=== PATIENT | female | born 1940 | race Caucasian/White ===

== ENCOUNTER 2016-11-18 11:17 | Inpatient (IN) | payer MEDICARE, OTHER ==
[~2016-11-18] VITALS: Ht 167.6 cm; Wt 94.8 kg
[2016-11-18 11:30] VITALS: BP 197/94
[2016-11-18] MEDS ORDERED: IV NS 0.9% 1,000 ML BAG IV ONE (11:30)
[2016-11-18] MEDS ORDERED: VANCOMYCIN 1 GM in IV D5W 250 ML IV ONE (11:30)
[2016-11-18] MEDS ORDERED: CEFTRIAXONE 1GM BAG (ER ONLY) 50 ML IV ONE ×2 (11:30→12:14)
[2016-11-18] MEDS ORDERED: AZITHROMYCIN 500 MG in IV D5W 250 ML IV ONE (11:30)
[2016-11-18 11:53] LABS: BASOPHILS # (AUTO) 0.4 /CMM (0.0-0.2); BASOPHILS % (AUTO) 3.8 % (0.0-2.0); DIFF TOTAL % 100 %; EOSINOPHILS # (AUTO) 0.2 /CMM (0.0-0.7); EOSINOPHILS % (AUTO) 1.7 % (0.0-6.0); HEMATOCRIT 35 % (33-45); HEMOGLOBIN 11.3 g/dL (11.5-14.8); LYMPHOCYTES # (AUTO) 1.4 /CMM (0.8-4.8); LYMPHOCYTES % (AUTO) 13.3 % (20.0-44.0); MEAN CORPUSCULAR HEMOGLOBIN 30 PG (26.0-33.0); MEAN CORPUSCULAR HGB CONC 33 g/dl (31.0-36.0); MEAN CORPUSCULAR VOLUME 92 fL (82-100); MONOCYTES % (AUTO) 9.9 % (2.0-12.0); NEUTROPHILS # (AUTO) 7.6 /CMM (1.8-8.9); NEUTROPHILS % (AUTO) 71.3 % (43.0-81.0); PLATELET COUNT (AUTO) 365 /CMM (150-450); RED BLOOD CELL COUNT(AUTO) 3.79 MIL/uL (4.0-5.2); WHITE BLOOD COUNT (AUTO) 10.6 K/uL (4.3-11.0)
[2016-11-18 12:01] LABS: CALCIUM, SERUM 9.2 mg/dL (8.5-10.1); CREATININE 0.6 mg/dL (0.6-1.3); POTASSIUM 4.7 mmol/L (3.5-5.1)
[2016-11-18 12:07] LABS: ALBUMIN 3.1 g/dL (3.4-5.0); BILIRUBIN,DIRECT 0.1 mg/dL (0.0-0.2); BILIRUBIN,TOTAL 0.3 mg/dL (0.2-1.0); INDIRECT BILIRUBIN 0.2 mg/dL (0.0-1.1); TOTAL PROTEIN, SERUM 7.3 g/dL (6.4-8.2)
[2016-11-18 12:09] LABS: TROPONIN I 0.049 ng/mL (0.00-0.056)
[2016-11-18] MEDS ORDERED: CEFU500T PO (12:15)
[2016-11-18] MEDS ORDERED: ATOR10TA GT (12:15)
[2016-11-18] MEDS ORDERED: ALLO100T GT (12:15)
[2016-11-18] MEDS ORDERED: LOSA50TA21 GT (12:15)
[2016-11-18] MEDS ORDERED: MAGN400O6 GT (12:15)
[2016-11-18] MEDS ORDERED: DIVA125T2 GT (12:15)
[2016-11-18] MEDS ORDERED: OMEP20CA10 GT (12:15)
[2016-11-18] MEDS ORDERED: FERR220S2 GT (12:15)
[2016-11-18] MEDS ORDERED: PRAM0.5T11 GT (12:15)
[2016-11-18] MEDS ORDERED: LORA1TAB GT (12:15)
[2016-11-18] MEDS ORDERED: BISA10SU8 RC (12:15)
[2016-11-18] MEDS ORDERED: DOCU50LI GT (12:15)
[2016-11-18] MEDS ORDERED: MONT10TA22 GT (12:15)
[2016-11-18] MEDS ORDERED: BUME1TAB16 GT (12:15)
[2016-11-18] MEDS ORDERED: ACET-2605 GT (12:15)
[2016-11-18] MEDS ORDERED: RIVA10TA GT (12:15)
[2016-11-18] MEDS ORDERED: BUDE0.5A6 IH (12:15)
[2016-11-18] MEDS ORDERED: LAMO200T39 GT (12:15)
[2016-11-18] MEDS ORDERED: IV SET PRIMARY PUMP SET 1 EA INFUS.SET MC ONE ×4 (12:15→20:10)
[2016-11-18] MEDS ORDERED: GABA-534 GT (12:15)
[2016-11-18] MEDS ORDERED: LEVO25TA9 GT (12:15)
[2016-11-18] MEDS ORDERED: BUDE0.5A4 IH (12:15)
[2016-11-18] MEDS ORDERED: ALBU2.5V12 IH ×2 (12:15)
[2016-11-18] MEDS ORDERED: ESCI10TA GT (12:15)
[2016-11-18] MEDS ORDERED: HYDR-3326 GT (12:15)
[2016-11-18] MEDS ORDERED: SENN8.6T6 GT (12:15)
[2016-11-18] MEDS ORDERED: ACET160S3 GT (12:15)
[2016-11-18] MEDS ORDERED: IPRA0.2S9 IH ×2 (12:15)
[2016-11-18] MEDS ORDERED: CLON0.1T GT (12:15)
[2016-11-18] MEDS ORDERED: IV NS 0.9% 2,000 ML ONE (12:15)
[2016-11-18] MEDS ORDERED: NA P133E RC (12:15)
[2016-11-18] MEDS ORDERED: PRIM250T GT (12:15)
[2016-11-18 12:20] VITALS: BP 91/50
[2016-11-18 12:20] LABS: LACTIC ACID 1.9 mmol/L (0.4-2.0)
[2016-11-18 13:33] VITALS: BP 121/73
[2016-11-18 13:41] LABS: ABG BASE EXCESS -1.1 mmol/L; ABG HCO3 22.9 mmol/L; ABG PCO2 35.2 mmHg (35.0-45.0); ABG PH 7.431 (7.350-7.450); ABG PO2 452.8 mmHg (75.0-100.0); ABG TOTAL HEMOGLOBIN 9.6 G/dL (12.0-16.0); ALLEN TEST Pass; O2Hb 98.9 % (94.0-97.0)
[2016-11-18 14:06] LABS: KETONES,URINE NEGATIVE (NEGATIVE); LEUKOCYTE ESTERASE ,URINE NEGATIVE (NEGATIVE)
[2016-11-18 14:56] VITALS: BP 99/49
[2016-11-18 15:11] LABS: ADD UA MICROSCOPIC YES
[2016-11-18 15:15] LABS: ADD URINE CULTURE NO
[2016-11-18 17:56] VITALS: BP 157/85
[2016-11-18] MEDS ORDERED: FEE PK DOSING 1 MIN EA MC ONE (18:02)
[2016-11-18] MEDS ORDERED: NA PHOS,M-B/NA PHOS,DI-BA 1 EA ENEMA RC PRN (18:30)
[2016-11-18] MEDS ORDERED: HOME MED MISCELLANEOUS XX SCH (18:30)
[2016-11-18] MEDS ORDERED: MISCELLANEOUS MED 1 EA EA GT PRN (18:30)
[2016-11-18] MEDS ORDERED: MISCELLANEOUS MED 1 EA EA XX ONE (18:30)
[2016-11-18] MEDS ORDERED: BISACODYL SUPP (10 MG) 10 MG/SUPP.RECT SUPP.RECT RC PRN (18:30)
[2016-11-18] MEDS ORDERED: MAGNESIUM HYDROXIDE 30 ML UDC GT PRN (18:30)
[2016-11-18 20:00] VITALS: BP 126/79
[2016-11-18] MEDS: IV NS 0.9% 1,000 ML IV PRN (20:15)
[2016-11-18] MEDS: BUDESONIDE RESPULE INH 0.5 MG/2 ML AMPUL.NEB IH SCH (21:00)
[2016-11-18] MEDS: SENNOSIDES 8.6 MG TABLET GT SCH (21:13)
[2016-11-18] MEDS: ATORVASTATIN 10 MG TABLET GT SCH (21:13)
[2016-11-18] MEDS: PRAMIPEXOLE DI-HCL 0.25 MG TABLET GT SCH (21:13)
[2016-11-18] MEDS: FIBERSOURCE HN 1,000 ML BOTTLE GT PRN (21:14)
[2016-11-18] MEDS: HYDROCODONE/APAP 5/325MG 1 EACH TABLET GT PRN (23:19)
[2016-11-19] VITALS: BP 108/72
[2016-11-19] MEDS ORDERED: BUDESONIDE NS ONE (00:10)
[2016-11-19] MEDS: LORAZEPAM 1 MG TABLET GT PRN ×2 (01:52→05:57)
[2016-11-19] MEDS ORDERED: CLOTRIMAZOLE 1% 15 GM TUBE TP ONE (02:24)
[2016-11-19 04:00] VITALS: BP 112/70
[2016-11-19] MEDS: ACETAMINOPHEN 650 MG/20.3 ML UDC GT PRN ×2 (04:01→21:36)
[2016-11-19] MEDS ORDERED: SECONDARY IV SET 1 EA INFUS.SET MC ONE ×3 (05:47→15:31)
[2016-11-19] MEDS ORDERED: VANCOMYCIN 1.25 GM in IV D5W 500 ML IV SCH (07:00)
[2016-11-19 07:06] LABS: BASOPHILS % (AUTO) 0.6 % (0.0-2.0); DIFF TOTAL % 100 %; EOSINOPHILS # (AUTO) 0.1 /CMM (0.0-0.7); EOSINOPHILS % (AUTO) 1.7 % (0.0-6.0); HEMATOCRIT 31 % (33-45); HEMOGLOBIN 10.3 g/dL (11.5-14.8); LYMPHOCYTES % (AUTO) 12.5 % (20.0-44.0); MEAN CORPUSCULAR HEMOGLOBIN 30 PG (26.0-33.0); MEAN CORPUSCULAR HGB CONC 33 g/dl (31.0-36.0); MEAN CORPUSCULAR VOLUME 92 fL (82-100); NEUTROPHILS # (AUTO) 6.1 /CMM (1.8-8.9); NEUTROPHILS % (AUTO) 73.2 % (43.0-81.0); PLATELET COUNT (AUTO) 272 /CMM (150-450); RED BLOOD CELL COUNT(AUTO) 3.39 MIL/uL (4.0-5.2); WHITE BLOOD COUNT (AUTO) 8.3 K/uL (4.3-11.0)
[2016-11-19 07:18] LABS: INR 1.05 (0.87-1.13); PROTHROMBIN TIME 11.3 SECS (9.5-12.7)
[2016-11-19 07:35] LABS: ALBUMIN 2.6 g/dL (3.4-5.0); BILIRUBIN,TOTAL 0.4 mg/dL (0.2-1.0); CALCIUM, SERUM 8.8 mg/dL (8.5-10.1); CREATININE 0.6 mg/dL (0.6-1.3); POTASSIUM 5.4 mmol/L (3.5-5.1); TOTAL PROTEIN, SERUM 6.6 g/dL (6.4-8.2)
[2016-11-19 07:45] LABS: INDIRECT BILIRUBIN 0.4 mg/dL (0.0-1.1)
[2016-11-19 08:00] VITALS: BP 130/70
[2016-11-19] MEDS: PANTOPRAZOLE 40 MG/PACK PACK GT SCH (08:53)
[2016-11-19] MEDS: LEVOTHYROXINE SODIUM 25 MCG TABLET GT SCH (08:53)
[2016-11-19] MEDS: FERROUS SULFATE UDC 300 MG/5 ML UDC PO SCH ×3 (08:53→17:10)
[2016-11-19] MEDS: ALLOPURINOL 100 MG TABLET GT SCH (08:53)
[2016-11-19] MEDS: CLOTRIMAZOLE 1% 15 GM TUBE TP SCH (08:53)
[2016-11-19] MEDS: MONTELUKAST SODIUM (10MG) 10 MG TABLET GT SCH (08:53)
[2016-11-19] MEDS: DIVALPROEX SODIUM 125 MG CAP.SPRINK GT SCH ×3 (08:53→17:10)
[2016-11-19] MEDS: DOCUSATE SODIUM LIQ 100 MG/10 ML UDC GT SCH ×2 (08:53→17:10)
[2016-11-19] MEDS: BUDESONIDE RESPULE INH 0.5 MG/2 ML AMPUL.NEB IH SCH ×2 (09:00→19:41)
[2016-11-19] MEDS: IV NS 0.9% 1,000 ML IV PRN ×2 (09:36→21:36)
[2016-11-19] MEDS: PRIMIDONE 250 MG TABLET GT SCH ×3 (09:37→17:11)
[2016-11-19] MEDS: PHENAZOPYRIDINE HCL 200 MG TABLET GT SCH ×2 (09:37→17:11)
[2016-11-19] MEDS: LamoTRIgine 100 MG TABLET PO SCH (09:59)
[2016-11-19] MEDS: HYDROCODONE/APAP 5/325MG 1 EACH TABLET GT PRN (10:44)
[2016-11-19] MEDS ORDERED: Z GUARD REMEDY 2 OZ OINT TP PRN (11:00)
[2016-11-19 12:00] VITALS: BP 120/66
[2016-11-19] MEDS: Z GUARD REMEDY 2 OZ OINT TP SCH (12:20)
[2016-11-19] MEDS: CEFTRIAXONE 1 G in IV D5W 50 ML IV SCH (12:21)
[2016-11-19] MEDS ORDERED: ZITHROMAX 500 MG/250 ML D5W IV SCH ×2 (15:00)
[2016-11-19 16:00] VITALS: BP 130/82
[2016-11-19] MEDS ORDERED: RIVAROXABAN 10 MG TABLET GT SCH (17:00)
[2016-11-19] MEDS: LACTOBACILLUS RHAMNOSUS GG 1 EACH CAP.SPRINK GT SCH (17:10)
[2016-11-19] MEDS ORDERED: SODIUM POLYSTYRENE SULFONATE 15 G/60 ML BOTTLE PO ONE (19:30)
[2016-11-19] MEDS: IPRATROPIUM NEB FS 0.5 MG/2.5 ML AMPUL.NEB IH PRN (19:41)
[2016-11-19] MEDS: ALBUTEROL FS 2.5 MG/0.5 ML VIAL.NEB IH PRN (19:41)
[2016-11-19 20:00] VITALS: BP 122/77
[2016-11-19] MEDS ORDERED: SODIUM POLYSTYRENE SULFONATE 15 G/60 ML BOTTLE ONE (21:29)
[2016-11-19] MEDS: SENNOSIDES 8.6 MG TABLET GT SCH (21:36)
[2016-11-19] MEDS: PRAMIPEXOLE DI-HCL 0.25 MG TABLET GT SCH (21:36)
[2016-11-19] MEDS: ATORVASTATIN 10 MG TABLET GT SCH (21:36)
[2016-11-19] MEDS: FIBERSOURCE HN 1,000 ML BOTTLE GT PRN (21:41)
[2016-11-19] MEDS ORDERED: IV NS 0.9% 250 ML IV ONE (22:27)
[2016-11-19] MEDS ORDERED: IV SET PRIMARY PUMP SET 1 EA INFUS.SET MC ONE (22:27)
[2016-11-19] MEDS ORDERED: ENALAPRIL MALEATE (10 MG) 10 MG TABLET ONE (23:27)
[2016-11-19] MEDS ORDERED: BUMETANIDE (1 MG) 1 MG TABLET ONE (23:28)
[2016-11-19] MEDS ORDERED: CARVEDILOL 3.125 MG TABLET ONE (23:28)
[2016-11-19] MEDS: ENALAPRIL MALEATE (10 MG) 10 MG TABLET GT SCH (23:43)
[2016-11-19] MEDS: BUMETANIDE (1 MG) 1 MG TABLET GT SCH (23:43)
[2016-11-19] MEDS: CARVEDILOL 3.125 MG TABLET GT SCH (23:44)
[2016-11-20] VITALS: BP 158/80
[2016-11-20 04:00] VITALS: BP 130/76
[2016-11-20 06:59] LABS: BASOPHILS % (AUTO) 0.4 % (0.0-2.0); DIFF TOTAL % 100 %; EOSINOPHILS # (AUTO) 0.1 /CMM (0.0-0.7); HEMATOCRIT 31 % (33-45); HEMOGLOBIN 10.1 g/dL (11.5-14.8); LYMPHOCYTES # (AUTO) 0.7 /CMM (0.8-4.8); LYMPHOCYTES % (AUTO) 8.3 % (20.0-44.0); MEAN CORPUSCULAR HEMOGLOBIN 30 PG (26.0-33.0); MEAN CORPUSCULAR HGB CONC 33 g/dl (31.0-36.0); MEAN CORPUSCULAR VOLUME 92 fL (82-100); MONOCYTES % (AUTO) 12.1 % (2.0-12.0); NEUTROPHILS # (AUTO) 6.4 /CMM (1.8-8.9); NEUTROPHILS % (AUTO) 78.2 % (43.0-81.0); PLATELET COUNT (AUTO) 293 /CMM (150-450); RED BLOOD CELL COUNT(AUTO) 3.32 MIL/uL (4.0-5.2); WHITE BLOOD COUNT (AUTO) 8.2 K/uL (4.3-11.0)
[2016-11-20 07:19] LABS: CALCIUM, SERUM 8.7 mg/dL (8.5-10.1); CREATININE 0.5 mg/dL (0.6-1.3); POTASSIUM 3.1 mmol/L (3.5-5.1)
[2016-11-20 08:00] VITALS: BP 201/126
[2016-11-20 08:28] LABS: TROPONIN I 0.095 ng/mL (0.00-0.056)
[2016-11-20] MEDS: MONTELUKAST SODIUM (10MG) 10 MG TABLET GT SCH (08:44)
[2016-11-20] MEDS: ALLOPURINOL 100 MG TABLET GT SCH (08:44)
[2016-11-20] MEDS: DOCUSATE SODIUM LIQ 100 MG/10 ML UDC GT SCH ×2 (08:44→17:55)
[2016-11-20] MEDS: FERROUS SULFATE UDC 300 MG/5 ML UDC PO SCH ×3 (08:44→17:55)
[2016-11-20] MEDS: LEVOTHYROXINE SODIUM 25 MCG TABLET GT SCH (08:45)
[2016-11-20] MEDS: PRIMIDONE 250 MG TABLET GT SCH ×3 (08:45→17:55)
[2016-11-20] MEDS: PANTOPRAZOLE 40 MG/PACK PACK GT SCH (08:45)
[2016-11-20] MEDS: PHENAZOPYRIDINE HCL 200 MG TABLET GT SCH ×2 (08:45→17:55)
[2016-11-20] MEDS: BUMETANIDE (1 MG) 1 MG TABLET GT SCH ×2 (08:45→17:56)
[2016-11-20] MEDS: ENALAPRIL MALEATE (10 MG) 10 MG TABLET GT SCH ×2 (08:47→17:55)
[2016-11-20] MEDS: DIVALPROEX SODIUM 125 MG CAP.SPRINK GT SCH ×3 (08:47→17:55)
[2016-11-20] MEDS: CARVEDILOL 3.125 MG TABLET GT SCH (08:48)
[2016-11-20] MEDS: CLOTRIMAZOLE 1% 15 GM TUBE TP SCH (09:00)
[2016-11-20] MEDS: Z GUARD REMEDY 2 OZ OINT TP SCH (09:00)
[2016-11-20] MEDS: BUDESONIDE RESPULE INH 0.5 MG/2 ML AMPUL.NEB IH SCH ×2 (09:18→19:21)
[2016-11-20] MEDS: LACTOBACILLUS RHAMNOSUS GG 1 EACH CAP.SPRINK GT SCH ×2 (09:41→17:55)
[2016-11-20] MEDS: LamoTRIgine 100 MG TABLET PO SCH (09:41)
[2016-11-20] MEDS: HYDROCODONE/APAP 5/325MG 1 EACH TABLET GT PRN (09:48)
[2016-11-20] MEDS: MUPIROCIN OINT 2% 22 GM TUBE SCH ×2 (10:30→21:18)
[2016-11-20] MEDS: ASPIRIN 81 MG TAB.CHEW PO SCH (11:30)
[2016-11-20 12:00] VITALS: BP 153/78
[2016-11-20] MEDS ORDERED: METOPROLOL SUCCINATE 50 MG TAB.SR.24H PO ONE (12:00)
[2016-11-20] MEDS: CEFTRIAXONE 1 G in IV D5W 50 ML IV SCH (12:55)
[2016-11-20] MEDS: POTASSIUM CHLORIDE 20 MEQ POWDER PACKET GT SCH ×2 (12:56→14:23)
[2016-11-20] MEDS: ENOXAPARIN SODIUM 100 MG/ML DISP.SYRIN SQ SCH ×2 (12:56→23:32)
[2016-11-20] MEDS: CARVEDILOL 6.25 MG TABLET PO SCH ×2 (13:20→21:17)
[2016-11-20 16:00] VITALS: BP 93/56
[2016-11-20 20:00] VITALS: BP 162/102
[2016-11-20] MEDS: SENNOSIDES 8.6 MG TABLET GT SCH (21:16)
[2016-11-20] MEDS: PRAMIPEXOLE DI-HCL 0.25 MG TABLET GT SCH (21:16)
[2016-11-20] MEDS: ATORVASTATIN 10 MG TABLET GT SCH (21:16)
[2016-11-20] MEDS: LORAZEPAM 1 MG TABLET GT PRN (21:16)
[2016-11-20] MEDS: ACETAMINOPHEN 650 MG/20.3 ML UDC GT PRN (21:19)
[2016-11-21] VITALS (7 sets, daily range): BP systolic 96–127; BP diastolic 44–69
[2016-11-21] MEDS: FIBERSOURCE HN 1,000 ML BOTTLE GT PRN (05:02)
[2016-11-21] MEDS: FERROUS SULFATE UDC 300 MG/5 ML UDC PO SCH ×3 (08:15→17:28)
[2016-11-21] MEDS: PRIMIDONE 250 MG TABLET GT SCH ×3 (08:15→17:30)
[2016-11-21] MEDS: LEVOTHYROXINE SODIUM 25 MCG TABLET GT SCH (08:15)
[2016-11-21] MEDS: ASPIRIN 81 MG TAB.CHEW PO SCH (08:16)
[2016-11-21] MEDS: BUMETANIDE (1 MG) 1 MG TABLET GT SCH ×2 (08:16→17:29)
[2016-11-21] MEDS: DOCUSATE SODIUM LIQ 100 MG/10 ML UDC GT SCH ×2 (08:16→17:29)
[2016-11-21] MEDS: DIVALPROEX SODIUM 125 MG CAP.SPRINK GT SCH ×3 (08:16→17:30)
[2016-11-21] MEDS: ALLOPURINOL 100 MG TABLET GT SCH (08:16)
[2016-11-21] MEDS: LamoTRIgine 100 MG TABLET PO SCH (08:16)
[2016-11-21] MEDS: PHENAZOPYRIDINE HCL 200 MG TABLET GT SCH ×2 (08:16→17:30)
[2016-11-21] MEDS: PANTOPRAZOLE 40 MG/PACK PACK GT SCH (08:16)
[2016-11-21] MEDS: LACTOBACILLUS RHAMNOSUS GG 1 EACH CAP.SPRINK GT SCH ×2 (08:16→17:30)
[2016-11-21] MEDS: MONTELUKAST SODIUM (10MG) 10 MG TABLET GT SCH (08:17)
[2016-11-21] MEDS: CARVEDILOL 6.25 MG TABLET PO SCH ×2 (08:17→21:00)
[2016-11-21] MEDS: CLOTRIMAZOLE 1% 15 GM TUBE TP SCH (08:18)
[2016-11-21] MEDS: MUPIROCIN OINT 2% 22 GM TUBE SCH ×2 (08:19→21:17)
[2016-11-21] MEDS: Z GUARD REMEDY 2 OZ OINT TP SCH (08:19)
[2016-11-21] MEDS: ENALAPRIL MALEATE (10 MG) 10 MG TABLET GT SCH ×2 (08:25→17:31)
[2016-11-21 08:36] LABS: BASOPHILS % (AUTO) 0.3 % (0.0-2.0); DIFF TOTAL % 100 %; EOSINOPHILS # (AUTO) 0.1 /CMM (0.0-0.7); EOSINOPHILS % (AUTO) 1.3 % (0.0-6.0); HEMATOCRIT 29 % (33-45); HEMOGLOBIN 9.8 g/dL (11.5-14.8); LYMPHOCYTES # (AUTO) 0.7 /CMM (0.8-4.8); LYMPHOCYTES % (AUTO) 6.4 % (20.0-44.0); MEAN CORPUSCULAR HEMOGLOBIN 30 PG (26.0-33.0); MEAN CORPUSCULAR HGB CONC 33 g/dl (31.0-36.0); MEAN CORPUSCULAR VOLUME 92 fL (82-100); MONOCYTES % (AUTO) 9.8 % (2.0-12.0); NEUTROPHILS # (AUTO) 8.5 /CMM (1.8-8.9); NEUTROPHILS % (AUTO) 82.2 % (43.0-81.0); PLATELET COUNT (AUTO) 291 /CMM (150-450); RED BLOOD CELL COUNT(AUTO) 3.21 MIL/uL (4.0-5.2); WHITE BLOOD COUNT (AUTO) 10.3 K/uL (4.3-11.0)
[2016-11-21] MEDS: BUDESONIDE RESPULE INH 0.5 MG/2 ML AMPUL.NEB IH SCH ×2 (09:21→20:34)
[2016-11-21 10:15] LABS: CREATININE 0.7 mg/dL (0.6-1.3)
[2016-11-21] MEDS: LORAZEPAM 1 MG TABLET GT PRN (10:16)
[2016-11-21 10:23] LABS: TROPONIN I 0.127 ng/mL (0.00-0.056)
[2016-11-21 10:48] LABS: POTASSIUM 2.6 mmol/L (3.5-5.1)
[2016-11-21] MEDS: ENOXAPARIN SODIUM 100 MG/ML DISP.SYRIN SQ SCH (11:56)
[2016-11-21] MEDS: CEFTRIAXONE 1 G in IV D5W 50 ML IV SCH (12:00)
[2016-11-21] MEDS ORDERED: POTASSIUM CHLORIDE 20 MEQ POWDER PACKET GT ONE ×2 (12:00→18:00)
[2016-11-21] MEDS: HYDROCODONE/APAP 5/325MG 1 EACH TABLET GT PRN (15:48)
[2016-11-21] MEDS: NITROGLYCERIN PACKET 1 GM PACKET TOP SCH (18:00)
[2016-11-21] MEDS: PRAMIPEXOLE DI-HCL 0.25 MG TABLET GT SCH (21:14)
[2016-11-21] MEDS: SENNOSIDES 8.6 MG TABLET GT SCH (21:15)
[2016-11-21] MEDS: ATORVASTATIN 10 MG TABLET GT SCH (21:15)
[2016-11-22] VITALS (8 sets, daily range): BP systolic 116–156; BP diastolic 44–86
[2016-11-22] MEDS: NITROGLYCERIN PACKET 1 GM PACKET TOP SCH ×4 (00:32→18:11)
[2016-11-22] MEDS: ENOXAPARIN SODIUM 100 MG/ML DISP.SYRIN SQ SCH ×2 (00:32→18:04)
[2016-11-22] MEDS: FIBERSOURCE HN 1,000 ML BOTTLE GT PRN (06:33)
[2016-11-22] MEDS: BUDESONIDE RESPULE INH 0.5 MG/2 ML AMPUL.NEB IH SCH ×2 (07:30→21:41)
[2016-11-22] MEDS: PRIMIDONE 250 MG TABLET GT SCH ×4 (08:05→17:54)
[2016-11-22] MEDS: DOCUSATE SODIUM LIQ 100 MG/10 ML UDC GT SCH ×2 (08:05→17:51)
[2016-11-22] MEDS: PANTOPRAZOLE 40 MG/PACK PACK GT SCH (08:05)
[2016-11-22] MEDS: ASPIRIN 81 MG TAB.CHEW PO SCH (08:05)
[2016-11-22] MEDS: DIVALPROEX SODIUM 125 MG CAP.SPRINK GT SCH ×3 (08:05→17:55)
[2016-11-22] MEDS: BUMETANIDE (1 MG) 1 MG TABLET GT SCH ×2 (08:05→17:00)
[2016-11-22] MEDS: FERROUS SULFATE UDC 300 MG/5 ML UDC PO SCH ×3 (08:05→18:00)
[2016-11-22] MEDS: LamoTRIgine 100 MG TABLET PO SCH (08:05)
[2016-11-22] MEDS: MONTELUKAST SODIUM (10MG) 10 MG TABLET GT SCH (08:05)
[2016-11-22] MEDS: LACTOBACILLUS RHAMNOSUS GG 1 EACH CAP.SPRINK GT SCH ×2 (08:05→17:00)
[2016-11-22] MEDS: ALLOPURINOL 100 MG TABLET GT SCH (08:05)
[2016-11-22] MEDS: LEVOTHYROXINE SODIUM 25 MCG TABLET GT SCH (08:05)
[2016-11-22] MEDS: MUPIROCIN OINT 2% 22 GM TUBE SCH ×2 (08:07→20:41)
[2016-11-22] MEDS: Z GUARD REMEDY 2 OZ OINT TP SCH (08:07)
[2016-11-22] MEDS: CLOTRIMAZOLE 1% 15 GM TUBE TP SCH (08:07)
[2016-11-22] MEDS: ENALAPRIL MALEATE (10 MG) 10 MG TABLET GT SCH ×2 (08:11→17:54)
[2016-11-22] MEDS: CARVEDILOL 6.25 MG TABLET PO SCH ×2 (08:12→20:40)
[2016-11-22 09:37] LABS: DIFF TOTAL % 100 %; EOSINOPHILS # (AUTO) 0.1 /CMM (0.0-0.7); EOSINOPHILS % (AUTO) 1.8 % (0.0-6.0); HEMATOCRIT 28 % (33-45); LYMPHOCYTES # (AUTO) 0.6 /CMM (0.8-4.8); LYMPHOCYTES % (AUTO) 7.3 % (20.0-44.0); MEAN CORPUSCULAR HEMOGLOBIN 30 PG (26.0-33.0); MEAN CORPUSCULAR HGB CONC 33 g/dl (31.0-36.0); MEAN CORPUSCULAR VOLUME 92 fL (82-100); MONOCYTES # (AUTO) 0.6 /CMM (0.1-1.30); MONOCYTES % (AUTO) 7.5 % (2.0-12.0); NEUTROPHILS # (AUTO) 6.9 /CMM (1.8-8.9); NEUTROPHILS % (AUTO) 83.4 % (43.0-81.0); PLATELET COUNT (AUTO) 279 /CMM (150-450); RED BLOOD CELL COUNT(AUTO) 2.98 MIL/uL (4.0-5.2); WHITE BLOOD COUNT (AUTO) 8.2 K/uL (4.3-11.0)
[2016-11-22 09:49] LABS: TROPONIN I 0.063 ng/mL (0.00-0.056)
[2016-11-22 09:52] LABS: CALCIUM, SERUM 8.4 mg/dL (8.5-10.1); CREATININE 0.7 mg/dL (0.6-1.3)
[2016-11-22] MEDS: CEFTRIAXONE 1 G in IV D5W 50 ML IV SCH (12:14)
[2016-11-22 13:03] LABS: ADD UA MICROSCOPIC YES; KETONES,URINE NEGATIVE (NEGATIVE); LEUKOCYTE ESTERASE ,URINE NEGATIVE (NEGATIVE)
[2016-11-22 13:04] LABS: ADD URINE CULTURE NO; WBC,URINE 0-2 /HPF (0-3)
[2016-11-22 13:05] LABS: MUCUS,URINE Few /LPF (None Seen)
[2016-11-22] MEDS: POTASSIUM CHLORIDE 20 MEQ POWDER PACKET GT SCH ×4 (16:30→22:24)
[2016-11-22] MEDS ORDERED: POTASSIUM CHLORIDE 20 MEQ POWDER PACKET ONE (21:07)
[2016-11-22] MEDS: PRAMIPEXOLE DI-HCL 0.25 MG TABLET GT SCH (21:16)
[2016-11-22] MEDS: ATORVASTATIN 10 MG TABLET GT SCH (21:16)
[2016-11-22] MEDS: SENNOSIDES 8.6 MG TABLET GT SCH (21:16)
[2016-11-22] MEDS: LORAZEPAM 1 MG TABLET GT PRN (21:16)
[2016-11-23] VITALS (7 sets, daily range): BP systolic 116–148; BP diastolic 59–97
[2016-11-23] MEDS: NITROGLYCERIN PACKET 1 GM PACKET TOP SCH ×4 (00:57→17:38)
[2016-11-23] MEDS: ENOXAPARIN SODIUM 100 MG/ML DISP.SYRIN SQ SCH ×2 (06:04→21:23)
[2016-11-23 07:05] LABS: BASOPHILS % (AUTO) 0.1 % (0.0-2.0); DIFF TOTAL % 100 %; EOSINOPHILS # (AUTO) 0.2 /CMM (0.0-0.7); EOSINOPHILS % (AUTO) 3.5 % (0.0-6.0); HEMATOCRIT 26 % (33-45); HEMOGLOBIN 8.6 g/dL (11.5-14.8); LYMPHOCYTES # (AUTO) 0.9 /CMM (0.8-4.8); LYMPHOCYTES % (AUTO) 14.2 % (20.0-44.0); MEAN CORPUSCULAR HEMOGLOBIN 30 PG (26.0-33.0); MEAN CORPUSCULAR HGB CONC 33 g/dl (31.0-36.0); MEAN CORPUSCULAR VOLUME 92 fL (82-100); MONOCYTES # (AUTO) 0.6 /CMM (0.1-1.30); NEUTROPHILS # (AUTO) 4.7 /CMM (1.8-8.9); NEUTROPHILS % (AUTO) 72.2 % (43.0-81.0); PLATELET COUNT (AUTO) 266 /CMM (150-450); RED BLOOD CELL COUNT(AUTO) 2.84 MIL/uL (4.0-5.2); WHITE BLOOD COUNT (AUTO) 6.5 K/uL (4.3-11.0)
[2016-11-23 07:08] LABS: TROPONIN I 0.061 ng/mL (0.00-0.056)
[2016-11-23 07:31] LABS: CALCIUM, SERUM 8.4 mg/dL (8.5-10.1); CREATININE 0.7 mg/dL (0.6-1.3); POTASSIUM 3.6 mmol/L (3.5-5.1)
[2016-11-23] MEDS: PANTOPRAZOLE 40 MG/PACK PACK GT SCH (09:05)
[2016-11-23] MEDS: DIVALPROEX SODIUM 125 MG CAP.SPRINK GT SCH ×3 (09:05→16:38)
[2016-11-23] MEDS: ALLOPURINOL 100 MG TABLET GT SCH (09:05)
[2016-11-23] MEDS: DOCUSATE SODIUM LIQ 100 MG/10 ML UDC GT SCH ×2 (09:05→16:37)
[2016-11-23] MEDS: FERROUS SULFATE UDC 300 MG/5 ML UDC PO SCH ×3 (09:05→17:38)
[2016-11-23] MEDS: LACTOBACILLUS RHAMNOSUS GG 1 EACH CAP.SPRINK GT SCH ×2 (09:06→16:37)
[2016-11-23] MEDS: LEVOTHYROXINE SODIUM 25 MCG TABLET GT SCH (09:06)
[2016-11-23] MEDS: ASPIRIN 81 MG TAB.CHEW PO SCH (09:06)
[2016-11-23] MEDS: ENALAPRIL MALEATE (10 MG) 10 MG TABLET GT SCH ×2 (09:06→16:41)
[2016-11-23] MEDS: MONTELUKAST SODIUM (10MG) 10 MG TABLET GT SCH (09:06)
[2016-11-23] MEDS: LamoTRIgine 100 MG TABLET PO SCH (09:07)
[2016-11-23] MEDS: CARVEDILOL 6.25 MG TABLET PO SCH ×2 (09:07→21:21)
[2016-11-23] MEDS: BUMETANIDE (1 MG) 1 MG TABLET GT SCH ×2 (09:07→16:38)
[2016-11-23] MEDS: MUPIROCIN OINT 2% 22 GM TUBE SCH ×2 (09:08→21:23)
[2016-11-23] MEDS: Z GUARD REMEDY 2 OZ OINT TP SCH (09:09)
[2016-11-23] MEDS: CLOTRIMAZOLE 1% 15 GM TUBE TP SCH (09:09)
[2016-11-23] MEDS: BUDESONIDE RESPULE INH 0.5 MG/2 ML AMPUL.NEB IH SCH ×2 (09:29→21:31)
[2016-11-23] MEDS: LORAZEPAM 1 MG TABLET GT PRN ×2 (11:39→16:42)
[2016-11-23] MEDS ORDERED: IV NS 0.9% 250 ML IV ONE (12:26)
[2016-11-23] MEDS: PRIMIDONE 250 MG TABLET GT SCH ×2 (12:32→16:41)
[2016-11-23] MEDS: CEFTRIAXONE 1 G in IV D5W 50 ML IV SCH (12:32)
[2016-11-23] MEDS: FIBERSOURCE HN 1,000 ML BOTTLE GT PRN (12:34)
[2016-11-23] MEDS ORDERED: ONDANSETRON HCL/PF 4 MG/2 ML VIAL IV PRN (15:30)
[2016-11-23] MEDS: PHENAZOPYRIDINE HCL 200 MG TABLET GT PRN (16:57)
[2016-11-23 17:14] LABS: INR 1.1 (0.87-1.13); PROTHROMBIN TIME 11.9 SECS (9.5-12.7)
[2016-11-23] MEDS: SENNOSIDES 8.6 MG TABLET GT SCH (21:21)
[2016-11-23] MEDS: ATORVASTATIN 10 MG TABLET GT SCH (21:21)
[2016-11-23] MEDS: HYDROCODONE/APAP 5/325MG 1 EACH TABLET GT PRN (21:22)
[2016-11-23] MEDS: PRAMIPEXOLE DI-HCL 0.25 MG TABLET GT SCH (21:25)
[2016-11-24] VITALS: BP 149/66
[2016-11-24] MEDS: LORAZEPAM INJ 2 MG/ML VIAL IV PRN ×2 (00:35→16:39)
[2016-11-24] MEDS: NITROGLYCERIN PACKET 1 GM PACKET TOP SCH ×4 (00:39→17:48)
[2016-11-24 04:00] VITALS: BP 149/72
[2016-11-24 07:36] LABS: BASOPHILS % (AUTO) 0.2 % (0.0-2.0); DIFF TOTAL % 100 %; EOSINOPHILS # (AUTO) 0.4 /CMM (0.0-0.7); HEMATOCRIT 31 % (33-45); LYMPHOCYTES % (AUTO) 9.8 % (20.0-44.0); MEAN CORPUSCULAR HEMOGLOBIN 30 PG (26.0-33.0); MEAN CORPUSCULAR HGB CONC 33 g/dl (31.0-36.0); MEAN CORPUSCULAR VOLUME 93 fL (82-100); MONOCYTES % (AUTO) 9.3 % (2.0-12.0); NEUTROPHILS # (AUTO) 8.1 /CMM (1.8-8.9); NEUTROPHILS % (AUTO) 76.7 % (43.0-81.0); PLATELET COUNT (AUTO) 329 /CMM (150-450); WHITE BLOOD COUNT (AUTO) 10.6 K/uL (4.3-11.0)
[2016-11-24 07:47] LABS: TROPONIN I 0.066 ng/mL (0.00-0.056)
[2016-11-24 07:54] LABS: ALBUMIN 2.8 g/dL (3.4-5.0); BILIRUBIN,TOTAL 0.3 mg/dL (0.2-1.0); CALCIUM, SERUM 8.6 mg/dL (8.5-10.1); CREATININE 0.7 mg/dL (0.6-1.3); POTASSIUM 3.3 mmol/L (3.5-5.1); TOTAL PROTEIN, SERUM 6.5 g/dL (6.4-8.2)
[2016-11-24 08:00] VITALS: BP 173/96
[2016-11-24] MEDS: BUMETANIDE (1 MG) 1 MG TABLET GT SCH ×2 (08:40→17:47)
[2016-11-24] MEDS: LEVOTHYROXINE SODIUM 25 MCG TABLET GT SCH (08:41)
[2016-11-24] MEDS: ALLOPURINOL 100 MG TABLET GT SCH (08:41)
[2016-11-24] MEDS: DIVALPROEX SODIUM 125 MG CAP.SPRINK GT SCH ×3 (08:41→17:47)
[2016-11-24] MEDS: PANTOPRAZOLE 40 MG/PACK PACK GT SCH (08:41)
[2016-11-24] MEDS: LACTOBACILLUS RHAMNOSUS GG 1 EACH CAP.SPRINK GT SCH ×2 (08:41→17:47)
[2016-11-24] MEDS: LamoTRIgine 100 MG TABLET PO SCH (08:41)
[2016-11-24] MEDS: LORAZEPAM 1 MG TABLET GT PRN (08:42)
[2016-11-24] MEDS: ENALAPRIL MALEATE (10 MG) 10 MG TABLET GT SCH ×2 (08:43→17:00)
[2016-11-24] MEDS: CARVEDILOL 6.25 MG TABLET PO SCH ×2 (08:44→21:21)
[2016-11-24] MEDS: PRIMIDONE 250 MG TABLET GT SCH ×3 (08:44→17:47)
[2016-11-24] MEDS: HYDROCODONE/APAP 5/325MG 1 EACH TABLET GT PRN ×2 (08:45→14:37)
[2016-11-24] MEDS: DOCUSATE SODIUM LIQ 100 MG/10 ML UDC GT SCH ×2 (08:45→17:47)
[2016-11-24] MEDS: MONTELUKAST SODIUM (10MG) 10 MG TABLET GT SCH (08:45)
[2016-11-24] MEDS: FERROUS SULFATE UDC 300 MG/5 ML UDC PO SCH ×3 (08:45→17:47)
[2016-11-24] MEDS: ASPIRIN 81 MG TAB.CHEW PO SCH (08:46)
[2016-11-24] MEDS: MUPIROCIN OINT 2% 22 GM TUBE SCH ×2 (08:46→21:21)
[2016-11-24] MEDS: CLOTRIMAZOLE 1% 15 GM TUBE TP SCH (08:46)
[2016-11-24] MEDS: Z GUARD REMEDY 2 OZ OINT TP SCH (08:47)
[2016-11-24] MEDS: ENOXAPARIN SODIUM 100 MG/ML DISP.SYRIN SQ SCH ×2 (08:49→21:27)
[2016-11-24] MEDS: BUDESONIDE RESPULE INH 0.5 MG/2 ML AMPUL.NEB IH SCH ×2 (09:29→21:06)
[2016-11-24] MEDS: PHENAZOPYRIDINE HCL 200 MG TABLET GT PRN (11:57)
[2016-11-24 12:00] VITALS: BP 94/45
[2016-11-24] MEDS: CEFTRIAXONE 1 G in IV D5W 50 ML IV SCH (12:01)
[2016-11-24] MEDS ORDERED: POTASSIUM CHLORIDE 20 MEQ POWDER PACKET GT SCH (13:00)
[2016-11-24 16:00] VITALS: BP 99/49
[2016-11-24] MEDS: FIBERSOURCE HN 1,000 ML BOTTLE GT PRN (17:55)
[2016-11-24 20:00] VITALS: BP 157/82
[2016-11-24] MEDS: SENNOSIDES 8.6 MG TABLET GT SCH (21:21)
[2016-11-24] MEDS: ATORVASTATIN 10 MG TABLET GT SCH (21:21)
[2016-11-24] MEDS: PRAMIPEXOLE DI-HCL 0.25 MG TABLET GT SCH (21:31)
[2016-11-25] VITALS: BP 115/62
[2016-11-25] MEDS: NITROGLYCERIN PACKET 1 GM PACKET TOP SCH ×5 (00:13→23:30)
[2016-11-25 04:00] VITALS: BP 108/56
[2016-11-25 07:01] LABS: BASOPHILS % (AUTO) 0.5 % (0.0-2.0); DIFF TOTAL % 100 %; EOSINOPHILS # (AUTO) 0.3 /CMM (0.0-0.7); EOSINOPHILS % (AUTO) 4.5 % (0.0-6.0); HEMATOCRIT 29 % (33-45); HEMOGLOBIN 9.3 g/dL (11.5-14.8); LYMPHOCYTES # (AUTO) 1.1 /CMM (0.8-4.8); LYMPHOCYTES % (AUTO) 14.2 % (20.0-44.0); MEAN CORPUSCULAR HEMOGLOBIN 30 PG (26.0-33.0); MEAN CORPUSCULAR HGB CONC 33 g/dl (31.0-36.0); MEAN CORPUSCULAR VOLUME 93 fL (82-100); MONOCYTES # (AUTO) 0.8 /CMM (0.1-1.30); NEUTROPHILS # (AUTO) 5.3 /CMM (1.8-8.9); NEUTROPHILS % (AUTO) 70.8 % (43.0-81.0); PLATELET COUNT (AUTO) 296 /CMM (150-450); RED BLOOD CELL COUNT(AUTO) 3.06 MIL/uL (4.0-5.2); WHITE BLOOD COUNT (AUTO) 7.5 K/uL (4.3-11.0)
[2016-11-25 07:07] LABS: CALCIUM, SERUM 8.6 mg/dL (8.5-10.1); CREATININE 0.7 mg/dL (0.6-1.3); POTASSIUM 3.2 mmol/L (3.5-5.1)
[2016-11-25 07:19] LABS: ALBUMIN 2.7 g/dL (3.4-5.0); BILIRUBIN,TOTAL 0.4 mg/dL (0.2-1.0); TOTAL PROTEIN, SERUM 6.3 g/dL (6.4-8.2)
[2016-11-25 08:00] VITALS: BP 110/55
[2016-11-25] MEDS: LACTOBACILLUS RHAMNOSUS GG 1 EACH CAP.SPRINK GT SCH ×2 (08:38→16:00)
[2016-11-25] MEDS: BUDESONIDE RESPULE INH 0.5 MG/2 ML AMPUL.NEB IH SCH ×3 (08:38→21:23)
[2016-11-25] MEDS: PANTOPRAZOLE 40 MG/PACK PACK GT SCH (08:38)
[2016-11-25] MEDS: PRIMIDONE 250 MG TABLET GT SCH ×3 (08:38→16:00)
[2016-11-25] MEDS: BUMETANIDE (1 MG) 1 MG TABLET GT SCH ×2 (08:38→16:00)
[2016-11-25] MEDS: Z GUARD REMEDY 2 OZ OINT TP SCH (08:39)
[2016-11-25] MEDS: ENALAPRIL MALEATE (10 MG) 10 MG TABLET GT SCH ×2 (08:39→16:00)
[2016-11-25] MEDS: ALLOPURINOL 100 MG TABLET GT SCH (08:39)
[2016-11-25] MEDS: ASPIRIN 81 MG TAB.CHEW PO SCH (08:39)
[2016-11-25] MEDS: MONTELUKAST SODIUM (10MG) 10 MG TABLET GT SCH (08:39)
[2016-11-25] MEDS: FERROUS SULFATE UDC 300 MG/5 ML UDC PO SCH ×3 (08:39→17:00)
[2016-11-25] MEDS: CARVEDILOL 6.25 MG TABLET PO SCH ×2 (08:39→21:17)
[2016-11-25] MEDS: DOCUSATE SODIUM LIQ 100 MG/10 ML UDC GT SCH ×2 (08:39→16:00)
[2016-11-25] MEDS: LEVOTHYROXINE SODIUM 25 MCG TABLET GT SCH (08:39)
[2016-11-25] MEDS: LamoTRIgine 100 MG TABLET PO SCH (08:39)
[2016-11-25] MEDS: DIVALPROEX SODIUM 125 MG CAP.SPRINK GT SCH ×3 (08:39→16:00)
[2016-11-25] MEDS: CLOTRIMAZOLE 1% 15 GM TUBE TP SCH (08:40)
[2016-11-25] MEDS: MUPIROCIN OINT 2% 22 GM TUBE SCH ×2 (08:40→21:27)
[2016-11-25] MEDS: ENOXAPARIN SODIUM 100 MG/ML DISP.SYRIN SQ SCH ×2 (08:41→21:16)
[2016-11-25 09:30] LABS: TROPONIN I 0.043 ng/mL (0.00-0.056)
[2016-11-25] MEDS ORDERED: METOCLOPRAMIDE HCL 10 MG/2 ML VIAL IV SCH (10:30)
[2016-11-25 12:00] VITALS: BP 103/35
[2016-11-25] MEDS: CEFTRIAXONE 1 G in IV D5W 50 ML IV SCH (12:14)
[2016-11-25] MEDS: POTASSIUM CHLORIDE 20 MEQ POWDER PACKET GT SCH ×2 (12:16→14:57)
[2016-11-25] MEDS: FIBERSOURCE HN 1,000 ML BOTTLE GT PRN (15:55)
[2016-11-25 16:00] VITALS: BP 98/35
[2016-11-25 20:00] VITALS: BP 113/55
[2016-11-25] MEDS: SENNOSIDES 8.6 MG TABLET GT SCH (21:24)
[2016-11-25] MEDS: ATORVASTATIN 10 MG TABLET GT SCH (21:24)
[2016-11-25] MEDS: PRAMIPEXOLE DI-HCL 0.25 MG TABLET GT SCH (21:26)
[2016-11-26] VITALS: BP 99/50
[2016-11-26 04:00] VITALS: BP 135/66
[2016-11-26] MEDS: HYDROCODONE/APAP 5/325MG 1 EACH TABLET GT PRN ×2 (04:23→12:43)
[2016-11-26] MEDS: NITROGLYCERIN PACKET 1 GM PACKET TOP SCH ×3 (06:00→17:09)
[2016-11-26 07:19] LABS: BASOPHILS # (AUTO) 0.1 /CMM (0.0-0.2); BASOPHILS % (AUTO) 1.2 % (0.0-2.0); DIFF TOTAL % 100 %; EOSINOPHILS # (AUTO) 0.3 /CMM (0.0-0.7); EOSINOPHILS % (AUTO) 3.6 % (0.0-6.0); HEMATOCRIT 25 % (33-45); HEMOGLOBIN 8.2 g/dL (11.5-14.8); LYMPHOCYTES # (AUTO) 0.7 /CMM (0.8-4.8); LYMPHOCYTES % (AUTO) 9.5 % (20.0-44.0); MEAN CORPUSCULAR HEMOGLOBIN 31 PG (26.0-33.0); MEAN CORPUSCULAR HGB CONC 33 g/dl (31.0-36.0); MEAN CORPUSCULAR VOLUME 93 fL (82-100); MONOCYTES # (AUTO) 0.6 /CMM (0.1-1.30); MONOCYTES % (AUTO) 8.1 % (2.0-12.0); NEUTROPHILS # (AUTO) 5.8 /CMM (1.8-8.9); NEUTROPHILS % (AUTO) 77.6 % (43.0-81.0); PLATELET COUNT (AUTO) 315 /CMM (150-450); RED BLOOD CELL COUNT(AUTO) 2.68 MIL/uL (4.0-5.2); WHITE BLOOD COUNT (AUTO) 7.5 K/uL (4.3-11.0)
[2016-11-26 07:41] LABS: CALCIUM, SERUM 8.3 mg/dL (8.5-10.1); CREATININE 0.8 mg/dL (0.6-1.3); POTASSIUM 3.5 mmol/L (3.5-5.1)
[2016-11-26 08:00] VITALS: BP_SYST 123; BP_SYST 127; BP_DIAS 46; BP_DIAS 51
[2016-11-26] MEDS: BUDESONIDE RESPULE INH 0.5 MG/2 ML AMPUL.NEB IH SCH ×2 (08:00→21:58)
[2016-11-26] MEDS: ALBUTEROL FS 2.5 MG/0.5 ML VIAL.NEB IH PRN (08:00)
[2016-11-26] MEDS: IPRATROPIUM NEB FS 0.5 MG/2.5 ML AMPUL.NEB IH PRN (08:00)
[2016-11-26] MEDS: ASPIRIN 81 MG TAB.CHEW PO SCH (08:26)
[2016-11-26] MEDS: LACTOBACILLUS RHAMNOSUS GG 1 EACH CAP.SPRINK GT SCH ×2 (08:26→16:58)
[2016-11-26] MEDS: LamoTRIgine 100 MG TABLET PO SCH (08:26)
[2016-11-26] MEDS: DOCUSATE SODIUM LIQ 100 MG/10 ML UDC GT SCH ×2 (08:26→16:59)
[2016-11-26] MEDS: FERROUS SULFATE UDC 300 MG/5 ML UDC PO SCH ×3 (08:26→16:59)
[2016-11-26] MEDS: ENALAPRIL MALEATE (10 MG) 10 MG TABLET GT SCH ×2 (08:27→16:58)
[2016-11-26] MEDS: PANTOPRAZOLE 40 MG/PACK PACK GT SCH (08:27)
[2016-11-26] MEDS: ENOXAPARIN SODIUM 100 MG/ML DISP.SYRIN SQ SCH ×2 (08:28→21:42)
[2016-11-26] MEDS: ALLOPURINOL 100 MG TABLET GT SCH (08:28)
[2016-11-26] MEDS: LORAZEPAM INJ 2 MG/ML VIAL IV PRN ×2 (08:28→14:59)
[2016-11-26] MEDS: LEVOTHYROXINE SODIUM 25 MCG TABLET GT SCH (08:28)
[2016-11-26] MEDS: PRIMIDONE 250 MG TABLET GT SCH ×3 (08:29→16:58)
[2016-11-26] MEDS: MONTELUKAST SODIUM (10MG) 10 MG TABLET GT SCH (08:29)
[2016-11-26] MEDS: CARVEDILOL 12.5 MG TABLET PO SCH ×2 (08:29→21:41)
[2016-11-26] MEDS: BUMETANIDE (1 MG) 1 MG TABLET GT SCH ×2 (08:30→16:59)
[2016-11-26] MEDS: DIVALPROEX SODIUM 125 MG CAP.SPRINK GT SCH ×3 (08:30→16:58)
[2016-11-26] MEDS: CLOTRIMAZOLE 1% 15 GM TUBE TP SCH (09:00)
[2016-11-26] MEDS: Z GUARD REMEDY 2 OZ OINT TP SCH (09:00)
[2016-11-26] MEDS: MUPIROCIN OINT 2% 22 GM TUBE SCH ×2 (09:00→21:43)
[2016-11-26 09:08] LABS: TROPONIN I 0.032 ng/mL (0.00-0.056)
[2016-11-26 12:00] VITALS: BP 95/50
[2016-11-26] MEDS: CEFTRIAXONE 1 G in IV D5W 50 ML IV SCH (12:05)
[2016-11-26] MEDS: FIBERSOURCE HN 1,000 ML BOTTLE GT PRN (14:55)
[2016-11-26] MEDS: ACETAMINOPHEN 650 MG/20.3 ML UDC GT PRN (14:59)
[2016-11-26 16:00] VITALS: BP 118/51
[2016-11-26 20:00] VITALS: BP 118/77
[2016-11-26] MEDS: PRAMIPEXOLE DI-HCL 0.25 MG TABLET GT SCH (21:40)
[2016-11-26] MEDS: SENNOSIDES 8.6 MG TABLET GT SCH (21:41)
[2016-11-26] MEDS: ATORVASTATIN 10 MG TABLET GT SCH (21:41)
[2016-11-27] VITALS: BP 97/48
[2016-11-27 04:00] VITALS: BP 96/63
[2016-11-27] MEDS: NITROGLYCERIN PACKET 1 GM PACKET TOP SCH ×4 (06:00→17:16)
[2016-11-27] MEDS: FIBERSOURCE HN 1,000 ML BOTTLE GT PRN (06:07)
[2016-11-27] MEDS: HYDROCODONE/APAP 5/325MG 1 EACH TABLET GT PRN (06:07)
[2016-11-27 07:02] LABS: BASOPHILS # (AUTO) 0.1 /CMM (0.0-0.2); BASOPHILS % (AUTO) 0.9 % (0.0-2.0); DIFF TOTAL % 100 %; EOSINOPHILS # (AUTO) 0.3 /CMM (0.0-0.7); EOSINOPHILS % (AUTO) 4.3 % (0.0-6.0); HEMATOCRIT 26 % (33-45); HEMOGLOBIN 8.5 g/dL (11.5-14.8); LYMPHOCYTES # (AUTO) 0.7 /CMM (0.8-4.8); LYMPHOCYTES % (AUTO) 9.3 % (20.0-44.0); MEAN CORPUSCULAR HEMOGLOBIN 30 PG (26.0-33.0); MEAN CORPUSCULAR HGB CONC 32 g/dl (31.0-36.0); MEAN CORPUSCULAR VOLUME 92 fL (82-100); MONOCYTES # (AUTO) 0.6 /CMM (0.1-1.30); MONOCYTES % (AUTO) 7.5 % (2.0-12.0); NEUTROPHILS # (AUTO) 6.2 /CMM (1.8-8.9); PLATELET COUNT (AUTO) 318 /CMM (150-450); RED BLOOD CELL COUNT(AUTO) 2.84 MIL/uL (4.0-5.2)
[2016-11-27 08:00] VITALS: BP 102/63
[2016-11-27] MEDS: FERROUS SULFATE UDC 300 MG/5 ML UDC PO SCH ×3 (08:08→17:15)
[2016-11-27] MEDS: DOCUSATE SODIUM LIQ 100 MG/10 ML UDC GT SCH ×2 (08:08→17:15)
[2016-11-27] MEDS: DIVALPROEX SODIUM 125 MG CAP.SPRINK GT SCH ×3 (08:08→17:15)
[2016-11-27] MEDS: MONTELUKAST SODIUM (10MG) 10 MG TABLET GT SCH (08:08)
[2016-11-27] MEDS: PANTOPRAZOLE 40 MG/PACK PACK GT SCH (08:09)
[2016-11-27] MEDS: LACTOBACILLUS RHAMNOSUS GG 1 EACH CAP.SPRINK GT SCH ×2 (08:09→17:15)
[2016-11-27] MEDS: BUMETANIDE (1 MG) 1 MG TABLET GT SCH ×2 (08:09→17:15)
[2016-11-27] MEDS: LamoTRIgine 100 MG TABLET PO SCH (08:09)
[2016-11-27] MEDS: ASPIRIN 81 MG TAB.CHEW PO SCH (08:09)
[2016-11-27] MEDS: LEVOTHYROXINE SODIUM 25 MCG TABLET GT SCH (08:09)
[2016-11-27] MEDS: ALLOPURINOL 100 MG TABLET GT SCH (08:10)
[2016-11-27] MEDS: PRIMIDONE 250 MG TABLET GT SCH ×3 (08:10→17:15)
[2016-11-27] MEDS: CARVEDILOL 12.5 MG TABLET PO SCH ×2 (08:11→21:00)
[2016-11-27] MEDS: ENALAPRIL MALEATE (10 MG) 10 MG TABLET GT SCH ×2 (08:12→17:00)
[2016-11-27] MEDS: ENOXAPARIN SODIUM 100 MG/ML DISP.SYRIN SQ SCH (08:12)
[2016-11-27] MEDS: MUPIROCIN OINT 2% 22 GM TUBE SCH ×2 (08:14→21:52)
[2016-11-27] MEDS: Z GUARD REMEDY 2 OZ OINT TP SCH (08:14)
[2016-11-27] MEDS: CLOTRIMAZOLE 1% 15 GM TUBE TP SCH (08:15)
[2016-11-27 09:20] LABS: CALCIUM, SERUM 8.3 mg/dL (8.5-10.1); CREATININE 0.7 mg/dL (0.6-1.3); POTASSIUM 3.3 mmol/L (3.5-5.1)
[2016-11-27] MEDS: BUDESONIDE RESPULE INH 0.5 MG/2 ML AMPUL.NEB IH SCH ×2 (10:39→20:03)
[2016-11-27 12:00] VITALS: BP 115/50
[2016-11-27] MEDS ORDERED: POTASSIUM CHLORIDE 20 MEQ POWDER PACKET GT ONE (12:00)
[2016-11-27] MEDS: CEFTRIAXONE 1 G in IV D5W 50 ML IV SCH (12:12)
[2016-11-27] MEDS: PHENAZOPYRIDINE HCL 200 MG TABLET GT SCH ×2 (12:12→17:15)
[2016-11-27 16:00] VITALS: BP 98/61
[2016-11-27 20:00] VITALS: BP 90/50
[2016-11-27] MEDS ORDERED: CLARITHROMYCIN 500 MG TABLET PO SCH (21:00)
[2016-11-27] MEDS: SENNOSIDES 8.6 MG TABLET GT SCH (21:52)
[2016-11-27] MEDS: PRAMIPEXOLE DI-HCL 0.25 MG TABLET GT SCH (21:53)
[2016-11-27] MEDS: ATORVASTATIN 10 MG TABLET GT SCH (21:53)
[2016-11-28] VITALS: BP 90/50
[2016-11-28] MEDS: NITROGLYCERIN PACKET 1 GM PACKET TOP SCH ×4 (01:00→17:36)
[2016-11-28 04:00] VITALS: BP 121/48
[2016-11-28] MEDS: BUDESONIDE RESPULE INH 0.5 MG/2 ML AMPUL.NEB IH SCH ×2 (07:31→21:17)
[2016-11-28 07:36] LABS: CALCIUM, SERUM 8.6 mg/dL (8.5-10.1); CREATININE 0.7 mg/dL (0.6-1.3)
[2016-11-28 08:00] VITALS: BP 147/77
[2016-11-28] MEDS: LamoTRIgine 100 MG TABLET PO SCH (08:05)
[2016-11-28] MEDS: PHENAZOPYRIDINE HCL 200 MG TABLET GT SCH ×3 (08:05→17:35)
[2016-11-28] MEDS: BUMETANIDE (1 MG) 1 MG TABLET GT SCH ×2 (08:05→17:34)
[2016-11-28] MEDS: LACTOBACILLUS RHAMNOSUS GG 1 EACH CAP.SPRINK GT SCH ×2 (08:05→17:35)
[2016-11-28] MEDS: DOCUSATE SODIUM LIQ 100 MG/10 ML UDC GT SCH ×2 (08:06→17:35)
[2016-11-28] MEDS: FERROUS SULFATE UDC 300 MG/5 ML UDC PO SCH ×3 (08:06→17:36)
[2016-11-28] MEDS: MONTELUKAST SODIUM (10MG) 10 MG TABLET GT SCH (08:06)
[2016-11-28] MEDS: PRIMIDONE 250 MG TABLET GT SCH ×3 (08:06→17:35)
[2016-11-28] MEDS: LEVOTHYROXINE SODIUM 25 MCG TABLET GT SCH (08:06)
[2016-11-28] MEDS: ENALAPRIL MALEATE (10 MG) 10 MG TABLET GT SCH ×2 (08:07→17:00)
[2016-11-28] MEDS: ALLOPURINOL 100 MG TABLET GT SCH (08:07)
[2016-11-28] MEDS: CARVEDILOL 12.5 MG TABLET PO SCH ×2 (08:07→21:19)
[2016-11-28] MEDS: PANTOPRAZOLE 40 MG/PACK PACK GT SCH (08:07)
[2016-11-28] MEDS: DIVALPROEX SODIUM 125 MG CAP.SPRINK GT SCH ×3 (08:07→17:35)
[2016-11-28] MEDS: ASPIRIN 81 MG TAB.CHEW PO SCH (08:07)
[2016-11-28] MEDS: CLOTRIMAZOLE 1% 15 GM TUBE TP SCH (08:08)
[2016-11-28] MEDS: Z GUARD REMEDY 2 OZ OINT TP SCH (08:08)
[2016-11-28] MEDS: MUPIROCIN OINT 2% 22 GM TUBE SCH ×2 (08:10→21:21)
[2016-11-28] MEDS: HYDROCODONE/APAP 5/325MG 1 EACH TABLET GT PRN (09:44)
[2016-11-28 12:00] VITALS: BP 113/57
[2016-11-28 16:00] VITALS: BP 109/52
[2016-11-28] MEDS: FIBERSOURCE HN 1,000 ML BOTTLE GT PRN (17:31)
[2016-11-28 20:00] VITALS: BP 109/52
[2016-11-28] MEDS: PRAMIPEXOLE DI-HCL 0.25 MG TABLET GT SCH (21:18)
[2016-11-28] MEDS: SENNOSIDES 8.6 MG TABLET GT SCH (21:19)
[2016-11-28] MEDS: ATORVASTATIN 10 MG TABLET GT SCH (21:19)
[2016-11-29] VITALS (7 sets, daily range): BP systolic 90–166; BP diastolic 45–91
[2016-11-29] MEDS: HYDROCODONE/APAP 5/325MG 1 EACH TABLET GT PRN (04:49)
[2016-11-29] MEDS: NITROGLYCERIN PACKET 1 GM PACKET TOP SCH ×4 (05:07→18:12)
[2016-11-29] MEDS: BUDESONIDE RESPULE INH 0.5 MG/2 ML AMPUL.NEB IH SCH ×2 (07:30→21:36)
[2016-11-29 07:53] LABS: BASOPHILS % (AUTO) 0.4 % (0.0-2.0); DIFF TOTAL % 100 %; EOSINOPHILS # (AUTO) 0.3 /CMM (0.0-0.7); EOSINOPHILS % (AUTO) 4.7 % (0.0-6.0); HEMATOCRIT 27 % (33-45); LYMPHOCYTES # (AUTO) 0.7 /CMM (0.8-4.8); LYMPHOCYTES % (AUTO) 13.6 % (20.0-44.0); MEAN CORPUSCULAR HEMOGLOBIN 31 PG (26.0-33.0); MEAN CORPUSCULAR HGB CONC 33 g/dl (31.0-36.0); MEAN CORPUSCULAR VOLUME 94 fL (82-100); MONOCYTES # (AUTO) 0.7 /CMM (0.1-1.30); NEUTROPHILS # (AUTO) 3.8 /CMM (1.8-8.9); NEUTROPHILS % (AUTO) 69.3 % (43.0-81.0); PLATELET COUNT (AUTO) 373 /CMM (150-450); WHITE BLOOD COUNT (AUTO) 5.5 K/uL (4.3-11.0)
[2016-11-29 08:14] LABS: CALCIUM, SERUM 8.7 mg/dL (8.5-10.1); CREATININE 0.7 mg/dL (0.6-1.3); POTASSIUM 3.9 mmol/L (3.5-5.1)
[2016-11-29] MEDS: FERROUS SULFATE UDC 300 MG/5 ML UDC PO SCH ×3 (08:36→18:10)
[2016-11-29] MEDS: PANTOPRAZOLE 40 MG/PACK PACK GT SCH (08:36)
[2016-11-29] MEDS: LEVOTHYROXINE SODIUM 25 MCG TABLET GT SCH (08:36)
[2016-11-29] MEDS: ASPIRIN 81 MG TAB.CHEW PO SCH (08:36)
[2016-11-29] MEDS: ALLOPURINOL 100 MG TABLET GT SCH (08:36)
[2016-11-29] MEDS: DIVALPROEX SODIUM 125 MG CAP.SPRINK GT SCH ×3 (08:36→18:10)
[2016-11-29] MEDS: DOCUSATE SODIUM LIQ 100 MG/10 ML UDC GT SCH ×2 (08:36→18:10)
[2016-11-29] MEDS: LACTOBACILLUS RHAMNOSUS GG 1 EACH CAP.SPRINK GT SCH ×2 (08:36→18:10)
[2016-11-29] MEDS: MONTELUKAST SODIUM (10MG) 10 MG TABLET GT SCH (08:36)
[2016-11-29] MEDS: PHENAZOPYRIDINE HCL 200 MG TABLET GT SCH ×3 (08:36→18:10)
[2016-11-29] MEDS: PRIMIDONE 250 MG TABLET GT SCH ×3 (08:37→18:11)
[2016-11-29] MEDS: CARVEDILOL 12.5 MG TABLET PO SCH ×2 (08:37→21:00)
[2016-11-29] MEDS: LamoTRIgine 100 MG TABLET PO SCH (08:37)
[2016-11-29] MEDS: BUMETANIDE (1 MG) 1 MG TABLET GT SCH ×2 (08:37→18:10)
[2016-11-29] MEDS: Z GUARD REMEDY 2 OZ OINT TP SCH (08:39)
[2016-11-29] MEDS: CLOTRIMAZOLE 1% 15 GM TUBE TP SCH (08:40)
[2016-11-29] MEDS: MUPIROCIN OINT 2% 22 GM TUBE SCH ×2 (08:40→21:05)
[2016-11-29] MEDS: ENALAPRIL MALEATE (10 MG) 10 MG TABLET GT SCH ×2 (08:40→18:11)
[2016-11-29] MEDS: LORAZEPAM 1 MG TABLET GT PRN ×2 (16:31→21:03)
[2016-11-29] MEDS: ATORVASTATIN 10 MG TABLET GT SCH (21:02)
[2016-11-29] MEDS: PRAMIPEXOLE DI-HCL 0.25 MG TABLET GT SCH (21:02)
[2016-11-29] MEDS: SENNOSIDES 8.6 MG TABLET GT SCH (21:02)
== END 2016-11-29 22:59 | DRG 870 ==
LOC: ER 11:19 → TELE-TD 16:51 → TELE1 11-20 13:50
PROVIDERS: ADMIT Internal Medicine Rheumatology; ATTEND Internal Medicine Rheumatology
PROC: 5A1955Z Respiratory Ventilation, Greater than 96 Consecutive Hours (ICD-10-PCS; principal; 2016-11-18)
PROC: 05H633Z Insertion of Infusion Device into Left Subclavian Vein, Percutaneous Approach (ICD-10-PCS; 2016-11-18)
PROC: 05H533Z Insertion of Infusion Device into Right Subclavian Vein, Percutaneous Approach (ICD-10-PCS; 2016-11-27)
DX: A41.9 Sepsis, unspecified organism (principal); I21.4 Non-ST elevation (NSTEMI) myocardial infarction; J18.9 Pneumonia, unspecified organism; R65.21 Severe sepsis with septic shock; J44.1 Chronic obstructive pulmonary disease with (acute) exacerbation; J96.11 Chronic respiratory failure with hypoxia; J96.12 Chronic respiratory failure with hypercapnia; Z99.11 Dependence on respirator [ventilator] status; J90 Pleural effusion, not elsewhere classified; N39.0 Urinary tract infection, site not specified; F41.9 Anxiety disorder, unspecified; F03.90 Unspecified dementia, unspecified severity, without behavioral disturbance, psychotic disturbance, mood disturbance, and anxiety; J44.9 Chronic obstructive pulmonary disease, unspecified; E78.5 Hyperlipidemia, unspecified; E03.9 Hypothyroidism, unspecified; I48.91 Unspecified atrial fibrillation; G20 Parkinson's disease; I48.0 Paroxysmal atrial fibrillation; Z87.11 Personal history of peptic ulcer disease; E87.5 Hyperkalemia; I50.9 Heart failure, unspecified; I11.0 Hypertensive heart disease with heart failure; Z93.1 Gastrostomy status; E87.6 Hypokalemia
CPT/HCPCS: 31720; 36415; 36600; 71010-TC; 80048-TC; 80053-TC; 80076-TC; 80164-TC; 81000-TC; 83605-TC; 83735-TC; 83880; 84484-TC; 85025-TC; 85610-TC; 85730-TC; 87040-TC; 87070-TC; 87081-TC; 87086-TC; 87186-TC; 87400; 93307-TC; 94002-TC; 94003-TC; 94640-TC; A4606; J0456; J0696; J1650; J2060; J3370; J7030; J7050; J7060; Z7610

== ENCOUNTER 2019-12-08 10:15 | Inpatient (IN) | payer MEDICARE, OTHER ==
[2019-12-08] VITALS (26 sets, daily range): BP systolic 89–137; BP diastolic 42–92
[~2019-12-08] VITALS: Ht 170.2 cm; Wt 82.1 kg
[~2019-12-08 10:15] MED LIST: ACET-2605 GT; ACET650S26 GT; ALBU2.5V13 IH; ALLO100T GT; ATOR10TA GT; BISA10SU11 RC; BUDE0.5A4 IH; BUDE0.5A6 IH; DIVA125T2 GT; DOCU50LI GT; FERR220S2 GT; HYDR-3974 GT; IPRA0.2S9 IH; LAMO200T10 GT; LEVO25TA9 GT; LORA1TAB GT; MAGN400O6 GT; MONT10TA22 GT; NA P133E RC; OMEP20CA15 GT; PRAM0.5T11 GT; PRIM250T GT; RIVA10TA GT; SENN-261 GT
[2019-12-08] MEDS ORDERED: PIPERACILLIN /TAZOBACTAM 3.375 G in IV D5W 50 ML IV ONE (10:30)
[2019-12-08] MEDS ORDERED: IV NS 0.9% 1,000 ML BAG IV ONE ×2 (10:30→11:30)
[2019-12-08] MEDS ORDERED: VANCOMYCIN HCL 1 GM in IV D5W 260 ML IV ONE (10:30)
--- NOTE | 2019-12-08 10:32 | NUR ---
[place] 89 From [facility] and rehab for "Hypotension/unresponsive +tracheostomy- Bagged on arrival, PT TO BED 5, PT ON MONITOR, MD AT BEDSIDE FOR EVAL
[2019-12-08 11:05] LABS: BASOPHILS % (AUTO) 0.7 % (0.0-2.0); EOSINOPHILS % (AUTO) 2.5 % (0.0-6.0); HEMATOCRIT 41 % (33-45); HEMOGLOBIN 13.3 g/dL (11.5-14.8); LYMPHOCYTES % (AUTO) 17.3 % (20.0-44.0); MEAN CORPUSCULAR HGB CONC 32 g/dl (31.0-36.0); MEAN CORPUSCULAR VOLUME 100 fL (82-100); MONOCYTES # (AUTO) 0.5 /CMM (0.1-1.30); MONOCYTES % (AUTO) 9.3 % (2.0-12.0); NEUTROPHILS % (AUTO) 70.2 % (43.0-81.0); PLATELET COUNT (AUTO) 278 /CMM (150-450); RED BLOOD CELL COUNT(AUTO) 4.16 MIL/uL (4.0-5.2); WHITE BLOOD COUNT (AUTO) 5.7 K/uL (4.3-11.0)
--- NOTE | 2019-12-08 11:12 | NUR ---
urine sent to lab
--- NOTE | 2019-12-08 11:19 | NUR ---
xray at bedside
[2019-12-08 11:22] LABS: APPEARANCE,URINE Clear (CLEAR); BILIRUBIN,URINE Negative (NEGATIVE); BLOOD, URINE Negative Ery/uL (NEGATIVE); COLOR,URINE Yellow (YELLOW); KETONES,URINE Negative (NEGATIVE); LEUKOCYTE ESTERASE ,URINE Negative (NEGATIVE); NITRITE, URINE Negative (NEGATIVE); PH,URINE 5.5 (5.0-8.0); PROTEIN,URINE Negative (NEGATIVE); UGLUCOSE Negative (NEGATIVE); UROBILINOGEN,URINE 0.2 EU/dL (0.2)
[2019-12-08 11:51] LABS: CALCIUM, SERUM 9.4 mg/dL (8.5-10.1); CARBON DIOXIDE 28 mmol/L (21-32); CHLORIDE 105 mmol/L (98-107); CREATININE 1.1 mg/dL (0.6-1.3); GLUCOSE 90 mg/dL (74-106); POTASSIUM 3.2 mmol/L (3.5-5.1); SODIUM SERUM 143 mmol/L (136-145); UREA NITROGEN, BLOOD 26 mg/dL (7-18)
[2019-12-08 11:57] LABS: ALANINE AMINOTRANSFERASE 31 U/L (12-78); ALBUMIN 3.1 g/dL (3.4-5.0); ALKALINE PHOSPHATASE 141 U/L (46-116); ASPARTATE AMINOTRANSFERASE 21 U/L (15-37); BILIRUBIN,DIRECT 0.1 mg/dL (0.0-0.2); BILIRUBIN,TOTAL 0.3 mg/dL (0.2-1.0); TOTAL PROTEIN, SERUM 6.5 g/dL (6.4-8.2)
--- NOTE | 2019-12-08 12:04 | NUR ---
CALLED NURSING SUP FOR ICU BED.
--- NOTE | 2019-12-08 12:05 | NUR ---
PAGED [facility].
[2019-12-08] MEDS ORDERED: ACETAMINOPHEN 650 MG/20.3 ML UDC GT PRN (12:30)
[2019-12-08] MEDS ORDERED: BISACODYL SUPP (10 MG) 10 MG/SUPP.RECT SUPP.RECT RC PRN (12:30)
[2019-12-08] MEDS ORDERED: ALBUTEROL FS 2.5 MG/0.5 ML VIAL.NEB IH PRN (12:30)
[2019-12-08] MEDS ORDERED: ACETAMINOPHEN 650 MG/20.3 ML UDC NG PRN (12:30)
[2019-12-08] MEDS ORDERED: NOREPINEPHRINE 8 MG in IV D5W 500 ML IV PRN ×2 (12:30→13:00)
[2019-12-08] MEDS ORDERED: MAGNESIUM HYDROXIDE 30 ML UDC GT PRN (12:30)
[2019-12-08] MEDS ORDERED: IPRATROPIUM NEB FS 0.5 MG/2.5 ML AMPUL.NEB IH PRN (12:30)
[2019-12-08] MEDS ORDERED: DEXTROSE 50%-WATER 50 ML DISP.SYRIN IV PRN (13:00)
--- NOTE | 2019-12-08 13:00 | NUR ---
RT NOTE: RECEIVED TRACH PT IN ER BAGGED BY SUPERMARKET MANAGER CREW. NO ACUTE RESPIRATORY DISTRESS NOTED UPON ARRIVAL. PLACED PT ON ORDERED ER MD VENT SETTINGS AC RR 16 VT 500 PEEP + 5 @ 40% FIO2. SHILEY XLT CUFFED SIZE 6 TRACH CHECKED SECURE AND PATENT. ALARMS SET ON AND AUDIBLE. TRANSFERRED PT WITH RN AND CONTROL ROOM AGENT TO ICU WITH NO COMPLICATIONS NOTED. REPORT GIVEN TO ICU RT.
--- NOTE | 2019-12-08 13:30 | NUR ---
REPORT GIVEN TO GIAN CHARGE NURSE FOR INGA; PT WILL BE TRANSPORTED TO ICU
[2019-12-08] MEDS ORDERED: FEE PK DOSING 1 MIN EA MC ONE (13:49)
--- NOTE | 2019-12-08 13:50 | NUR ---
PT TRANSPORTED TO ICU
--- NOTE | 2019-12-08 14:00 | NUR ---
received pt from ER, AMS, Septic shock, lethargic, follow simple commands, SB, on the vent, lungs congested, no edema, R NG clamped, F/C, getting levo at 3mcg, daniel hugger on, temp 96.1, v/s stable, no pain, pt cleaned, changed and repositioned.
[2019-12-08] MEDS: IV NS 0.9% 1,000 ML IV SCH ×2 (14:05→23:17)
[2019-12-08] MEDS: PRIMIDONE 250 MG TABLET GT SCH ×2 (14:35→17:49)
[2019-12-08] MEDS: DIVALPROEX SODIUM 125 MG TABLET.DR PO SCH ×2 (14:35→17:49)
[2019-12-08 15:32] LABS: ALBUMIN 2.4 g/dL (3.4-5.0); BILIRUBIN,DIRECT 0.1 mg/dL (0.0-0.2); BILIRUBIN,TOTAL 0.3 mg/dL (0.2-1.0); CALCIUM, SERUM 7.2 mg/dL (8.5-10.1); CREATININE 0.7 mg/dL (0.6-1.3)
[2019-12-08 15:39] LABS: POTASSIUM 2.6 mmol/L (3.5-5.1)
[2019-12-08] MEDS: IPRATROPIUM NEB FS 0.5 MG/2.5 ML AMPUL.NEB NEB SCH ×2 (16:01→20:15)
[2019-12-08] MEDS: ALBUTEROL FS 2.5 MG/0.5 ML VIAL.NEB NEB SCH ×2 (16:01→20:14)
[2019-12-08] MEDS: POTASSIUM CL. PREMIX PERIPHER. 50 ML IV SCH ×4 (16:08→19:03)
[2019-12-08] MEDS: FERROUS SULFATE UDC 300 MG/5 ML UDC GT SCH (16:09)
[2019-12-08] MEDS: DOCUSATE SODIUM LIQ 100 MG/10 ML UDC GT SCH (16:09)
--- NOTE | 2019-12-08 16:30 | NUR ---
RT NOTE PT RECEIVED TRACHED ON MECHANICAL VENTILATION. AMBU BAG @ BEDSIDE. SHILEY [address] TX GIVEN, NO ADVERSE REACTIONS NOTED. SX DONE, TRACH SECURED AND PATENT. MINIMAL SECRETIONS NOTED. NO RESP DISTRESS NOTED AT THIS TIME. WILL MONITOR.
--- NOTE | 2019-12-08 16:32 | NUR ---
RT NOTE PT RECEIVED TRACHED ON MECHANICAL VENTILATION. AMBU BAG @ BEDSIDE. ZEL[place] [address] TX GIVEN, NO ADVERSE REACTIONS NOTED. SX DONE, TRACH SECURED AND PATENT. MINIMAL SECRETIONS NOTED. NO RESP DISTRESS NOTED AT THIS TIME. WILL MONITOR. Addendum: 12/08/19 at 1633 by FANNY GIBBONS RT Amended: Links added.
--- NOTE | 2019-12-08 16:42 | NUR ---
pt is resting in the bed, lethargic, SB, receiving levo at 2mcg, NPO, OK urine output, daniel hugger on, v/s stable, no pain, pt cleaned, changed and repositiond q2hrs, transfusing KCL for K 2.6.
[2019-12-08] MEDS: PIPERACILLIN /TAZOBACTAM 3.375 G in IV D5W 100 ML IV SCH (16:46)
[2019-12-08] MEDS ORDERED: RIVAROXABAN 10 MG TABLET GT SCH (17:00)
[2019-12-08] MEDS: BLOOD SUGAR DIAGNOSTIC 1 EACH STRIP IN SCH ×2 (17:17→23:37)
[2019-12-08] MEDS ORDERED: PIPERACILLIN /TAZOBACTAM 3.375 G in IV D5W 50 ML IV SCH (18:00)
--- NOTE | 2019-12-08 19:10 | NUR ---
RN OPENING NOTES: PATIENT IN BED, ASLEEP, RESTING COMFORTABLY. ON VENT TRACH, TOLERATING WELL. NO RESPIRATORY DISTRESS. NO S/S OF PAIN. NGT IN PLACE. PATIENT HAS BETI MIDLINE, (R) HAND #20, AND (R) FA #22. ALL IV SITES INTACT, PATENT, AND FLUSHING WELL. SAFETY PRECAUTIONS IMPLEMENTED. BED LOCKED AND IN LOWEST POSITION. CALL LIGHT PLACED WITHIN REACH. WILL CONT. TO MONITOR FOR CHANGES. Addendum: 12/09/19 at 0725 by TANMAY MAR RN CORRECTION: PATIENT HAS BETI PICC LINE
[2019-12-08] MEDS: ACETAMINOPHEN ES 500 MG TABLET GT PRN (20:32)
[2019-12-08] MEDS: LORAZEPAM 1 MG TABLET GT PRN (21:15)
[2019-12-08] MEDS: BUDESONIDE RESPULE INH 0.5 MG/2 ML AMPUL.NEB IH SCH (21:15)
[2019-12-08] MEDS ORDERED: PRAMIPEXOLE DI-HCL 0.25 MG TABLET GT SCH (22:00)
[2019-12-08] MEDS ORDERED: ATORVASTATIN 10 MG TABLET GT SCH (22:00)
[2019-12-08] MEDS ORDERED: SENNOSIDES 8.6 MG TABLET GT SCH (22:00)
--- NOTE | 2019-12-08 22:30 | NUR ---
RN NOTE: AT 2230, PATIENT NOTED WITH BP 79/44, HR 51. RESTARTED ON LEVO. WILL CONT. TO MONITOR FOR CHANGES.
[2019-12-08] MEDS ORDERED: PRAMIPEXOLE DI-HCL 0.25 MG TABLET ONE (23:04)
[2019-12-08] MEDS: VANCOMYCIN 1 GM in IV D5W 250 ML IV SCH (23:13)
[2019-12-08] MEDS: INSULIN REGULAR, HUMAN 100 UNIT/ML 3 ML VIAL SQ PRN (23:39)
[2019-12-09] VITALS (28 sets, daily range): BP systolic 103–169; BP diastolic 48–102
[2019-12-09] MEDS: PIPERACILLIN /TAZOBACTAM 3.375 G in IV D5W 100 ML IV SCH ×3 (00:34→17:51)
--- NOTE | 2019-12-09 02:40 | NUR ---
RN NOTE: PATIENT WOKE UP IN DISTRESS AND FEELING RESTLESS MANIFESTED BY DESATURATION. O2 SAT CAME DOWN TO 77%. ASSESSED PATIENT. HOB ELEVATED AND SUCTION DONE. PATIENT NOTED WITH BP 214/138. STOPPED LEVO. ATIVAN ORDERED GIVEN. RT AT BEDSIDE. RT WAS ABLE TO SUCTION OUT A LARGE MUCUS PLUG. O2 SAT WENT UP TO 99%. PATIENT REMAINS ALERT AND ORIENTED X 3, ABLE TO MOUTH WORDS. WILL CONT. TO MONITOR FOR CHANGES. Addendum: 12/09/19 at 0724 by TANMAY MAR RN CORRECTION: PATIENT IS AAOX2.
[2019-12-09] MEDS: LORAZEPAM 1 MG TABLET GT PRN (02:51)
[2019-12-09] MEDS: ACETAMINOPHEN ES 500 MG TABLET GT PRN (03:01)
--- NOTE | 2019-12-09 07:00 | NUR ---
RN CLOSING NOTES: PATIENT IN BED AND AWAKE. ON VENT TRACH, TOLERATING WELL. ABLE TO MOUTH WORDS. NO RESPIRATORY DISTRESS. NO S/S OF PAIN. PATIENT HAS BETI PICC LINE, (R) HAND #20, AND (R) FA #22. ALL IV SITES INTACT, PATENT, AND FLUSHING WELL. SAFETY PRECAUTIONS IMPLEMENTED. BED LOCKED AND IN LOWEST POSITION. PATIENT IN STABLE CONDITION AT THIS TIME. ENDORSED TO AM SHIFT NURSE FOR CONTINUITY OF CARE.
--- NOTE | 2019-12-09 07:15 | NUR ---
EXECUTIVE PASTRY CHEF NOTES RECEIVED BEDSIDE REPORT FROM NOC. PT A/O X4 SLEEPING BUT ABLE TO AROUSE WITH VOICE AND TOUCH VENT/TRACH TOLERATING VENT SETTINGS ORDERED NO S/S OF RESPIRATORY DISTRESS OR PAIN NOTED. SINUS ON MONITOR 50-60. NGT CLAMPED FOR MEDS ONLY PADILLA CATH DRAINING CLEAR YELLOW URINE. IVF RUNNING IN RFA # 22 NS @ 100 ML/HR. R HAND #20 SL BETI MID LINE TRIPLE LUMEN UNABLE TO FLUSH LINES RL ABDOMEN #20 FLUSHING WELL SAFETY AND ASPIRATION PRECAUTIONS IN PLACE BED IN LOW LOCKED POSITION ABLE TO MAKE NEEDS KNOWN AND ALL MET WILL CONT TO MONITOR ACCORDINGLY
[2019-12-09] MEDS: BLOOD SUGAR DIAGNOSTIC 1 EACH STRIP IN SCH ×3 (07:22→18:07)
[2019-12-09] MEDS: IPRATROPIUM NEB FS 0.5 MG/2.5 ML AMPUL.NEB NEB SCH ×4 (07:36→19:31)
[2019-12-09] MEDS: ALBUTEROL FS 2.5 MG/0.5 ML VIAL.NEB NEB SCH ×4 (07:36→19:31)
[2019-12-09] MEDS: FERROUS SULFATE UDC 300 MG/5 ML UDC GT SCH (08:46)
[2019-12-09] MEDS: PANTOPRAZOLE 40 MG VIAL IV SCH (08:46)
[2019-12-09] MEDS: DOCUSATE SODIUM LIQ 100 MG/10 ML UDC GT SCH (08:46)
[2019-12-09] MEDS: ALLOPURINOL 100 MG TABLET GT SCH (08:47)
[2019-12-09] MEDS: PRIMIDONE 250 MG TABLET GT SCH (08:47)
[2019-12-09] MEDS: DIVALPROEX SODIUM 125 MG TABLET.DR PO SCH ×3 (08:47→17:53)
[2019-12-09] MEDS: IV NS 0.9% 1,000 ML IV SCH ×2 (08:52→18:31)
[2019-12-09] MEDS ORDERED: MONTELUKAST SODIUM (10MG) 10 MG TABLET GT SCH (09:00)
[2019-12-09] MEDS ORDERED: LEVOTHYROXINE SODIUM 25 MCG TABLET GT SCH (09:00)
[2019-12-09] MEDS ORDERED: LamoTRIgine 100 MG TABLET GT SCH (09:00)
[2019-12-09] MEDS ORDERED: OMEPRAZOLE 20 MG CAPSULE.DR GT SCH (11:00)
--- NOTE | 2019-12-09 11:20 | NUR ---
PT PLACED ON CPAP
--- NOTE | 2019-12-09 11:20 | NUR ---
TECH AT BEDSIDE FOR ECHO
[2019-12-09] MEDS: VANCOMYCIN 1 GM in IV D5W 250 ML IV SCH ×2 (11:24→23:24)
[2019-12-09] MEDS: BUDESONIDE RESPULE INH 0.5 MG/2 ML AMPUL.NEB IH SCH ×2 (11:34→21:00)
--- NOTE | 2019-12-09 11:45 | NUR ---
SWALLOW EVAL AT BEDSIDE. RT DEFLATED CUFF PT ABLE TO TOLERATE WATER WITH NO COUGHING AND APPLESAUCE. PER MD MARIE TO REMOVE NGT
--- NOTE | 2019-12-09 12:00 | NUR ---
OFFERED PT BED BATH PT REFUSED
--- NOTE | 2019-12-09 12:00 | NUR ---
NGT REMOVED PT TOLERATED
[2019-12-09 12:16] LABS: BASOPHILS # (AUTO) 0.1 /CMM (0.0-0.2); BASOPHILS % (AUTO) 0.8 % (0.0-2.0); EOSINOPHILS % (AUTO) 2.2 % (0.0-6.0); HEMATOCRIT 39 % (33-45); HEMOGLOBIN 12.5 g/dL (11.5-14.8); LYMPHOCYTES # (AUTO) 0.7 /CMM (0.8-4.8); LYMPHOCYTES % (AUTO) 8.5 % (20.0-44.0); MEAN CORPUSCULAR HGB CONC 32 g/dl (31.0-36.0); MEAN CORPUSCULAR VOLUME 98 fL (82-100); MONOCYTES # (AUTO) 0.6 /CMM (0.1-1.30); MONOCYTES % (AUTO) 7.4 % (2.0-12.0); NEUTROPHILS # (AUTO) 6.6 /CMM (1.8-8.9); NEUTROPHILS % (AUTO) 81.1 % (43.0-81.0); PLATELET COUNT (AUTO) 261 /CMM (150-450); RED BLOOD CELL COUNT(AUTO) 3.93 MIL/uL (4.0-5.2); WHITE BLOOD COUNT (AUTO) 8.2 K/uL (4.3-11.0)
[2019-12-09] MEDS: INSULIN REGULAR, HUMAN 100 UNIT/ML 3 ML VIAL SQ PRN ×2 (12:19→18:07)
[2019-12-09 12:27] LABS: CALCIUM, SERUM 8.4 mg/dL (8.5-10.1); CREATININE 0.7 mg/dL (0.6-1.3); POTASSIUM 4.3 mmol/L (3.5-5.1)
[2019-12-09] MEDS ORDERED: PHARMACY TO CHANGE GT/NG MEDS TO PO XX PRN (12:30)
[2019-12-09 12:35] LABS: ALBUMIN 2.9 g/dL (3.4-5.0); BILIRUBIN,TOTAL 0.3 mg/dL (0.2-1.0); MAGNESIUM 2.1 mg/dL (1.8-2.4); PHOSPHORUS 2.9 mg/dL (2.5-4.9); TOTAL PROTEIN, SERUM 6.1 g/dL (6.4-8.2)
[2019-12-09] MEDS ORDERED: FERROUS SULFATE UDC 300 MG/5 ML UDC PO SCH (12:39)
[2019-12-09] MEDS ORDERED: MAGNESIUM HYDROXIDE 30 ML UDC PO PRN (12:41)
[2019-12-09 12:43] LABS: THYROID STIMULATING HORMONE 1.683 uIU/mL (0.358-3.74)
[2019-12-09] MEDS ORDERED: ACETAMINOPHEN 650 MG/20.3 ML UDC PO PRN (12:43)
[2019-12-09] MEDS: PRIMIDONE 250 MG TABLET PO SCH ×2 (13:02→17:52)
[2019-12-09] MEDS: FERROUS SULFATE UDC 300 MG/5 ML UDC PO SCH ×2 (13:02→17:52)
[2019-12-09] MEDS: LORAZEPAM 1 MG TABLET PO PRN ×2 (13:48→20:02)
--- NOTE | 2019-12-09 17:30 | NUR ---
OFFERED PT BED BATH AGAIN PT REFUSED REPOSITIONED FOR COMFORT
[2019-12-09] MEDS: DOCUSATE SODIUM LIQ 100 MG/10 ML UDC PO SCH (17:52)
[2019-12-09] MEDS: RIVAROXABAN 10 MG TABLET PO SCH (17:54)
--- NOTE | 2019-12-09 18:00 | NUR ---
PT VERY NEEDY CONSTANTLY CORRESPONDENCE SCHOOL TEACHER LIGHT ASKING FOR FOOD AND TO GO HOME.
--- NOTE | 2019-12-09 18:39 | NUR ---
PT CONT TO ASK FOR FOOD EXPLAINED THAT SHE CANNOT HAVE MEALS TILL EVALUATED BY ST PT PREVIOUSLY ON PUREE DIET BUT NON COMPLIANT
--- NOTE | 2019-12-09 18:55 | NUR ---
PT SUCTIONED AND REPOSITIONED
--- NOTE | 2019-12-09 19:07 | NUR ---
REPORT GIVEN TO NOC
[2019-12-09] MEDS: ONDANSETRON HCL/PF 4 MG/2 ML VIAL IVP PRN (19:45)
--- NOTE | 2019-12-09 19:45 | NUR ---
REGIONAL RECRUITER NOTE PT C/O NAUSEA, SPITTING OUT SALIVA SMALL AMOUNT. ZOFRAN 4 MG IVP GIVEN. CONTINUE TO MONITOR HER.
--- NOTE | 2019-12-09 20:00 | NUR ---
UTILIZATION REVIEW COORDINATOR NOTE PT IN BED SITTING UP, A/O X 4, MOUTH AND WRITE WORDS. ON VENT/TRACH TOLERATING THE SETTINGS WELL. RT AT BED SIDE. NO DISTRESS OR DISCOMFORT NOTED. DENIES PAIN. ON TELE SINUS ARRHYTHMIA WITH PVC'S HR 83. F/C INTACT AND PATENT DRAINING YELLOWISH COLOR URINE. PT REMAIN NPO EXCEPT MEDS. PT MID LINE INTACT BUT OCCLUDED. RT HAND # 20 G INFUSING NS AT 100 ML/HR, NO S/S OF INFILTRATION NOTED. KEPT HER DRY AND CLEAN. ALL NEEDS ATTENDED. VSS. CONTINUE TO MONITOR HER.
[2019-12-09] MEDS: ATORVASTATIN 10 MG TABLET PO SCH (22:01)
[2019-12-09] MEDS: SENNOSIDES 8.6 MG TABLET PO SCH (22:01)
[2019-12-09] MEDS: PRAMIPEXOLE DI-HCL 0.25 MG TABLET PO SCH (22:02)
[2019-12-10] VITALS (39 sets, daily range): BP systolic 90–161; BP diastolic 45–98
[2019-12-10] MEDS: BLOOD SUGAR DIAGNOSTIC 1 EACH STRIP IN SCH ×5 (00:01→23:29)
[2019-12-10] MEDS: PIPERACILLIN /TAZOBACTAM 3.375 G in IV D5W 100 ML IV SCH ×2 (00:57→09:05)
[2019-12-10] MEDS: diphenhydrAMINE HCL 25 MG CAPSULE PO PRN ×3 (02:37→17:02)
--- NOTE | 2019-12-10 02:37 | NUR ---
SUPERVISOR MARBLE NOTE PT IN ITCHING ALL OVER ON AND OFF. TAYA KELLY ANESTHESIOLOGY TECH CALLED AND RECEIVED NEW ORDER, ORDER NOTED AND CARRIED OUT. BENADRYL 25 MG PO GIVEN. CONTINUE TO MONITOR HER.
--- NOTE | 2019-12-10 03:37 | NUR ---
CHIEF CLERK NOTE ITCHING SUBSIDED. PT FALL ASLEEP, AROUSABLE. NO DISTRESS NOTED.
--- NOTE | 2019-12-10 04:10 | NUR ---
BROACH OPERATOR NOTE PT REFUSED X RAY TAKEN AT THIS TIME.
[2019-12-10] MEDS: IV NS 0.9% 1,000 ML IV SCH ×2 (05:02→16:35)
[2019-12-10 05:09] LABS: CALCIUM, SERUM 8.2 mg/dL (8.5-10.1); CREATININE 0.6 mg/dL (0.6-1.3); POTASSIUM 3.7 mmol/L (3.5-5.1)
--- NOTE | 2019-12-10 06:59 | NUR ---
DECKHAND OYSTER DREDGE NOTE PT IN NO DISTRESS OR DISCOMFORT, DENIES PAIN. ALL NEEDS ATTENDED. NO CHANGE IN CONDITION. PT ENDORSE TO DAY SHIFT NURSE FOR CONTINUE TO CARE.
--- NOTE | 2019-12-10 07:00 | NUR ---
SAP PI ARCHITECT NOTE RECEIVED PT ON BED, A/Ox3-4, ANXIOUS, MOUTH WORDS , TRACH DEPENDENT ON CPAP MODE ON VENT , TOLERATING THE SETTING WELL, ON TELE ST HR IN 110'S ,F/C INTACT AND PATENT DRAINING YELLOWISH COLOR URINE. PT REMAIN NPO EXCEPT MEDS. RT HAND # 20 G INFUSING NS AT 100 ML/HR, L UPPER ARM IV SITE CLEAN, DRY AND INTACT, NO S/S OF INFILTRATION NOTED. KEPT HER DRY AND CLEAN. ALL NEEDS ATTENDED. VSS. CONTINUE TO MONITOR HER.
[2019-12-10] MEDS: LEVOTHYROXINE SODIUM 25 MCG TABLET PO SCH (07:21)
[2019-12-10] MEDS: LORAZEPAM 1 MG TABLET PO PRN ×3 (07:21→17:02)
--- NOTE | 2019-12-10 07:30 | NUR ---
RN NOTES UNABLE TO FLUSH R UPPER ARM MIDLINE, NURSING BATTERY ENGINEER NOTIFED,
[2019-12-10] MEDS: IPRATROPIUM NEB FS 0.5 MG/2.5 ML AMPUL.NEB NEB SCH ×4 (07:33→19:49)
[2019-12-10] MEDS: ALBUTEROL FS 2.5 MG/0.5 ML VIAL.NEB NEB SCH ×4 (07:33→19:49)
[2019-12-10] MEDS: ALLOPURINOL 100 MG TABLET GT SCH (08:12)
[2019-12-10] MEDS: FERROUS SULFATE UDC 300 MG/5 ML UDC PO SCH ×3 (08:12→16:31)
[2019-12-10] MEDS: DOCUSATE SODIUM LIQ 100 MG/10 ML UDC PO SCH ×2 (08:12→16:33)
[2019-12-10] MEDS: PANTOPRAZOLE 40 MG VIAL IV SCH (08:13)
[2019-12-10] MEDS: LamoTRIgine 100 MG TABLET PO SCH (08:13)
[2019-12-10] MEDS: MONTELUKAST SODIUM (10MG) 10 MG TABLET PO SCH (08:13)
[2019-12-10] MEDS: DIVALPROEX SODIUM 125 MG TABLET.DR PO SCH ×3 (08:22→16:33)
[2019-12-10] MEDS: PRIMIDONE 250 MG TABLET PO SCH ×3 (08:23→16:32)
[2019-12-10] MEDS: BUDESONIDE RESPULE INH 0.5 MG/2 ML AMPUL.NEB IH SCH ×2 (09:00→20:55)
[2019-12-10] MEDS: MUPIROCIN OINT 2% 22 GM TUBE SCH ×2 (09:13→21:18)
[2019-12-10] MEDS: ONDANSETRON HCL/PF 4 MG/2 ML VIAL IVP PRN (09:13)
[2019-12-10 10:07] LABS: ABG BASE EXCESS -0.9 mmol/L; ABG OXYGEN SATURATION 97.3 % (92.0-98.5); ABG PCO2 33.4 mmHg (35.0-45.0); ABG PH 7.447 (7.350-7.450); ABG PO2 95.1 mmHg (75.0-100.0); AaDO2 79.6 mmHg; COHb 0.5 % (0.5-1.5); MetHb 0.3 % (0.0-1.5); O2Hb 96.5 % (94.0-97.0); PEEP,BG 5 cm H2O; SITE, ABG Left Radial; VT, ABG 500 mL
[2019-12-10] MEDS: methylPREDNISolone SOD SUCC 125 MG/2ML VIAL IV SCH ×2 (10:17→16:33)
[2019-12-10] MEDS: VANCOMYCIN 1 GM in IV D5W 250 ML IV SCH (11:24)
--- NOTE | 2019-12-10 12:00 | NUR ---
RN NOTES PT IS VERY ANXIOUS AT TIMES , VSS STABLE, CONTINUE TO MONITOR ,
--- NOTE | 2019-12-10 16:30 | NUR ---
RN NOTES R FEMORAL TLC PICC LINE INSERTED BY MIDLINE NURSE , PT STABLE , CONTINUE TO MONITOR.
[2019-12-10] MEDS: RIVAROXABAN 10 MG TABLET PO SCH (16:32)
[2019-12-10] MEDS ORDERED: CEFEPIME 2 GM in IV NS 0.9% 50 ML IV SCH (18:00)
--- NOTE | 2019-12-10 18:00 | NUR ---
RN NOTES VSS STABLE, WILL ENDOSE TO HOUSEKEEPER HOME NURSE FOR CONTINUITY OF CARE .
[2019-12-10] MEDS: CEFEPIME 2 GM in IV D5W 100 ML IV SCH (18:58)
--- NOTE | 2019-12-10 19:30 | NUR ---
SHELL MAKER LOCKSTITCH NOTE, RECEIVED PATIENT ON BED, A/Ox3-4, MOUTH WORDS , ABLE TO LET NEEDS KNOWN, ON MECHANICAL VENTILATOR, TOLERATING SETTING WELL, ON TELE ST HR IN 70S-80S AT THIS TIME, RT HAND # 20 G INFUSING NS AT 100 ML/HR, RIGHT FEMORAL TLC, BOTH PATENT AND INTACT, NS 0.9% INFUSING AT 100ML/HR WELL AND PATIENT TOLERATED WELL, F/C IN PLACED, PATENTCY INTACT, DRAINING YELLOWISH COLOR URINE, PATIENT DRY AND CLEAN AND WELL REPOSITIONED AT THIS TIME, CALL LIGHT W/I REACH, ALL NEEDS ATTEND, WILL CONTINUE TO MONITOR CLOSELY.
[2019-12-10] MEDS: PRAMIPEXOLE DI-HCL 0.25 MG TABLET PO SCH (21:15)
[2019-12-10] MEDS: SENNOSIDES 8.6 MG TABLET PO SCH (21:15)
[2019-12-10] MEDS: ATORVASTATIN 10 MG TABLET PO SCH (21:16)
[2019-12-10] MEDS: ACETAMINOPHEN ES 500 MG TABLET PO PRN (21:16)
[2019-12-10] MEDS: INSULIN REGULAR, HUMAN 100 UNIT/ML 3 ML VIAL SQ PRN (23:29)
[2019-12-11] VITALS (29 sets, daily range): BP systolic 88–170; BP diastolic 34–127
[2019-12-11] MEDS: CEFEPIME 2 GM in IV D5W 100 ML IV SCH ×3 (02:28→17:30)
--- NOTE | 2019-12-11 02:35 | NUR ---
RT NOTE Pt rec'd trached on [facility] vent on AC mode. Pt is awake and alert. No resp distress or SOB noted. Trach is patent and secured. Sx'd for thick mod amt of pale yellow secretions. Alarms are set and audible, Vent plugged into red outlet. Ambu bag bedside. Addendum: 12/11/19 at 0236 by RANJIT KELLER RT Amended: Links added.
[2019-12-11 04:57] LABS: CALCIUM, SERUM 8.5 mg/dL (8.5-10.1); CREATININE 0.6 mg/dL (0.6-1.3); POTASSIUM 3.6 mmol/L (3.5-5.1)
[2019-12-11] MEDS: BLOOD SUGAR DIAGNOSTIC 1 EACH STRIP IN SCH ×3 (06:05→18:47)
[2019-12-11] MEDS: IV NS 0.9% 1,000 ML IV SCH (06:36)
--- NOTE | 2019-12-11 07:15 | NUR ---
RN NOTES, NO SIGNIFICANT CHANGE IN CONDITION DURING THE NIGHT, ENDORSED AT THIS TIME TO KATHYA HOLM CONTINUE IN IV FLUIDS ORDERED VIA RIGHT FEMORAL TLC, ACCESS PATENT AND INTACT.
--- NOTE | 2019-12-11 07:30 | NUR ---
RN NOTE: Received patient in bed, awake, alert and mouth words. Respiration even and unlabored and was saturating well with the current vent setting. Patient was due for a weaning CPAP mode today per Dr. Haque's order. Will inform RT Antwon about it. (R) femoral PICC line noted patent and intact and dressing changed was provided. NS @100ml/hr. Afebrile. Skin warm to touch. Bed alarmed and locked at all times. Call light within reach. Needs anticipated.
[2019-12-11] MEDS: IPRATROPIUM NEB FS 0.5 MG/2.5 ML AMPUL.NEB NEB SCH ×4 (07:35→20:33)
[2019-12-11] MEDS: ALBUTEROL FS 2.5 MG/0.5 ML VIAL.NEB NEB SCH ×4 (07:35→20:33)
--- NOTE | 2019-12-11 07:35 | NUR ---
RT Pt received orally intubated on mechanical ventilation with noted settings. Vent alarms are set and is plugged into red outlet. Pt switched to CPAP, tolerating well at this time. No SOB or respiratory distress noted. Addendum: 12/11/19 at 0839 by REGIS PEMBERTON RT Amended: Links added. Addendum: 12/11/19 at 0842 by REGIS PEMBERTON RT ERROR pt is trached. RT Pt received trached on mechanical ventilation with noted settings. Vent alarms are set and is plugged into red outlet. Pt switched to CPAP, tolerating well at this time. No SOB or respiratory distress noted.
--- NOTE | 2019-12-11 08:00 | NUR ---
RN NOTE: Patient was switched to CPAP mode on the mechanical ventilator with PMV attached to her. Able to tolerate the weaning process for the first 30 mins, but after that patient verbalized having short of breath and Antwon RT was made aware of it. Patient was switched back to the AC mode of the ventilator. Dr. Haque made aware. Patient ate 25% of her breakfast meal. Per Dr. Haque, keep the patient on AC mode and put the PMV during meal time. RT Antwon made aware of this.
--- NOTE | 2019-12-11 08:15 | NUR ---
RT Pt received orally intubated on mechanical ventilation with noted settings. Vent alarms are set and is plugged into red outlet. Pt switched to CPAP, tolerating well at this time. No SOB or respiratory distress noted.
--- NOTE | 2019-12-11 08:15 | NUR ---
RT Pt failed weaning, pt had increased WOB, became tachycardic, and gasping. Pt switched back on previous vent settings. Discontinue weaning for today and only have PMV during meals per Dr. Haque verbal order. Addendum: 12/11/19 at 0839 by REGIS PEMBERTON RT Amended: Links added.
[2019-12-11] MEDS: LEVOTHYROXINE SODIUM 25 MCG TABLET PO SCH (08:20)
[2019-12-11 09:29] LABS: ABG BASE EXCESS -0.9 mmol/L; ABG OXYGEN SATURATION 98.2 % (92.0-98.5); ABG PCO2 39.9 mmHg (35.0-45.0); ABG PH 7.395 (7.350-7.450); ABG PO2 136.1 mmHg (75.0-100.0); AaDO2 175.5 mmHg; COHb 0.3 % (0.5-1.5); MetHb 0.4 % (0.0-1.5); O2Hb 97.5 % (94.0-97.0); PEEP,BG 5 cm H2O; SITE, ABG Right Radial; VT, ABG 500 mL
[2019-12-11] MEDS: BUDESONIDE RESPULE INH 0.5 MG/2 ML AMPUL.NEB IH SCH ×2 (09:32→20:34)
[2019-12-11] MEDS: MONTELUKAST SODIUM (10MG) 10 MG TABLET PO SCH (09:49)
[2019-12-11] MEDS: methylPREDNISolone SOD SUCC 125 MG/2ML VIAL IV SCH ×2 (09:49→17:29)
[2019-12-11] MEDS: FERROUS SULFATE UDC 300 MG/5 ML UDC PO SCH ×3 (09:50→17:28)
[2019-12-11] MEDS: PANTOPRAZOLE 40 MG VIAL IV SCH (09:50)
[2019-12-11] MEDS: ALLOPURINOL 100 MG TABLET GT SCH (09:50)
[2019-12-11] MEDS: LamoTRIgine 100 MG TABLET PO SCH (09:50)
[2019-12-11] MEDS: DOCUSATE SODIUM LIQ 100 MG/10 ML UDC PO SCH ×2 (09:50→17:28)
[2019-12-11] MEDS: DIVALPROEX SODIUM 125 MG TABLET.DR PO SCH ×3 (09:53→17:28)
[2019-12-11] MEDS: PRIMIDONE 250 MG TABLET PO SCH ×3 (09:53→17:28)
[2019-12-11] MEDS: MUPIROCIN OINT 2% 22 GM TUBE SCH ×2 (09:54→21:48)
--- NOTE | 2019-12-11 13:20 | NUR ---
RN NOTE: Patient was transferred to [facility] Room 106 and hand-off bedside report to KATHYA Rosenthal for continuity of care. Patient refused to eat her lunch.
[2019-12-11] MEDS: RIVAROXABAN 10 MG TABLET PO SCH (17:29)
[2019-12-11] MEDS: INSULIN REGULAR, HUMAN 100 UNIT/ML 3 ML VIAL SQ PRN (18:14)
--- NOTE | 2019-12-11 19:25 | NUR ---
TD RN NOTE, RECEIVED PATIENT ON BED, A/Ox3-4, ON MECHANICAL VENTILATOR, TOLERATING SETTING WELL, MOUTH WORDS, ABLE TO LET NEEDS KNOWN, NSR WITH OCCASIONAL PVS ON TELE MONITOR WITH HR 70A AT THIS TIME, RIGHT FEMORAL TLC, BOTH PATENT AND INTACT, F/C IN PLACED, PATENTCY INTACT, DRAINING YELLOWISH COLOR URINE, PATIENT DRY AND CLEAN AND WELL REPOSITIONED AT THIS TIME, CALL LIGHT W/I REACH, ALL NEEDS ATTEND, BILATERAL S/R OD BED UP, WILL CONTINUE TO MONITOR CLOSE
--- NOTE | 2019-12-11 19:29 | NUR ---
RN CLOSING NOTES PT DENIES ANY PAIN OR SOB. PT REQUESTING LIGHTS OFF IN ROOM. PT TOLERATING VENT WELL AND SPO2 AT 99%. PT IS IN BED IN SEMI MARQUEZ POSITION WITH PADILLA DRAINING TO GRAVITY. REPORT GIVEN TO GLOBAL SUPPLY CHAIN DIRECTOR RN FOR INGA.
[2019-12-11] MEDS: PRAMIPEXOLE DI-HCL 0.25 MG TABLET PO SCH (21:47)
[2019-12-11] MEDS: ATORVASTATIN 10 MG TABLET PO SCH (21:47)
[2019-12-11] MEDS: SENNOSIDES 8.6 MG TABLET PO SCH (21:48)
[2019-12-12] VITALS (7 sets, daily range): BP systolic 90–125; BP diastolic 47–95
[2019-12-12] MEDS: diphenhydrAMINE HCL 25 MG CAPSULE PO PRN (00:21)
[2019-12-12] MEDS: BLOOD SUGAR DIAGNOSTIC 1 EACH STRIP IN SCH ×4 (00:22→18:07)
[2019-12-12] MEDS: CEFEPIME 2 GM in IV D5W 100 ML IV SCH ×3 (01:08→17:32)
[2019-12-12] MEDS: ACETAMINOPHEN ES 500 MG TABLET PO PRN ×3 (04:24→22:11)
[2019-12-12 06:32] LABS: BASOPHILS % (AUTO) 0.6 % (0.0-2.0); EOSINOPHILS % (AUTO) 2.3 % (0.0-6.0); HEMATOCRIT 35 % (33-45); HEMOGLOBIN 11.2 g/dL (11.5-14.8); LYMPHOCYTES # (AUTO) 0.9 /CMM (0.8-4.8); LYMPHOCYTES % (AUTO) 16.7 % (20.0-44.0); MEAN CORPUSCULAR HGB CONC 32 g/dl (31.0-36.0); MEAN CORPUSCULAR VOLUME 98 fL (82-100); MONOCYTES # (AUTO) 0.7 /CMM (0.1-1.30); MONOCYTES % (AUTO) 13.2 % (2.0-12.0); NEUTROPHILS # (AUTO) 3.7 /CMM (1.8-8.9); NEUTROPHILS % (AUTO) 67.2 % (43.0-81.0); PLATELET COUNT (AUTO) 204 /CMM (150-450); RED BLOOD CELL COUNT(AUTO) 3.53 MIL/uL (4.0-5.2); WHITE BLOOD COUNT (AUTO) 5.5 K/uL (4.3-11.0)
[2019-12-12] MEDS: LORAZEPAM 1 MG TABLET PO PRN (06:40)
[2019-12-12 07:01] LABS: CALCIUM, SERUM 8.7 mg/dL (8.5-10.1); CREATININE 0.8 mg/dL (0.6-1.3); POTASSIUM 3.2 mmol/L (3.5-5.1)
[2019-12-12] MEDS: INSULIN REGULAR, HUMAN 100 UNIT/ML 3 ML VIAL SQ PRN ×2 (07:01→18:09)
--- NOTE | 2019-12-12 07:20 | NUR ---
RN OPENING NOTE PATIENT IS IN BED, ASLEEP AND EASY TO AROUSE. ON MECHANICAL VENTILATION AND TOLERATING SETTINGS WELL, NO SOB AND NOT IN RESPIRATORY DISTRESS. ON CARDIAC MONITORING SHOWING SINUS RHYTHM WITH SINUS BRADYCARDIA NOTED. IV SITE IN RIGHT FEMORAL AREA, CLEAN AND DRY. PATENT AND IN PLACE. PADILLA CATHETER IN PLACE AND DRAINING CLEAR YELLOW URINE. ON CONTACT ISOLATION. STAFF AWARE AND COMPLIANCE NOTED. NO PAIN NOTED IN PATIENT. CALL LIGHT IN REACH, SIDE RAILS UP X3. BED LOCKED, LOW AND AT SEMI-MARQUEZ'S POSITION. NEED ANTICIPATED. WILL CONTINUE TO MONITOR.
--- NOTE | 2019-12-12 07:22 | NUR ---
RN NOTES, PATIENT ON MECHANICAL VENTILATOR, AROUND PATIENT COMPLAIN OF SOB, HR INCREASED TO 115, O2 CONTINUED 100%, AND STARTED CRYING, AT TIMES EPISODES OF CRYING AND ANXIETY, AGREED WITH ATIVAN AND ADMINISTERED ORDERED, RT AT BED SIDE AND ALSO REQUESTED A BREATHING TREATMENT, AT THIS TIME PATIENT CALM AND NO SOB/ACUTE DISTRESS NOTED, MAJOR CHANGE IN CONDITION DURING THE NIGHT, ALL NEEDS ATTENDED, BED LOCKED AND IN LOW POSITION, SIDE RAILS X2, CALL LIGHT WITHIN REACH , HOB AT ALL TIMES, WILL ENDORSE CONTINUITY OF CARE TO ONCOMING NURSE
[2019-12-12] MEDS: ALBUTEROL FS 2.5 MG/0.5 ML VIAL.NEB NEB SCH ×4 (08:06→19:36)
[2019-12-12] MEDS: IPRATROPIUM NEB FS 0.5 MG/2.5 ML AMPUL.NEB NEB SCH ×4 (08:06→19:36)
[2019-12-12] MEDS: LEVOTHYROXINE SODIUM 25 MCG TABLET PO SCH (08:07)
[2019-12-12] MEDS: MUPIROCIN OINT 2% 22 GM TUBE SCH ×2 (09:00→21:28)
[2019-12-12] MEDS: BUDESONIDE RESPULE INH 0.5 MG/2 ML AMPUL.NEB IH SCH ×2 (09:56→19:37)
--- NOTE | 2019-12-12 10:00 | NUR ---
rn note: patient refused mupirocin ointment. risks and benefits explained. offered x3. still refused.
[2019-12-12] MEDS: LamoTRIgine 100 MG TABLET PO SCH (10:31)
[2019-12-12] MEDS: methylPREDNISolone SOD SUCC 125 MG/2ML VIAL IV SCH ×2 (10:31→17:30)
[2019-12-12] MEDS: MONTELUKAST SODIUM (10MG) 10 MG TABLET PO SCH (10:32)
[2019-12-12] MEDS: DOCUSATE SODIUM LIQ 100 MG/10 ML UDC PO SCH ×2 (10:32→17:30)
[2019-12-12] MEDS: FERROUS SULFATE UDC 300 MG/5 ML UDC PO SCH ×3 (10:32→17:30)
[2019-12-12] MEDS: PANTOPRAZOLE 40 MG VIAL IV SCH (10:32)
[2019-12-12] MEDS: POTASSIUM CHLORIDE 20 MEQ TAB.PRT.SR PO SCH ×2 (10:32→13:26)
[2019-12-12] MEDS: ALLOPURINOL 100 MG TABLET GT SCH (10:32)
[2019-12-12] MEDS: DIVALPROEX SODIUM 125 MG TABLET.DR PO SCH ×3 (10:32→17:30)
[2019-12-12] MEDS: PRIMIDONE 250 MG TABLET PO SCH ×3 (11:31→17:30)
--- NOTE | 2019-12-12 11:32 | NUR ---
rn note: am medications given late due to patient request
--- NOTE | 2019-12-12 17:05 | NUR ---
RT NOTE Pt rec'd trached on [facility] vent on charted settings. Trach is patent and secured. Alarms are set and audible. Vent plugged into red outlet. Ambu bag bedside. No resp distress or sob noted t/o shift. Pt is stable. Will continue to monitor. Addendum: 12/12/19 at 1809 by BAKARI CASTELLON RT Amended: Links added.
[2019-12-12] MEDS: RIVAROXABAN 10 MG TABLET PO SCH (17:31)
--- NOTE | 2019-12-12 19:00 | NUR ---
RN CLOSING NOTE: PATIENT STILL IN BED. AWAKE, ALERT AND ORIENTED X3.. PATIENT REMAINS IN STABLE CONDITION. EKG DONE EARLIER SHOWS SINUS RHYTHM. TURNING AND REPOSITIONING DONE Q2H AND QPRN. TREATMENT DONE ORDERED. ISOLATION PRECAUTIONS OBSERVED. TOLERATED MEALS WITH PMV AND NO DISTRESS WAS OBSERVED. NO PAIN NOTED IN PATIENT. CALL LIGHT IN REACH, SIDE RAILS UP X3. BED LOCKED, LOW AND AT SEMI-MARQUEZ'S POSITION. NEEDS ANTICIPATED. ENDORSED TO ONCOMING SHIFT FOR INGA.
--- NOTE | 2019-12-12 19:20 | NUR ---
RN NOTE, RECEIVED PATIENT ON BED, A/Ox3-4, ON MECHANICAL VENTILATOR, TOLERATING SETTING WELL, MOUTH WORDS, ABLE TO LET NEEDS KNOWN, NSR ON TELE MONITOR WITH HR 60SA AT THIS TIME, RIGHT FEMORAL TLC, BOTH PATENT AND INTACT, F/C IN PLACED PATENTCY INTACT, DRAINING YELLOW COLOR URINE, PATIENT DRY AND CLEAN, CALL LIGHT W/I REACH, BILATERAL S/R OD BED UP, BED LOCKED AND LOWEST POSITION WILL CONTINUE TO MONITOR CLOSELY.
--- NOTE | 2019-12-12 20:03 | NUR ---
RT NOTE PT RECEIVED TRACHED ON MECHANICAL VENTILATION. PT IS AWAKE/ALERT. AMBU BAG @ BEDSIDE. TX GIVEN, NO ADVERSE REACTIONS NOTED. SX DONE, TRACH SECURED AND PATENT. ALARMS ON AND AUDIBLE. VENT PLUGGED TO RED OUTLET. NO SOB NOTED AT THIS TIME. CONT. PULSE OX CONNECTED. Addendum: 12/12/19 at 2003 by FANNY GIBBONS RT Amended: Links added.
[2019-12-12] MEDS: ATORVASTATIN 10 MG TABLET PO SCH (21:26)
[2019-12-12] MEDS: PRAMIPEXOLE DI-HCL 0.25 MG TABLET PO SCH (21:26)
[2019-12-12] MEDS: SENNOSIDES 8.6 MG TABLET PO SCH (21:27)
[2019-12-13] VITALS: BP 138/60
[2019-12-13] MEDS: diphenhydrAMINE HCL 25 MG CAPSULE PO PRN (00:17)
[2019-12-13] MEDS: BLOOD SUGAR DIAGNOSTIC 1 EACH STRIP IN SCH ×4 (00:20→17:02)
[2019-12-13] MEDS: CEFEPIME 2 GM in IV D5W 100 ML IV SCH ×3 (01:12→17:02)
[2019-12-13 04:00] VITALS: BP 155/65
[2019-12-13] MEDS: ACETAMINOPHEN ES 500 MG TABLET PO PRN (04:29)
[2019-12-13] MEDS: INSULIN REGULAR, HUMAN 100 UNIT/ML 3 ML VIAL SQ PRN (05:04)
[2019-12-13 06:24] LABS: BASOPHILS % (AUTO) 0.6 % (0.0-2.0); EOSINOPHILS % (AUTO) 2.1 % (0.0-6.0); HEMATOCRIT 34 % (33-45); HEMOGLOBIN 11.1 g/dL (11.5-14.8); LYMPHOCYTES # (AUTO) 1.1 /CMM (0.8-4.8); LYMPHOCYTES % (AUTO) 19.5 % (20.0-44.0); MEAN CORPUSCULAR HGB CONC 33 g/dl (31.0-36.0); MEAN CORPUSCULAR VOLUME 97 fL (82-100); MONOCYTES # (AUTO) 0.7 /CMM (0.1-1.30); MONOCYTES % (AUTO) 12.9 % (2.0-12.0); NEUTROPHILS # (AUTO) 3.6 /CMM (1.8-8.9); NEUTROPHILS % (AUTO) 64.9 % (43.0-81.0); PLATELET COUNT (AUTO) 225 /CMM (150-450); RED BLOOD CELL COUNT(AUTO) 3.45 MIL/uL (4.0-5.2); WHITE BLOOD COUNT (AUTO) 5.5 K/uL (4.3-11.0)
--- NOTE | 2019-12-13 06:35 | NUR ---
RN NOTE, PATIENT ON BED, A/Ox3-4, ON MECHANICAL VENTILATOR, TOLERATING SETTING WELL, NO SIGNIFICANT CHANGE IN CONDITION DURING THE NIGHT, CALL LIGHT W/I REACH, BILATERAL S/R OF BED UP, BED LOCKED AND LOWEST POSITION, WILL CONTINUE TO MONITOR CLOSELY.
[2019-12-13 06:47] LABS: CALCIUM, SERUM 8.8 mg/dL (8.5-10.1); CREATININE 0.8 mg/dL (0.6-1.3); POTASSIUM 3.6 mmol/L (3.5-5.1)
--- NOTE | 2019-12-13 07:00 | NUR ---
DATA VISUALIZATION DEVELOPER - OPENING PATIENT IS AWAKE AND ORIENTED X 4 . PATIENT IS NON VERBAL BUT WRITES EVERYTHING DOWN IN ORDER TO COMMUNICATE. PATIENT IS CURRENTLY GETTING CHEST XRAY. PATIENT IS COOPERATIVE . PATIENT IS CURRENTLY ON VENT SETTINGS PERSCRIBED BY DOCTOR. PATIENT HAS A PADILLA INTACT AND PATENT WITH CLEAR , YELLOW URINE. PATIENT IS HAS A RIGHT FEMORAL . BED LOCKED AND LOWEST POSITION CALL LIGHT WITH IN REACH ALL SAFETY MEASURE IMPLEMENTED PER HOSPITAL POLICY. PATIENT HAS 2X RAILS UP.
[2019-12-13] MEDS: LEVOTHYROXINE SODIUM 25 MCG TABLET PO SCH (07:30)
[2019-12-13 08:00] VITALS: BP 163/92
[2019-12-13] MEDS: ALBUTEROL FS 2.5 MG/0.5 ML VIAL.NEB NEB SCH ×4 (08:34→19:59)
[2019-12-13] MEDS: IPRATROPIUM NEB FS 0.5 MG/2.5 ML AMPUL.NEB NEB SCH ×4 (08:34→20:00)
[2019-12-13] MEDS: BUDESONIDE RESPULE INH 0.5 MG/2 ML AMPUL.NEB IH SCH ×2 (08:36→22:16)
[2019-12-13] MEDS: DOCUSATE SODIUM LIQ 100 MG/10 ML UDC PO SCH ×3 (08:56→16:51)
[2019-12-13] MEDS: FERROUS SULFATE UDC 300 MG/5 ML UDC PO SCH ×4 (08:56→16:51)
[2019-12-13] MEDS: PANTOPRAZOLE 40 MG VIAL IV SCH (08:57)
[2019-12-13] MEDS: methylPREDNISolone SOD SUCC 125 MG/2ML VIAL IV SCH ×2 (08:57→16:56)
[2019-12-13] MEDS: PRIMIDONE 250 MG TABLET PO SCH ×4 (08:57→16:52)
[2019-12-13] MEDS: ALLOPURINOL 100 MG TABLET GT SCH (08:57)
[2019-12-13] MEDS: DIVALPROEX SODIUM 125 MG TABLET.DR PO SCH ×4 (08:57→16:52)
[2019-12-13] MEDS: LamoTRIgine 100 MG TABLET PO SCH (08:58)
[2019-12-13] MEDS: MONTELUKAST SODIUM (10MG) 10 MG TABLET PO SCH (08:58)
[2019-12-13] MEDS: MUPIROCIN OINT 2% 22 GM TUBE SCH ×2 (09:26→22:15)
--- NOTE | 2019-12-13 09:28 | NUR ---
CENTRAL OFFICE WORKER - PATIENT MORNING MEDICATION ATTEMTED TO GIVE MEDICATION. PATIENT TRIED TO TO BE TAKEN OFF VENT WITH RT AT BEDSIDE PATIENT WAS UNABLE TO CATCH BREATHING . PATIENT SATURATION WAS AT 86- 80 % . PATIENT SEEM LIKE SHE WAS TRYING TO COUGHING AND BURPING PATIENT WAS UNABLE TO BREATHING ON HER OWN. MEDICATION WERE NOT GIVEN PATIENT BACK ON VENT.
[2019-12-13 12:00] VITALS: BP 136/76
[2019-12-13 16:00] VITALS: BP 109/71
[2019-12-13] MEDS: RIVAROXABAN 10 MG TABLET PO SCH (16:53)
--- NOTE | 2019-12-13 18:11 | NUR ---
TRACH CUFF DEFLATED AND PLACED ON SPEAKING VALVE FOR ASPIRATION PRECAUTION. RN NOTIFIED. Addendum: 12/13/19 at 1811 by ERICK WARREN RT Amended: Links added.
--- NOTE | 2019-12-13 18:34 | NUR ---
TAR ROOFER NOTES - CLOSING PATIENT IS A/O X3 PATIENT IS ON VENT WITH SETTING PRESCRIBE BY DOCTOR. IS ON EXTERNAL MONITOR IN THE 50'S PATIENT IS EVENS WHEN ASLEEP PATIENTS PULSE IS IN THE 40'S . PATIENT PATIENT SKIN IS IN TACT. R FEMORAL WILNER PATENT AND INTACT. NO SIGNS OF SOB, NO PAIN, NO ACUTE RESPIRATORY DISTRESS. BED LOCKED AND LOWEST POSITION CALL LIGHT WITH IN REACH ALL SAFETY MEASURE IMPLEMENTED PER HOSPITAL POLICY
--- NOTE | 2019-12-13 19:30 | NUR ---
CNS RECEIVED PATIENT A/O X4 PATIENT IS ABLE TO MOUTH WORDS AND ON A VENTILATOR. NO SIGN OF ANY DISTRESS OF SOB. VENT IS A A SHILEY #6 WITH AC 16. TV 500, FIO2 30%, AND PEEP OF 5. PATIENT HAS A RT FEMORAL PICC LINE PATENT NO SIGN OF INFILTRATION. PATIENT IS ON THE MONITOR SHOWING SINUS EVENS IN THE 50'S. ALL SAFETY PRECAUTIONS HAVE BEEN APPLIED. WILL CONTINUE TO MONITOR PATIENT FOR INGA.
[2019-12-13 20:00] VITALS: BP 113/50
[2019-12-13] MEDS: SENNOSIDES 8.6 MG TABLET PO SCH (22:14)
[2019-12-13] MEDS: PRAMIPEXOLE DI-HCL 0.25 MG TABLET PO SCH (22:15)
[2019-12-13] MEDS: ATORVASTATIN 10 MG TABLET PO SCH (22:15)
--- NOTE | 2019-12-13 23:41 | NUR ---
RT NOTE PT RECEIVED TRACHED ON MECHANICAL VENTILATION. AWAKE/ALERT. AMBU BAG/BACK UP TRACH @ BEDSIDE. TX GIVEN, NO ADVERSE REACTIONS NOTED. SX DONE, TRACH SECURED AND PATENT. ALARMS ON AND AUDIBLE. NO SOB NOTED. CONT. PULSE OX CONNECTED. NO SOB NOTED AT THIS TIME. Addendum: 12/13/19 at 2343 by FANNY GIBBONS RT Amended: Links added.
[2019-12-14] VITALS: BP 112/45
[2019-12-14] MEDS: BLOOD SUGAR DIAGNOSTIC 1 EACH STRIP IN SCH ×4 (00:59→18:15)
[2019-12-14] MEDS: CEFEPIME 2 GM in IV D5W 100 ML IV SCH ×2 (01:00→10:25)
[2019-12-14 04:00] VITALS: BP 91/51
[2019-12-14 06:22] LABS: BASOPHILS # (AUTO) 0.1 /CMM (0.0-0.2); BASOPHILS % (AUTO) 0.9 % (0.0-2.0); EOSINOPHILS % (AUTO) 2.8 % (0.0-6.0); HEMATOCRIT 35 % (33-45); HEMOGLOBIN 11.4 g/dL (11.5-14.8); LYMPHOCYTES # (AUTO) 1.4 /CMM (0.8-4.8); LYMPHOCYTES % (AUTO) 23.5 % (20.0-44.0); MEAN CORPUSCULAR HGB CONC 33 g/dl (31.0-36.0); MEAN CORPUSCULAR VOLUME 97 fL (82-100); MONOCYTES # (AUTO) 0.8 /CMM (0.1-1.30); MONOCYTES % (AUTO) 13.4 % (2.0-12.0); NEUTROPHILS # (AUTO) 3.6 /CMM (1.8-8.9); NEUTROPHILS % (AUTO) 59.4 % (43.0-81.0); PLATELET COUNT (AUTO) 239 /CMM (150-450); WHITE BLOOD COUNT (AUTO) 6.1 K/uL (4.3-11.0)
[2019-12-14 06:27] LABS: CALCIUM, SERUM 8.8 mg/dL (8.5-10.1); CREATININE 0.7 mg/dL (0.6-1.3); POTASSIUM 3.4 mmol/L (3.5-5.1)
--- NOTE | 2019-12-14 07:00 | NUR ---
RN OPENING NOTES PT IS ASLEEP IN SEMI MARQUEZ POSITION ON VENTILATOR. PT HAS EQUAL CHEST RISE AND FALL BILATERALLY. PT IS INCONTINENT AND HAS A DIAPER ON PER DIRECTOR FINANCIAL SYSTEMS REPORT. ON TELE MONITOR PT IS SB IN THE HR 50'S. WILL CONTINUE TO MONITOR.
--- NOTE | 2019-12-14 07:18 | NUR ---
SERVICE CENTER SPECIALIST CLOSING NOTE PATIENT IN BED WITH NO SIGN OF ANY DISTRESS. ALL SFETY PRECAUTIONS APPLIED. PATIENT STABLE THROUGH OUT NIGHT. ENDORSED PATIENT TO MORNING SHIFT NURSE FOR INGA.
[2019-12-14] MEDS: ALBUTEROL FS 2.5 MG/0.5 ML VIAL.NEB NEB SCH ×3 (07:35→15:02)
[2019-12-14] MEDS: IPRATROPIUM NEB FS 0.5 MG/2.5 ML AMPUL.NEB NEB SCH ×3 (07:35→15:02)
[2019-12-14 08:00] VITALS: BP 110/55
[2019-12-14] MEDS: LEVOTHYROXINE SODIUM 25 MCG TABLET PO SCH (08:32)
[2019-12-14] MEDS: methylPREDNISolone SOD SUCC 125 MG/2ML VIAL IV SCH ×2 (08:33→17:32)
[2019-12-14] MEDS: FERROUS SULFATE UDC 300 MG/5 ML UDC PO SCH ×3 (08:33→17:32)
[2019-12-14] MEDS: PRIMIDONE 250 MG TABLET PO SCH ×3 (08:33→17:00)
[2019-12-14] MEDS: PANTOPRAZOLE 40 MG VIAL IV SCH (08:33)
[2019-12-14] MEDS: ALLOPURINOL 100 MG TABLET GT SCH (08:34)
[2019-12-14] MEDS: DOCUSATE SODIUM LIQ 100 MG/10 ML UDC PO SCH ×2 (08:34→17:32)
[2019-12-14] MEDS: MONTELUKAST SODIUM (10MG) 10 MG TABLET PO SCH (08:34)
[2019-12-14] MEDS: DIVALPROEX SODIUM 125 MG TABLET.DR PO SCH ×3 (08:34→17:32)
[2019-12-14] MEDS: LamoTRIgine 100 MG TABLET PO SCH (08:34)
[2019-12-14] MEDS: MUPIROCIN OINT 2% 22 GM TUBE SCH (08:35)
[2019-12-14] MEDS ORDERED: POTASSIUM CHLORIDE 20 MEQ POWDER PACKET NG SCH (09:30)
[2019-12-14] MEDS: BUDESONIDE RESPULE INH 0.5 MG/2 ML AMPUL.NEB IH SCH (09:32)
[2019-12-14 12:00] VITALS: BP 103/62
[2019-12-14 16:00] VITALS: BP 95/59
[2019-12-14] MEDS: RIVAROXABAN 10 MG TABLET PO SCH (17:45)
--- NOTE | 2019-12-14 18:00 | NUR ---
REPORT GIVEN TO ALEXIS AT [facility]. PER RN RATE CLERK AT [facility] OK TO LEAVE IN PIC LINE IN RIGHT THIGH. Addendum: 12/14/19 at 2001 by KITTY SCOTT RN PT REFUSING PHOTOS AT THIS TIME SHE STATES SHE IS EAGER TO GO HOME.
--- NOTE | 2019-12-14 19:42 | NUR ---
furniture assembly supervisor RECEIVE PT IN BED. A/O X 4, TOLERATING VENT SETTINGS ORDERED. FOR DISCHARGE AWAITING TRANSPORT. PT STABLE. WILL CONT TO MONITOR
--- NOTE | 2019-12-14 23:14 | NUR ---
PATIENT DISCHARGE PT CONTRACT DESIGN AGENT VIA [employer] WITH VENT AALIYAH MOLINA [facility] [address] [facility], PATIENT ON STABLE CONDITION NO S/S OF DISTRESS NOTED, VS STABLE, BP 110/77 R 19 P 51 T 98.4 02 SAT 100% HEALTH EDUCATION PROVIDED TO THE PT. PT VERBALIZED UNDERSTANDING. NO BELONGINGS. DISCHARGE INSTRUCTIONS HOME MED PRESCRIPTION WAS GIVEN TO EMT. CONTINUE VENT SETTINGS ORDERED. CHERYL 6, PT A/O X4, THANKFUL AND APPRECIATIVE TO NURSES. RIGHT FEMORAL PICC LINE WAS NOT REMOVED ENDORSED PER DAY SHIFT RN I.D MADHAV FF UP ANTIBIOTIC AND PER ALEXIS [place] CREDIT DIRECTOR. CHARGE NURSE AWARE AND AGREED. Addendum: 12/15/19 at 0016 by CHARO ROBERT RN ADDENDUM: ASKED PT IF SHE RECEIVED FLU SHOT THIS SEASON. PER PT SHE RECEIVED IT VIA "NODS" AND REFUSED. EDUCATION PROVIDED TO THE PT
== END 2019-12-14 20:00 | DRG 870 ==
LOC: ER 10:18 → ICU 13:26 → TELE-TD 12-11 13:21 → TELE1 12-12 08:54
PROVIDERS: ADMIT Registered Nurse; ATTEND Internal Medicine
PROC: 5A1955Z Respiratory Ventilation, Greater than 96 Consecutive Hours (ICD-10-PCS; principal; 2019-12-08)
PROC: 02HV33Z Insertion of Infusion Device into Superior Vena Cava, Percutaneous Approach (ICD-10-PCS; 2019-12-08)
PROC: B548ZZA Ultrasonography of Superior Vena Cava, Guidance (ICD-10-PCS; 2019-12-08)
PROC: 06H033Z Insertion of Infusion Device into Inferior Vena Cava, Percutaneous Approach (ICD-10-PCS; 2019-12-10)
PROC: B549ZZA Ultrasonography of Inferior Vena Cava, Guidance (ICD-10-PCS; 2019-12-10)
DX: A41.9 Sepsis, unspecified organism (principal); R65.21 Severe sepsis with septic shock; G92 Toxic encephalopathy; J69.0 Pneumonitis due to inhalation of food and vomit; J96.20 Acute and chronic respiratory failure, unspecified whether with hypoxia or hypercapnia; I13.0 Hypertensive heart and chronic kidney disease with heart failure and stage 1 through stage 4 chronic kidney disease, or unspecified chronic kidney disease; E87.2 Acidosis; Z99.11 Dependence on respirator [ventilator] status; J44.0 Chronic obstructive pulmonary disease with (acute) lower respiratory infection; B96.20 Unspecified Escherichia coli [E. coli] as the cause of diseases classified elsewhere; G40.909 Epilepsy, unspecified, not intractable, without status epilepticus; E03.9 Hypothyroidism, unspecified; E66.9 Obesity, unspecified; E78.5 Hyperlipidemia, unspecified; E87.6 Hypokalemia; G20 Parkinson's disease; I25.10 Atherosclerotic heart disease of native coronary artery without angina pectoris; I25.5 Ischemic cardiomyopathy; I48.91 Unspecified atrial fibrillation; I50.9 Heart failure, unspecified; F41.9 Anxiety disorder, unspecified; F32.9 Major depressive disorder, single episode, unspecified; F02.80 Dementia in other diseases classified elsewhere, unspecified severity, without behavioral disturbance, psychotic disturbance, mood disturbance, and anxiety; K21.9 Gastro-esophageal reflux disease without esophagitis; Z87.891 Personal history of nicotine dependence; Z87.440 Personal history of urinary (tract) infections; N18.9 Chronic kidney disease, unspecified; F48.2 Pseudobulbar affect; Z83.1 Family history of other infectious and parasitic diseases; G25.81 Restless legs syndrome; R73.9 Hyperglycemia, unspecified; Z22.322 Carrier or suspected carrier of Methicillin resistant Staphylococcus aureus; M10.9 Gout, unspecified; M81.0 Age-related osteoporosis without current pathological fracture; Z79.01 Long term (current) use of anticoagulants; Z93.1 Gastrostomy status; Z87.11 Personal history of peptic ulcer disease; Z93.0 Tracheostomy status
CPT/HCPCS: 31720; 36410; 36415; 36569; 36600; 71045-TC; 74018; 80048-TC; 80053-TC; 80076-TC; 80202-TC; 81000-TC; 82728-TC; 82803-TC; 82962-TC; 83540-TC; 83605-TC; 83735-TC; 84100-TC; 84132-TC; 84439-TC; 84443-TC; 84484-TC; 85025-TC; 85730-TC; 87040-TC; 87070-TC; 87081-TC; 87086-TC; 87186-TC; 92611-TC; 93307-TC; 94002-TC; 94003-TC; 94760-TC; 94762-TC; A4216; A4623; A7526; C1751; C9113; G0378; J0692; J1815; J2405; J2543; J2930; J3370; J3480; J7030; J7050; J7060; L8501; Q0163

== ENCOUNTER 2023-09-02 16:42 | Inpatient (IN) | payer MEDICARE, OTHER ==
[~2023-09-02] VITALS: Ht 160 cm; Wt 73.9 kg
[2023-09-02] MEDS ORDERED: ASCO-352 GT (17:27)
[2023-09-02] MEDS ORDERED: DILT30TA14 GT ×2 (17:27)
[2023-09-02] MEDS ORDERED: MIRT7.5T10 GT (17:27)
[2023-09-02] MEDS ORDERED: CRAN425C6 GT (17:27)
[2023-09-02] MEDS ORDERED: METO25TA20 GT (17:27)
[2023-09-02] MEDS ORDERED: CHLO473M5 MM (17:27)
[2023-09-02] MEDS ORDERED: NUTR250L58 GT (17:27)
[2023-09-02] MEDS ORDERED: MULT-447 GT (17:27)
[2023-09-02] MEDS ORDERED: CRAN3875 GT (17:27)
[2023-09-02] MEDS ORDERED: APIX2.5T GT (17:27)
[2023-09-02] MEDS ORDERED: ACET-868 GT (17:27)
[2023-09-02] MEDS ORDERED: DIGO125T GT (17:27)
[2023-09-02] MEDS ORDERED: LEVE100S GT (17:27)
[2023-09-02] MEDS ORDERED: LANS30CA56 GT (17:27)
[2023-09-02] MEDS ORDERED: ZINC56.713 TP (17:27)
[2023-09-02] MEDS ORDERED: SUCR1ORA6 GT (17:30)
[2023-09-02] MEDS ORDERED: IOHEXOL-350 100 ML VIAL IV ONE (17:40)
[2023-09-02] MEDS ORDERED: CT SWABBABLE VALVE TRANS SET 1 EA INFUS.SET MC ONE (17:40)
[2023-09-02] MEDS ORDERED: IV NS 0.9% 250 ML IV ONE (17:40)
[2023-09-02 19:11] LABS: BASOPHILS % (AUTO) 0.1 % (0.0-2.0); EOSINOPHILS % (AUTO) 0.1 % (0.0-6.0); HEMATOCRIT 44 % (33-45); HEMOGLOBIN 13.3 g/dL (11.5-14.8); LYMPHOCYTES # (AUTO) 0.4 K/uL (0.8-4.8); MEAN CORPUSCULAR HEMOGLOBIN 29 PG (26.0-33.0); MEAN CORPUSCULAR HGB CONC 30 g/dl (31.0-36.0); MEAN CORPUSCULAR VOLUME 94 fL (82-100); MONOCYTES # (AUTO) 1.3 K/uL (0.1-1.30); MONOCYTES % (AUTO) 8.8 % (2.0-12.0); PLATELET COUNT (AUTO) 268 K/uL (150-450); RED BLOOD CELL COUNT(AUTO) 4.66 MIL/uL (4.0-5.2); RED CELL DISTRIBUTION WIDTH 17.3 % (11.5-15.0); WHITE BLOOD COUNT (AUTO) 14.7 K/uL (4.3-11.0)
[2023-09-02 19:23] LABS: CALCIUM, SERUM 9.3 mg/dL (8.5-10.1); CARBON DIOXIDE 22 mmol/L (21-32); CHLORIDE 106 mmol/L (98-107); CREATININE 0.8 mg/dL (0.6-1.3); GLUCOSE 97 mg/dL (74-106); SODIUM SERUM 143 mmol/L (136-145); UREA NITROGEN, BLOOD 22 mg/dL (7-18)
[2023-09-02 19:38] LABS: NT-PRO BNP 4816 pg/mL (0-125)
[2023-09-02] MEDS ORDERED: VANCOMYCIN 1 GM in IV D5W 250 ML IV ONE (20:30)
[2023-09-02] MEDS ORDERED: CEFEPIME 2 GM in IV D5W 50 ML IV ONE (20:30)
[2023-09-02] MEDS ORDERED: VANCOMYCIN 1 GM /D5W 250 ML PB IV ONE (20:53)
[2023-09-02 22:20] LABS: ANISOCYTOSIS 1+; BAND % (MANUAL) 4 % (0.0-5.0); LYMPHOCYTES % (MANUAL) 9 % (16-48); MONOCYTES % (MANUAL) 6 % (0-11.0); NEUTROPHILS % (MANUAL) 81 (42-76); OVALOCYTES 1+; PLATELET ESTIMATE ADEQUATE
[2023-09-02] MEDS ORDERED: CEFEPIME 1 GM VIAL ONE (22:49)
[2023-09-03] MEDS ORDERED: ZOLPIDEM TARTRATE 5 MG TABLET PO PRN (00:30)
[2023-09-03] MEDS ORDERED: MAGNESIUM HYDROXIDE 30 ML UDC PO PRN (00:30)
[2023-09-03] MEDS ORDERED: Z GUARD REMEDY 4 OZ OINT TP PRN (00:30)
[2023-09-03] MEDS ORDERED: MAG HYDROX/AL HYDROX/SIMETH 30 ML UDC PO PRN (00:30)
[2023-09-03] MEDS ORDERED: ACETAMINOPHEN 325 MG TABLET PO PRN (00:30)
[2023-09-03] MEDS ORDERED: IOHEXOL-350 100 ML VIAL IV ONE (00:51)
[2023-09-03] MEDS ORDERED: IV NS 0.9% 250 ML IV ONE (00:51)
[2023-09-03] MEDS ORDERED: CT SWABBABLE VALVE TRANS SET 1 EA INFUS.SET MC ONE (00:51)
[2023-09-03] MEDS ORDERED: MAGNESIUM HYDROXIDE 30 ML UDC GT PRN (00:55)
[2023-09-03] MEDS ORDERED: ZOLPIDEM TARTRATE 5 MG TABLET GT PRN (00:57)
[2023-09-03] MEDS ORDERED: DEXTROSE 50%-WATER 50 ML DISP.SYRIN IV PRN (01:00)
[2023-09-03] MEDS ORDERED: LORAZEPAM 1 MG TABLET GT PRN (01:00)
[2023-09-03] MEDS: ALBUTEROL FS 2.5 MG/0.5 ML VIAL.NEB NEB SCH ×4 (01:30→19:52)
[2023-09-03] MEDS: IPRATROPIUM NEB FS 0.5 MG/2.5 ML AMPUL.NEB NEB SCH ×4 (01:30→19:52)
[2023-09-03 02:00] VITALS: BP 148/94; TEMP 97.5
[2023-09-03 04:00] VITALS: BP 145/98; TEMP 98; O2SAT 95
[2023-09-03] MEDS: LEVOTHYROXINE SODIUM 25 MCG TABLET GT SCH (06:08)
[2023-09-03] MEDS: DILTIAZEM HCL 30 MG TABLET GT SCH ×3 (06:09→17:32)
[2023-09-03] MEDS: BLOOD SUGAR DIAGNOSTIC 1 EACH STRIP IN SCH ×4 (07:59→22:12)
[2023-09-03 08:00] VITALS: BP 139/112; TEMP 97.4; O2SAT 100
[2023-09-03 08:14] LABS: BASOPHILS % (AUTO) 0.6 % (0.0-2.0); EOSINOPHILS % (AUTO) 0.5 % (0.0-6.0); HEMATOCRIT 40 % (33-45); HEMOGLOBIN 12.4 g/dL (11.5-14.8); LYMPHOCYTES # (AUTO) 0.8 K/uL (0.8-4.8); LYMPHOCYTES % (AUTO) 9.7 % (20.0-44.0); MEAN CORPUSCULAR HEMOGLOBIN 29 PG (26.0-33.0); MEAN CORPUSCULAR HGB CONC 31 g/dl (31.0-36.0); MEAN CORPUSCULAR VOLUME 94 fL (82-100); MONOCYTES # (AUTO) 0.9 K/uL (0.1-1.30); NEUTROPHILS # (AUTO) 6.1 K/uL (1.8-8.9); NEUTROPHILS % (AUTO) 77.2 % (43.0-81.0); PLATELET COUNT (AUTO) 227 K/uL (150-450); RED BLOOD CELL COUNT(AUTO) 4.27 MIL/uL (4.0-5.2); RED CELL DISTRIBUTION WIDTH 17.2 % (11.5-15.0); WHITE BLOOD COUNT (AUTO) 7.9 K/uL (4.3-11.0)
[2023-09-03] MEDS ORDERED: Medication Not On Formulary EA (Cranberry Extract (Cranberry) 425 MG) GT SCH (09:00)
[2023-09-03] MEDS ORDERED: PANTOPRAZOLE 40 MG VIAL IV SCH (09:00)
[2023-09-03] MEDS ORDERED: Medication Not On Formulary EA (Cran/Vitc/Mannose/Inulin/Brom (Uti-Stat Liquid) 3,875 MG GT SCH (09:00)
[2023-09-03] MEDS ORDERED: APIXABAN 2.5 MG TABLET GT SCH (09:00)
[2023-09-03] MEDS ORDERED: Medication Not On Formulary EA (Lansoprazole 30 MG) GT SCH (09:00)
[2023-09-03 09:21] LABS: CALCIUM, SERUM 8.6 mg/dL (8.5-10.1); CARBON DIOXIDE 26 mmol/L (21-32); CHLORIDE 104 mmol/L (98-107); CREATININE 0.7 mg/dL (0.6-1.3); GLUCOSE 99 mg/dL (74-106); MAGNESIUM 2.3 mg/dL (1.8-2.4); PHOSPHORUS 4.1 mg/dL (2.5-4.9); POTASSIUM 4.2 mmol/L (3.5-5.1); SODIUM SERUM 141 mmol/L (136-145); UREA NITROGEN, BLOOD 23 mg/dL (7-18)
[2023-09-03 10:11] LABS: THYROID STIMULATING HORMONE 0.837 uIU/mL (0.358-3.74)
[2023-09-03] MEDS: CEFEPIME 2 GM in IV D5W 100 ML IV SCH ×2 (10:22→21:20)
[2023-09-03] MEDS: CHLORHEXIDINE GLUCONATE 15 ML UDC MM SCH ×2 (10:23→21:20)
[2023-09-03] MEDS: ASCORBIC ACID 500 MG TABLET GT SCH (10:23)
[2023-09-03] MEDS: LEVETIRACETAM SOL (5 ML) 100 MG/ML UDC GT SCH ×2 (10:23→21:20)
[2023-09-03] MEDS: DOCUSATE SODIUM LIQ 100 MG/10 ML UDC GT SCH (10:23)
[2023-09-03] MEDS: MULTIVITAMINS,THERAGRAN 1 UDTAB TABLET GT SCH (10:24)
[2023-09-03] MEDS: METOPROLOL TARTRATE 50 MG TABLET GT SCH ×2 (10:25→21:20)
[2023-09-03] MEDS: VANCOMYCIN HCL 0.75 GM in IV D5W 250 ML IV SCH ×2 (10:26→22:13)
[2023-09-03] MEDS: LamoTRIgine 100 MG TABLET GT SCH (10:28)
[2023-09-03] MEDS: IV NS 0.9% 250 ML IV PRN (10:39)
[2023-09-03 12:00] VITALS: BP 140/98; TEMP 97.7; O2SAT 98
[2023-09-03] MEDS: DIGOXIN 0.125 MG TABLET GT SCH (12:21)
[2023-09-03] MEDS: VITAL AF 1.2 1,000 ML BOTTLE GT PRN (12:21)
[2023-09-03] MEDS: ONDANSETRON HCL/PF 4 MG/2 ML VIAL IVP PRN (15:43)
[2023-09-03 16:00] VITALS: BP 132/89; TEMP 97.8; O2SAT 98
[2023-09-03] MEDS ORDERED: CLONIDINE HCL 0.1 MG TABLET PO PRN (16:00)
[2023-09-03] MEDS: ENOXAPARIN SODIUM 80 MG/0.8 ML DISP.SYRIN SQ SCH (17:31)
[2023-09-03 20:00] VITALS: BP 134/85; TEMP 98.4; O2SAT 94
[2023-09-03] MEDS: MIRTAZAPINE 15 MG TABLET GT SCH (21:20)
[2023-09-03] MEDS: INSULIN REGULAR, HUMAN 100 UNIT/ML 3 ML VIAL SQ PRN (22:21)
[2023-09-04] VITALS: BP 128/92; TEMP 97.7; O2SAT 97
[2023-09-04] MEDS: DILTIAZEM HCL 30 MG TABLET GT SCH ×4 (00:26→17:05)
[2023-09-04] MEDS: ALBUTEROL FS 2.5 MG/0.5 ML VIAL.NEB NEB SCH ×4 (01:39→20:05)
[2023-09-04] MEDS: IPRATROPIUM NEB FS 0.5 MG/2.5 ML AMPUL.NEB NEB SCH ×4 (01:39→20:05)
[2023-09-04 04:00] VITALS: BP 120/75; TEMP 97.7; O2SAT 98
[2023-09-04] MEDS: LEVOTHYROXINE SODIUM 25 MCG TABLET GT SCH (06:00)
[2023-09-04 08:00] VITALS: BP 115/73; TEMP 97.9; O2SAT 100
[2023-09-04] MEDS: BLOOD SUGAR DIAGNOSTIC 1 EACH STRIP IN SCH ×4 (08:09→22:29)
[2023-09-04] MEDS: INSULIN REGULAR, HUMAN 100 UNIT/ML 3 ML VIAL SQ PRN ×2 (08:10→11:25)
[2023-09-04] MEDS: CHLORHEXIDINE GLUCONATE 15 ML UDC MM SCH ×2 (08:51→21:32)
[2023-09-04] MEDS: PANTOPRAZOLE 40 MG/PACK PACK GT SCH (08:51)
[2023-09-04] MEDS: DOCUSATE SODIUM LIQ 100 MG/10 ML UDC GT SCH (08:51)
[2023-09-04] MEDS: LamoTRIgine 100 MG TABLET GT SCH (08:52)
[2023-09-04] MEDS: METOPROLOL TARTRATE 50 MG TABLET GT SCH ×2 (08:52→21:00)
[2023-09-04] MEDS: MULTIVITAMINS,THERAGRAN 1 UDTAB TABLET GT SCH (08:52)
[2023-09-04] MEDS: ASCORBIC ACID 500 MG TABLET GT SCH (08:52)
[2023-09-04] MEDS: ENOXAPARIN SODIUM 80 MG/0.8 ML DISP.SYRIN SQ SCH ×2 (08:59→17:02)
[2023-09-04] MEDS: LEVETIRACETAM SOL (5 ML) 100 MG/ML UDC GT SCH ×2 (08:59→21:31)
[2023-09-04] MEDS: CEFEPIME 2 GM in IV D5W 100 ML IV SCH ×2 (09:00→21:31)
[2023-09-04] MEDS: VANCOMYCIN HCL 0.75 GM in IV D5W 250 ML IV SCH ×2 (10:08→22:00)
[2023-09-04 12:29] VITALS: BP 95/60; TEMP 99; O2SAT 100
[2023-09-04] MEDS: DIGOXIN 0.125 MG TABLET GT SCH (12:35)
[2023-09-04 13:17] LABS: BASOPHILS # (AUTO) 0.1 K/uL (0.0-0.2); BASOPHILS % (AUTO) 0.6 % (0.0-2.0); EOSINOPHILS # (AUTO) 0.1 K/uL (0.0-0.7); EOSINOPHILS % (AUTO) 0.9 % (0.0-6.0); HEMATOCRIT 36 % (33-45); HEMOGLOBIN 11.4 g/dL (11.5-14.8); LYMPHOCYTES # (AUTO) 0.6 K/uL (0.8-4.8); LYMPHOCYTES % (AUTO) 7.2 % (20.0-44.0); MEAN CORPUSCULAR HEMOGLOBIN 29 PG (26.0-33.0); MEAN CORPUSCULAR HGB CONC 32 g/dl (31.0-36.0); MEAN CORPUSCULAR VOLUME 92 fL (82-100); MONOCYTES # (AUTO) 0.8 K/uL (0.1-1.30); MONOCYTES % (AUTO) 10.4 % (2.0-12.0); NEUTROPHILS # (AUTO) 6.5 K/uL (1.8-8.9); NEUTROPHILS % (AUTO) 80.9 % (43.0-81.0); PLATELET COUNT (AUTO) 192 K/uL (150-450); RED CELL DISTRIBUTION WIDTH 17.4 % (11.5-15.0); WHITE BLOOD COUNT (AUTO) 8.1 K/uL (4.3-11.0)
[2023-09-04 13:47] LABS: CALCIUM, SERUM 8.6 mg/dL (8.5-10.1); CREATININE 0.7 mg/dL (0.6-1.3); MAGNESIUM 2.3 mg/dL (1.8-2.4); PHOSPHORUS 3.9 mg/dL (2.5-4.9); POTASSIUM 3.5 mmol/L (3.5-5.1)
[2023-09-04 17:19] VITALS: BP 142/96; TEMP 98.1; O2SAT 100
[2023-09-04 20:00] VITALS: BP 93/73; TEMP 97.9; O2SAT 100
[2023-09-04] MEDS: MIRTAZAPINE 15 MG TABLET GT SCH (21:31)
[2023-09-05] VITALS: BP 125/76; TEMP 98.4; O2SAT 100
[2023-09-05] MEDS: DILTIAZEM HCL 30 MG TABLET GT SCH ×4 (00:23→17:27)
[2023-09-05] MEDS: ALBUTEROL FS 2.5 MG/0.5 ML VIAL.NEB NEB SCH ×4 (02:04→20:05)
[2023-09-05] MEDS: IPRATROPIUM NEB FS 0.5 MG/2.5 ML AMPUL.NEB NEB SCH ×4 (02:04→20:05)
[2023-09-05 04:00] VITALS: BP 130/76; TEMP 98.6; O2SAT 100
[2023-09-05] MEDS: VITAL AF 1.2 1,000 ML BOTTLE GT PRN (05:54)
[2023-09-05 08:00] VITALS: BP 143/109; TEMP 98.2; O2SAT 100
[2023-09-05 08:02] LABS: BASOPHILS % (AUTO) 0.5 % (0.0-2.0); EOSINOPHILS # (AUTO) 0.1 K/uL (0.0-0.7); EOSINOPHILS % (AUTO) 1.1 % (0.0-6.0); HEMATOCRIT 42 % (33-45); HEMOGLOBIN 12.8 g/dL (11.5-14.8); LYMPHOCYTES # (AUTO) 0.7 K/uL (0.8-4.8); LYMPHOCYTES % (AUTO) 7.9 % (20.0-44.0); MEAN CORPUSCULAR HEMOGLOBIN 30 PG (26.0-33.0); MEAN CORPUSCULAR HGB CONC 31 g/dl (31.0-36.0); MEAN CORPUSCULAR VOLUME 95 fL (82-100); MONOCYTES % (AUTO) 11.4 % (2.0-12.0); NEUTROPHILS # (AUTO) 6.9 K/uL (1.8-8.9); NEUTROPHILS % (AUTO) 79.1 % (43.0-81.0); PLATELET COUNT (AUTO) 212 K/uL (150-450); RED BLOOD CELL COUNT(AUTO) 4.35 MIL/uL (4.0-5.2); RED CELL DISTRIBUTION WIDTH 17.8 % (11.5-15.0); WHITE BLOOD COUNT (AUTO) 8.7 K/uL (4.3-11.0)
[2023-09-05] MEDS: BLOOD SUGAR DIAGNOSTIC 1 EACH STRIP IN SCH ×4 (08:09→22:38)
[2023-09-05] MEDS: CHLORHEXIDINE GLUCONATE 15 ML UDC MM SCH ×2 (08:15→21:06)
[2023-09-05] MEDS: DOCUSATE SODIUM LIQ 100 MG/10 ML UDC GT SCH (08:15)
[2023-09-05] MEDS: LEVETIRACETAM SOL (5 ML) 100 MG/ML UDC GT SCH ×2 (08:15→21:06)
[2023-09-05] MEDS: ASCORBIC ACID 500 MG TABLET GT SCH (08:15)
[2023-09-05] MEDS: MULTIVITAMINS,THERAGRAN 1 UDTAB TABLET GT SCH (08:15)
[2023-09-05] MEDS: ACETAMINOPHEN 650 MG/20.3 ML UDC GT PRN (08:15)
[2023-09-05] MEDS: LamoTRIgine 100 MG TABLET GT SCH (08:16)
[2023-09-05] MEDS: METOPROLOL TARTRATE 50 MG TABLET GT SCH ×2 (08:16→21:07)
[2023-09-05] MEDS: PANTOPRAZOLE 40 MG/PACK PACK GT SCH (08:16)
[2023-09-05] MEDS: LEVOTHYROXINE SODIUM 25 MCG TABLET GT SCH (08:16)
[2023-09-05 08:24] LABS: CALCIUM, SERUM 9.5 mg/dL (8.5-10.1); CREATININE 0.6 mg/dL (0.6-1.3); MAGNESIUM 2.3 mg/dL (1.8-2.4); PHOSPHORUS 3.3 mg/dL (2.5-4.9); POTASSIUM 3.8 mmol/L (3.5-5.1)
[2023-09-05] MEDS: CEFEPIME 2 GM in IV D5W 100 ML IV SCH ×2 (09:28→21:06)
[2023-09-05] MEDS: ENOXAPARIN SODIUM 80 MG/0.8 ML DISP.SYRIN SQ SCH (09:30)
[2023-09-05] MEDS: LORAZEPAM INJ 2 MG/ML VIAL IV PRN (09:56)
[2023-09-05] MEDS: VANCOMYCIN HCL 0.75 GM in IV D5W 250 ML IV SCH (09:59)
[2023-09-05 12:00] VITALS: BP 128/93; TEMP 98.2; O2SAT 100
[2023-09-05] MEDS: DIGOXIN 0.125 MG TABLET GT SCH (12:46)
[2023-09-05 16:00] VITALS: BP 112/88; TEMP 99.7; O2SAT 100
[2023-09-05] MEDS: APIXABAN 2.5 MG TABLET PO SCH (17:25)
[2023-09-05] MEDS: INSULIN REGULAR, HUMAN 100 UNIT/ML 3 ML VIAL SQ PRN ×2 (17:39→22:38)
[2023-09-05 20:00] VITALS: BP 121/68; TEMP 98.6; O2SAT 95
[2023-09-05] MEDS: IV NS 0.9% 250 ML IV PRN (21:02)
[2023-09-05] MEDS: MIRTAZAPINE 15 MG TABLET GT SCH (21:07)
[2023-09-06] VITALS: BP 139/93; TEMP 98.6; O2SAT 95
[2023-09-06] MEDS: DILTIAZEM HCL 30 MG TABLET GT SCH ×5 (00:40→23:46)
[2023-09-06] MEDS: LORAZEPAM INJ 2 MG/ML VIAL IV PRN ×3 (01:48→15:53)
[2023-09-06] MEDS: IPRATROPIUM NEB FS 0.5 MG/2.5 ML AMPUL.NEB NEB SCH ×4 (02:31→20:17)
[2023-09-06] MEDS: ALBUTEROL FS 2.5 MG/0.5 ML VIAL.NEB NEB SCH ×4 (02:31→20:17)
[2023-09-06] MEDS: VANCOMYCIN HCL 0.75 GM in IV D5W 250 ML IV SCH ×2 (03:50→21:42)
[2023-09-06 04:00] VITALS: BP 179/109; TEMP 98.6; O2SAT 94
[2023-09-06] MEDS: CLONIDINE HCL 0.1 MG TABLET GT PRN (04:37)
[2023-09-06] MEDS: LEVOTHYROXINE SODIUM 25 MCG TABLET GT SCH (06:06)
[2023-09-06 07:22] LABS: BASOPHILS % (AUTO) 0.5 % (0.0-2.0); EOSINOPHILS # (AUTO) 0.1 K/uL (0.0-0.7); EOSINOPHILS % (AUTO) 1.8 % (0.0-6.0); HEMATOCRIT 37 % (33-45); HEMOGLOBIN 11.6 g/dL (11.5-14.8); LYMPHOCYTES # (AUTO) 0.7 K/uL (0.8-4.8); LYMPHOCYTES % (AUTO) 8.4 % (20.0-44.0); MEAN CORPUSCULAR HEMOGLOBIN 29 PG (26.0-33.0); MEAN CORPUSCULAR HGB CONC 31 g/dl (31.0-36.0); MEAN CORPUSCULAR VOLUME 93 fL (82-100); MONOCYTES # (AUTO) 0.8 K/uL (0.1-1.30); MONOCYTES % (AUTO) 10.3 % (2.0-12.0); NEUTROPHILS # (AUTO) 6.1 K/uL (1.8-8.9); PLATELET COUNT (AUTO) 236 K/uL (150-450); RED BLOOD CELL COUNT(AUTO) 3.99 MIL/uL (4.0-5.2); RED CELL DISTRIBUTION WIDTH 17.2 % (11.5-15.0); WHITE BLOOD COUNT (AUTO) 7.8 K/uL (4.3-11.0)
[2023-09-06 07:52] LABS: CALCIUM, SERUM 9.2 mg/dL (8.5-10.1); CARBON DIOXIDE 30 mmol/L (21-32); CHLORIDE 106 mmol/L (98-107); CREATININE 0.6 mg/dL (0.6-1.3); GLUCOSE 135 mg/dL (74-106); MAGNESIUM 2.2 mg/dL (1.8-2.4); PHOSPHORUS 3.3 mg/dL (2.5-4.9); POTASSIUM 3.5 mmol/L (3.5-5.1); SODIUM SERUM 143 mmol/L (136-145); UREA NITROGEN, BLOOD 19 mg/dL (7-18)
[2023-09-06 08:00] VITALS: BP_SYST 155; BP_SYST 93; BP_DIAS 111; BP_DIAS 63; TEMP 97.9; TEMP 99; O2SAT 96; O2SAT 99
[2023-09-06] MEDS: CHLORHEXIDINE GLUCONATE 15 ML UDC MM SCH ×2 (08:18→20:47)
[2023-09-06] MEDS: LEVETIRACETAM SOL (5 ML) 100 MG/ML UDC GT SCH ×2 (08:18→20:47)
[2023-09-06] MEDS: DOCUSATE SODIUM LIQ 100 MG/10 ML UDC GT SCH (08:18)
[2023-09-06] MEDS: LamoTRIgine 100 MG TABLET GT SCH (08:20)
[2023-09-06] MEDS: METOPROLOL TARTRATE 50 MG TABLET GT SCH ×2 (08:20→21:24)
[2023-09-06] MEDS: PANTOPRAZOLE 40 MG/PACK PACK GT SCH (08:20)
[2023-09-06] MEDS: MULTIVITAMINS,THERAGRAN 1 UDTAB TABLET GT SCH (08:21)
[2023-09-06] MEDS: APIXABAN 2.5 MG TABLET PO SCH ×2 (08:22→17:39)
[2023-09-06] MEDS: ASCORBIC ACID 500 MG TABLET GT SCH (08:23)
[2023-09-06] MEDS: CEFEPIME 2 GM in IV D5W 100 ML IV SCH ×2 (08:26→20:47)
[2023-09-06] MEDS: BLOOD SUGAR DIAGNOSTIC 1 EACH STRIP IN SCH ×4 (09:12→21:35)
[2023-09-06] MEDS: INSULIN REGULAR, HUMAN 100 UNIT/ML 3 ML VIAL SQ PRN ×4 (09:17→21:39)
[2023-09-06] MEDS: VITAL AF 1.2 1,000 ML BOTTLE GT PRN ×2 (10:11→10:19)
[2023-09-06 12:00] VITALS: BP 93/63; TEMP 99; O2SAT 99
[2023-09-06] MEDS: DIGOXIN 0.125 MG TABLET GT SCH (13:25)
[2023-09-06 16:00] VITALS: BP 140/123; TEMP 98.7; O2SAT 99
[2023-09-06] MEDS: GLUCERNA 1.2 1,000 ML BOTTLE NG PRN (17:27)
[2023-09-06 20:00] VITALS: BP 122/85; TEMP 98.6; O2SAT 99
[2023-09-06] MEDS: MUPIROCIN OINT 2% 22 GM TUBE NS SCH (20:44)
[2023-09-06] MEDS: MIRTAZAPINE 15 MG TABLET GT SCH (21:24)
[2023-09-07] VITALS: BP 130/78; TEMP 98.6; O2SAT 98
[2023-09-07] MEDS: ALBUTEROL FS 2.5 MG/0.5 ML VIAL.NEB NEB SCH ×4 (02:04→19:30)
[2023-09-07] MEDS: IPRATROPIUM NEB FS 0.5 MG/2.5 ML AMPUL.NEB NEB SCH ×4 (02:04→19:30)
[2023-09-07 04:00] VITALS: BP 122/67; TEMP 97.7; O2SAT 97
[2023-09-07] MEDS: DILTIAZEM HCL 30 MG TABLET GT SCH ×3 (05:54→17:16)
[2023-09-07] MEDS: LEVOTHYROXINE SODIUM 25 MCG TABLET GT SCH (06:02)
[2023-09-07 06:28] LABS: CALCIUM, SERUM 9.2 mg/dL (8.5-10.1); CARBON DIOXIDE 32 mmol/L (21-32); CHLORIDE 104 mmol/L (98-107); CREATININE 0.7 mg/dL (0.6-1.3); GLUCOSE 104 mg/dL (74-106); POTASSIUM 3.2 mmol/L (3.5-5.1); SODIUM SERUM 144 mmol/L (136-145); UREA NITROGEN, BLOOD 25 mg/dL (7-18)
[2023-09-07 08:00] VITALS: BP 160/113; TEMP 98.4; O2SAT 97
[2023-09-07] MEDS: LORAZEPAM INJ 2 MG/ML VIAL IV PRN ×3 (08:08→23:18)
[2023-09-07] MEDS: ASCORBIC ACID 500 MG TABLET GT SCH (08:10)
[2023-09-07] MEDS: CHLORHEXIDINE GLUCONATE 15 ML UDC MM SCH ×2 (08:10→20:16)
[2023-09-07] MEDS: LamoTRIgine 100 MG TABLET GT SCH (08:10)
[2023-09-07] MEDS: MULTIVITAMINS,THERAGRAN 1 UDTAB TABLET GT SCH (08:10)
[2023-09-07] MEDS: LEVETIRACETAM SOL (5 ML) 100 MG/ML UDC GT SCH ×2 (08:10→20:16)
[2023-09-07] MEDS: PANTOPRAZOLE 40 MG/PACK PACK GT SCH (08:10)
[2023-09-07] MEDS: DOCUSATE SODIUM LIQ 100 MG/10 ML UDC GT SCH (08:10)
[2023-09-07] MEDS: APIXABAN 2.5 MG TABLET PO SCH ×2 (08:12→17:17)
[2023-09-07] MEDS: CEFEPIME 2 GM in IV D5W 100 ML IV SCH ×2 (08:15→20:16)
[2023-09-07] MEDS: METOPROLOL TARTRATE 50 MG TABLET GT SCH ×2 (08:19→20:17)
[2023-09-07] MEDS: INSULIN REGULAR, HUMAN 100 UNIT/ML 3 ML VIAL SQ PRN ×4 (09:00→22:21)
[2023-09-07] MEDS: BLOOD SUGAR DIAGNOSTIC 1 EACH STRIP IN SCH ×4 (09:02→22:20)
[2023-09-07] MEDS: MUPIROCIN OINT 2% 22 GM TUBE NS SCH ×2 (09:49→20:22)
[2023-09-07] MEDS ORDERED: POTASSIUM CHLORIDE 20 MEQ TAB.PRT.SR PO ONE ×3 (10:00)
[2023-09-07 12:00] VITALS: BP 152/127; TEMP 97.9; O2SAT 97
[2023-09-07] MEDS: DIGOXIN 0.125 MG TABLET GT SCH (13:50)
[2023-09-07 16:00] VITALS: BP 154/115; TEMP 99.7; O2SAT 91
[2023-09-07] MEDS: VANCOMYCIN HCL 0.75 GM in IV D5W 250 ML IV SCH (17:47)
[2023-09-07] MEDS: GLUCERNA 1.2 1,000 ML BOTTLE NG PRN (19:34)
[2023-09-07 20:00] VITALS: BP 169/100; TEMP 97.9; O2SAT 100
[2023-09-07] MEDS: MIRTAZAPINE 15 MG TABLET GT SCH (21:22)
[2023-09-08] VITALS (17 sets, daily range): BP systolic 82–168; BP diastolic 49–138; TEMP 97.1–98.6; O2SAT 88–100
[2023-09-08] MEDS: DILTIAZEM HCL 30 MG TABLET GT SCH ×5 (00:37→23:25)
[2023-09-08] MEDS: IV NS 0.9% 250 ML IV PRN (01:32)
[2023-09-08] MEDS: IPRATROPIUM NEB FS 0.5 MG/2.5 ML AMPUL.NEB NEB SCH ×4 (01:48→19:42)
[2023-09-08] MEDS: ALBUTEROL FS 2.5 MG/0.5 ML VIAL.NEB NEB SCH ×4 (01:48→19:42)
[2023-09-08] MEDS: LORAZEPAM INJ 2 MG/ML VIAL IV PRN ×2 (05:28→13:33)
[2023-09-08] MEDS: LEVOTHYROXINE SODIUM 25 MCG TABLET GT SCH (07:11)
[2023-09-08 07:34] LABS: CALCIUM, SERUM 9.8 mg/dL (8.5-10.1); CARBON DIOXIDE 33 mmol/L (21-32); CHLORIDE 102 mmol/L (98-107); CREATININE 0.7 mg/dL (0.6-1.3); GLUCOSE 129 mg/dL (74-106); POTASSIUM 4.2 mmol/L (3.5-5.1); SODIUM SERUM 142 mmol/L (136-145); UREA NITROGEN, BLOOD 29 mg/dL (7-18)
[2023-09-08] MEDS: BLOOD SUGAR DIAGNOSTIC 1 EACH STRIP IN SCH ×4 (07:43→21:05)
[2023-09-08] MEDS: INSULIN REGULAR, HUMAN 100 UNIT/ML 3 ML VIAL SQ PRN ×4 (07:50→21:47)
[2023-09-08] MEDS: CEFEPIME 2 GM in IV D5W 100 ML IV SCH ×2 (08:36→20:30)
[2023-09-08] MEDS: LEVETIRACETAM SOL (5 ML) 100 MG/ML UDC GT SCH ×2 (08:37→20:30)
[2023-09-08] MEDS: CHLORHEXIDINE GLUCONATE 15 ML UDC MM SCH ×2 (08:37→20:30)
[2023-09-08] MEDS: LamoTRIgine 100 MG TABLET GT SCH (08:38)
[2023-09-08] MEDS: PANTOPRAZOLE 40 MG/PACK PACK GT SCH (08:38)
[2023-09-08] MEDS: MULTIVITAMINS,THERAGRAN 1 UDTAB TABLET GT SCH (08:38)
[2023-09-08] MEDS: DOCUSATE SODIUM LIQ 100 MG/10 ML UDC GT SCH (08:38)
[2023-09-08] MEDS: METOPROLOL TARTRATE 50 MG TABLET GT SCH ×2 (08:39→20:35)
[2023-09-08] MEDS: ASCORBIC ACID 500 MG TABLET GT SCH (08:39)
[2023-09-08] MEDS: ACETAMINOPHEN 650 MG/20.3 ML UDC GT PRN (08:41)
[2023-09-08] MEDS: CLONIDINE HCL 0.1 MG TABLET GT PRN (08:42)
[2023-09-08] MEDS: MUPIROCIN OINT 2% 22 GM TUBE NS SCH ×2 (08:50→20:33)
[2023-09-08] MEDS: APIXABAN 2.5 MG TABLET PO SCH ×2 (08:51→17:16)
[2023-09-08] MEDS: VANCOMYCIN HCL 0.75 GM in IV D5W 250 ML IV SCH (10:17)
[2023-09-08 12:48] LABS: ABG BASE EXCESS 0.4 mmol/L; ABG PCO2 61.5 mmHg (35.0-45.0); ABG PH 7.283 (7.350-7.450); ABG PO2 101.7 mmHg (75.0-100.0); ABG TOTAL HEMOGLOBIN 13.5 G/dL (12.0-16.0); AaDO2 185.6 mmHg; COHb 1.4 % (0.5-1.5); MetHb 0.3 % (0.0-1.5); O2Hb 95.4 % (94.0-97.0); PEEP,BG 5 cm H2O; SITE, ABG Left Radial; VT, ABG 450 mL
[2023-09-08] MEDS: DIGOXIN 0.125 MG TABLET GT SCH (13:13)
[2023-09-08] MEDS ORDERED: LORAZEPAM INJ 2 MG/ML VIAL IVP PRN (14:00)
[2023-09-08] MEDS: methylPREDNISolone SOD SUCC 125 MG/2ML VIAL IV SCH ×2 (14:08→17:10)
[2023-09-08] MEDS: GLUCERNA 1.2 1,000 ML BOTTLE NG PRN (15:26)
[2023-09-08 17:39] LABS: ABG BASE EXCESS 3.9 mmol/L; ABG OXYGEN SATURATION 99.4 % (92.0-98.5); ABG PCO2 36.7 mmHg (35.0-45.0); ABG PH 7.489 (7.350-7.450); ABG PO2 160.8 mmHg (75.0-100.0); ABG TOTAL HEMOGLOBIN 12.4 G/dL (12.0-16.0); AaDO2 154.4 mmHg; COHb 1.1 % (0.5-1.5); MetHb 0.3 % (0.0-1.5); SITE, ABG Right Radial; VENT MODE, BG AC 22 500 40
[2023-09-08] MEDS: MIRTAZAPINE 15 MG TABLET GT SCH (21:05)
[2023-09-09] VITALS (18 sets, daily range): BP systolic 13–148; BP diastolic 60–121; TEMP 97.3–98.1; O2SAT 94–100
[2023-09-09] MEDS: IPRATROPIUM NEB FS 0.5 MG/2.5 ML AMPUL.NEB NEB SCH ×4 (01:24→20:25)
[2023-09-09] MEDS: ALBUTEROL FS 2.5 MG/0.5 ML VIAL.NEB NEB SCH ×4 (01:24→20:25)
[2023-09-09] MEDS: VANCOMYCIN HCL 0.75 GM in IV D5W 250 ML IV SCH ×3 (04:42→23:00)
[2023-09-09 05:00] LABS: CALCIUM, SERUM 9.6 mg/dL (8.5-10.1); CARBON DIOXIDE 31 mmol/L (21-32); CHLORIDE 103 mmol/L (98-107); CREATININE 0.7 mg/dL (0.6-1.3); GLUCOSE 139 mg/dL (74-106); POTASSIUM 4.4 mmol/L (3.5-5.1); SODIUM SERUM 141 mmol/L (136-145); UREA NITROGEN, BLOOD 31 mg/dL (7-18)
[2023-09-09] MEDS: LEVOTHYROXINE SODIUM 25 MCG TABLET GT SCH (06:19)
[2023-09-09] MEDS: DILTIAZEM HCL 30 MG TABLET GT SCH ×5 (06:20→23:56)
[2023-09-09] MEDS: BLOOD SUGAR DIAGNOSTIC 1 EACH STRIP IN SCH ×3 (06:46→16:57)
[2023-09-09] MEDS: INSULIN REGULAR, HUMAN 100 UNIT/ML 3 ML VIAL SQ PRN ×3 (06:54→16:53)
[2023-09-09] MEDS: METOPROLOL TARTRATE 50 MG TABLET GT SCH ×3 (08:51→21:17)
[2023-09-09] MEDS: MULTIVITAMINS,THERAGRAN 1 UDTAB TABLET GT SCH (08:58)
[2023-09-09] MEDS: CHLORHEXIDINE GLUCONATE 15 ML UDC MM SCH ×2 (08:58→21:18)
[2023-09-09] MEDS: DOCUSATE SODIUM LIQ 100 MG/10 ML UDC GT SCH (08:58)
[2023-09-09] MEDS: PANTOPRAZOLE 40 MG/PACK PACK GT SCH (08:58)
[2023-09-09] MEDS: ASCORBIC ACID 500 MG TABLET GT SCH (08:58)
[2023-09-09] MEDS: LEVETIRACETAM SOL (5 ML) 100 MG/ML UDC GT SCH ×2 (08:58→21:18)
[2023-09-09] MEDS: methylPREDNISolone SOD SUCC 125 MG/2ML VIAL IV SCH ×2 (08:58→16:51)
[2023-09-09] MEDS: CEFEPIME 2 GM in IV D5W 100 ML IV SCH ×2 (08:59→21:19)
[2023-09-09] MEDS: MUPIROCIN OINT 2% 22 GM TUBE NS SCH ×2 (09:00→21:48)
[2023-09-09] MEDS: LamoTRIgine 100 MG TABLET GT SCH (09:00)
[2023-09-09] MEDS: APIXABAN 2.5 MG TABLET PO SCH ×2 (09:51→16:53)
[2023-09-09] MEDS: ACETAMINOPHEN 650 MG/20.3 ML UDC GT PRN (10:57)
[2023-09-09] MEDS: LORAZEPAM INJ 2 MG/ML VIAL IV PRN ×2 (12:57→23:56)
[2023-09-09] MEDS: DIGOXIN 0.125 MG TABLET GT SCH (12:58)
[2023-09-09] MEDS: GLUCERNA 1.2 1,000 ML BOTTLE NG PRN (16:44)
[2023-09-09] MEDS: MAG HYDROX/AL HYDROX/SIMETH 30 ML UDC GT PRN (18:51)
[2023-09-09] MEDS: MIRTAZAPINE 15 MG TABLET GT SCH (21:17)
[2023-09-09] MEDS: ONDANSETRON HCL/PF 4 MG/2 ML VIAL IVP PRN (22:50)
[2023-09-10] VITALS: BP 122/92; TEMP 97.7; O2SAT 99
[2023-09-10] MEDS: INSULIN REGULAR, HUMAN 100 UNIT/ML 3 ML VIAL SQ PRN ×4 (00:22→23:04)
[2023-09-10] MEDS: BLOOD SUGAR DIAGNOSTIC 1 EACH STRIP IN SCH ×5 (00:23→23:04)
[2023-09-10] MEDS: ALBUTEROL FS 2.5 MG/0.5 ML VIAL.NEB NEB SCH ×4 (02:10→19:52)
[2023-09-10] MEDS: IPRATROPIUM NEB FS 0.5 MG/2.5 ML AMPUL.NEB NEB SCH ×4 (02:10→19:52)
[2023-09-10 04:00] VITALS: BP 148/97; TEMP 98.2; O2SAT 100
[2023-09-10] MEDS: DILTIAZEM HCL 30 MG TABLET GT SCH ×4 (05:53→23:00)
[2023-09-10] MEDS: LEVOTHYROXINE SODIUM 25 MCG TABLET GT SCH (06:01)
[2023-09-10 06:09] LABS: CALCIUM, SERUM 9.1 mg/dL (8.5-10.1); CARBON DIOXIDE 31 mmol/L (21-32); CHLORIDE 101 mmol/L (98-107); CREATININE 0.7 mg/dL (0.6-1.3); GLUCOSE 144 mg/dL (74-106); POTASSIUM 4.7 mmol/L (3.5-5.1); SODIUM SERUM 140 mmol/L (136-145); UREA NITROGEN, BLOOD 26 mg/dL (7-18)
[2023-09-10 08:00] VITALS: BP 143/83; TEMP 97.4; O2SAT 100
[2023-09-10] MEDS: MULTIVITAMINS,THERAGRAN 1 UDTAB TABLET GT SCH (08:10)
[2023-09-10] MEDS: METOPROLOL TARTRATE 50 MG TABLET GT SCH ×2 (08:10→21:26)
[2023-09-10] MEDS: ASCORBIC ACID 500 MG TABLET GT SCH (08:10)
[2023-09-10] MEDS: PANTOPRAZOLE 40 MG/PACK PACK GT SCH (08:10)
[2023-09-10] MEDS: LamoTRIgine 100 MG TABLET GT SCH (08:10)
[2023-09-10] MEDS: LEVETIRACETAM SOL (5 ML) 100 MG/ML UDC GT SCH ×2 (08:11→21:26)
[2023-09-10] MEDS: methylPREDNISolone SOD SUCC 125 MG/2ML VIAL IV SCH ×2 (08:11→17:48)
[2023-09-10] MEDS: CHLORHEXIDINE GLUCONATE 15 ML UDC MM SCH ×2 (08:11→21:26)
[2023-09-10] MEDS: DOCUSATE SODIUM LIQ 100 MG/10 ML UDC GT SCH (08:11)
[2023-09-10] MEDS: APIXABAN 2.5 MG TABLET PO SCH ×2 (08:18→17:50)
[2023-09-10] MEDS: CEFEPIME 2 GM in IV D5W 100 ML IV SCH ×2 (08:20→21:27)
[2023-09-10] MEDS: MUPIROCIN OINT 2% 22 GM TUBE NS SCH ×2 (08:27→21:28)
[2023-09-10 12:00] VITALS: BP 143/83; TEMP 97.8; O2SAT 100
[2023-09-10] MEDS: ACETAMINOPHEN 650 MG/20.3 ML UDC GT PRN (12:08)
[2023-09-10] MEDS: DIGOXIN 0.125 MG TABLET GT SCH (12:22)
[2023-09-10] MEDS: VANCOMYCIN HCL 0.75 GM in IV D5W 250 ML IV SCH (15:11)
[2023-09-10 16:00] VITALS: BP 138/75; TEMP 97.9; O2SAT 100
[2023-09-10] MEDS: GLUCERNA 1.2 1,000 ML BOTTLE NG PRN (17:46)
[2023-09-10 20:00] VITALS: BP 158/85; TEMP 97.8; O2SAT 100
[2023-09-10] MEDS: MIRTAZAPINE 15 MG TABLET GT SCH (21:26)
[2023-09-10] MEDS: MAG HYDROX/AL HYDROX/SIMETH 30 ML UDC GT PRN (23:00)
[2023-09-10] MEDS: ONDANSETRON HCL/PF 4 MG/2 ML VIAL IVP PRN (23:17)
[2023-09-11] VITALS: BP 145/94; TEMP 97.5; O2SAT 100
[2023-09-11] MEDS: ALBUTEROL FS 2.5 MG/0.5 ML VIAL.NEB NEB SCH ×4 (02:16→20:26)
[2023-09-11] MEDS: IPRATROPIUM NEB FS 0.5 MG/2.5 ML AMPUL.NEB NEB SCH ×4 (02:16→20:26)
[2023-09-11 04:00] VITALS: BP 145/88; TEMP 97.5; O2SAT 100
[2023-09-11] MEDS: DILTIAZEM HCL 30 MG TABLET GT SCH ×4 (05:18→23:35)
[2023-09-11] MEDS: BLOOD SUGAR DIAGNOSTIC 1 EACH STRIP IN SCH ×4 (05:25→23:45)
[2023-09-11] MEDS: INSULIN REGULAR, HUMAN 100 UNIT/ML 3 ML VIAL SQ PRN (05:26)
[2023-09-11] MEDS: LEVOTHYROXINE SODIUM 25 MCG TABLET GT SCH (06:02)
[2023-09-11 07:34] LABS: CALCIUM, SERUM 9.1 mg/dL (8.5-10.1); CARBON DIOXIDE 26 mmol/L (21-32); CHLORIDE 101 mmol/L (98-107); CREATININE 0.6 mg/dL (0.6-1.3); GLUCOSE 118 mg/dL (74-106); POTASSIUM 5.4 mmol/L (3.5-5.1); SODIUM SERUM 134 mmol/L (136-145); UREA NITROGEN, BLOOD 30 mg/dL (7-18)
[2023-09-11 08:00] VITALS: BP 188/92; TEMP 97.7; O2SAT 100
[2023-09-11] MEDS: methylPREDNISolone SOD SUCC 125 MG/2ML VIAL IV SCH ×2 (08:45→17:15)
[2023-09-11] MEDS: PROSOURCE / PROSTAT (PYXIS) 30 ML UDC GT SCH (08:45)
[2023-09-11] MEDS: CHLORHEXIDINE GLUCONATE 15 ML UDC MM SCH ×2 (08:46→21:14)
[2023-09-11] MEDS: DOCUSATE SODIUM LIQ 100 MG/10 ML UDC GT SCH (08:46)
[2023-09-11] MEDS: LEVETIRACETAM SOL (5 ML) 100 MG/ML UDC GT SCH ×2 (08:46→21:14)
[2023-09-11] MEDS: PANTOPRAZOLE 40 MG/PACK PACK GT SCH (08:47)
[2023-09-11] MEDS: LamoTRIgine 100 MG TABLET GT SCH (08:48)
[2023-09-11] MEDS: MULTIVITAMINS,THERAGRAN 1 UDTAB TABLET GT SCH (08:48)
[2023-09-11] MEDS: ASCORBIC ACID 500 MG TABLET GT SCH (08:49)
[2023-09-11] MEDS: METOPROLOL TARTRATE 50 MG TABLET GT SCH ×2 (08:50→21:16)
[2023-09-11] MEDS: MUPIROCIN OINT 2% 22 GM TUBE NS SCH ×2 (08:52→21:17)
[2023-09-11] MEDS: CEFEPIME 2 GM in IV D5W 100 ML IV SCH (08:52)
[2023-09-11] MEDS ORDERED: SODIUM POLYSTYRENE SULF. PWD 15 GM UDC PO ONE (09:00)
[2023-09-11] MEDS: APIXABAN 2.5 MG TABLET PO SCH ×2 (09:01→17:13)
[2023-09-11] MEDS: VANCOMYCIN HCL 0.75 GM in IV D5W 250 ML IV SCH (10:20)
[2023-09-11 12:00] VITALS: BP 135/120; TEMP 97.7; O2SAT 100
[2023-09-11] MEDS: DIGOXIN 0.125 MG TABLET GT SCH (12:12)
[2023-09-11] MEDS: ACETAMINOPHEN 650 MG/20.3 ML UDC GT PRN (14:23)
[2023-09-11 16:00] VITALS: BP 164/108; TEMP 98.8; O2SAT 100
[2023-09-11 20:00] VITALS: BP 116/92; TEMP 97.7; O2SAT 100
[2023-09-11] MEDS: MIRTAZAPINE 15 MG TABLET GT SCH (21:14)
[2023-09-11] MEDS: LORAZEPAM INJ 2 MG/ML VIAL IV PRN (21:45)
[2023-09-11] MEDS: GLUCERNA 1.2 1,000 ML BOTTLE NG PRN (23:35)
[2023-09-12] VITALS: BP 134/98; TEMP 97.7; O2SAT 99
[2023-09-12] MEDS: IPRATROPIUM NEB FS 0.5 MG/2.5 ML AMPUL.NEB NEB SCH ×4 (02:16→21:14)
[2023-09-12] MEDS: ALBUTEROL FS 2.5 MG/0.5 ML VIAL.NEB NEB SCH ×4 (02:17→21:14)
[2023-09-12 04:00] VITALS: BP 148/99; TEMP 97.5; O2SAT 99
[2023-09-12] MEDS: INSULIN REGULAR, HUMAN 100 UNIT/ML 3 ML VIAL SQ PRN (05:57)
[2023-09-12] MEDS: LEVOTHYROXINE SODIUM 25 MCG TABLET GT SCH (06:09)
[2023-09-12 06:10] LABS: CALCIUM, SERUM 9.8 mg/dL (8.5-10.1); CREATININE 0.7 mg/dL (0.6-1.3); POTASSIUM 4.4 mmol/L (3.5-5.1)
[2023-09-12] MEDS: BLOOD SUGAR DIAGNOSTIC 1 EACH STRIP IN SCH ×4 (06:11→23:52)
[2023-09-12] MEDS: DILTIAZEM HCL 30 MG TABLET GT SCH ×4 (06:11→23:32)
[2023-09-12 08:00] VITALS: BP 127/65; TEMP 97.1; O2SAT 100
[2023-09-12] MEDS: LEVETIRACETAM SOL (5 ML) 100 MG/ML UDC GT SCH ×2 (08:31→20:10)
[2023-09-12] MEDS: PANTOPRAZOLE 40 MG/PACK PACK GT SCH (08:31)
[2023-09-12] MEDS: methylPREDNISolone SOD SUCC 125 MG/2ML VIAL IV SCH ×2 (08:31→16:12)
[2023-09-12] MEDS: DOCUSATE SODIUM LIQ 100 MG/10 ML UDC GT SCH (08:31)
[2023-09-12] MEDS: CHLORHEXIDINE GLUCONATE 15 ML UDC MM SCH ×2 (08:31→20:10)
[2023-09-12] MEDS: LamoTRIgine 100 MG TABLET GT SCH (08:32)
[2023-09-12] MEDS: ASCORBIC ACID 500 MG TABLET GT SCH (08:32)
[2023-09-12] MEDS: MULTIVITAMINS,THERAGRAN 1 UDTAB TABLET GT SCH (08:32)
[2023-09-12] MEDS: METOPROLOL TARTRATE 50 MG TABLET GT SCH ×2 (08:33→20:10)
[2023-09-12] MEDS: APIXABAN 2.5 MG TABLET PO SCH ×2 (08:35→16:13)
[2023-09-12] MEDS: MUPIROCIN OINT 2% 22 GM TUBE NS SCH ×2 (08:36→21:20)
[2023-09-12] MEDS: PROSOURCE / PROSTAT (PYXIS) 30 ML UDC GT SCH (08:36)
[2023-09-12 12:00] VITALS: BP 165/102; TEMP 97.7; O2SAT 100
[2023-09-12] MEDS: DIGOXIN 0.125 MG TABLET GT SCH (12:08)
[2023-09-12 16:00] VITALS: BP 160/102; TEMP 98.3; O2SAT 100
[2023-09-12 20:00] VITALS: BP 163/100; TEMP 98.4; O2SAT 99
[2023-09-12] MEDS: LORAZEPAM INJ 2 MG/ML VIAL IV PRN (21:13)
[2023-09-12] MEDS: MIRTAZAPINE 15 MG TABLET GT SCH (22:20)
[2023-09-13] VITALS: BP 115/68; TEMP 98; O2SAT 97
[2023-09-13] MEDS: INSULIN REGULAR, HUMAN 100 UNIT/ML 3 ML VIAL SQ PRN ×2 (00:12→12:21)
[2023-09-13] MEDS: ALBUTEROL FS 2.5 MG/0.5 ML VIAL.NEB NEB SCH ×4 (01:51→20:12)
[2023-09-13] MEDS: IPRATROPIUM NEB FS 0.5 MG/2.5 ML AMPUL.NEB NEB SCH ×4 (01:51→20:12)
[2023-09-13] MEDS: GLUCERNA 1.2 1,000 ML BOTTLE NG PRN (03:32)
[2023-09-13 04:00] VITALS: BP 143/92; TEMP 98; O2SAT 100
[2023-09-13] MEDS: DILTIAZEM HCL 30 MG TABLET GT SCH ×3 (05:41→17:16)
[2023-09-13] MEDS: BLOOD SUGAR DIAGNOSTIC 1 EACH STRIP IN SCH ×3 (05:54→17:16)
[2023-09-13] MEDS: LEVOTHYROXINE SODIUM 25 MCG TABLET GT SCH (06:33)
[2023-09-13 07:31] LABS: CALCIUM, SERUM 9.6 mg/dL (8.5-10.1); CREATININE 0.8 mg/dL (0.6-1.3); POTASSIUM 4.1 mmol/L (3.5-5.1)
[2023-09-13 08:00] VITALS: BP 155/98; TEMP 98.1; O2SAT 100
[2023-09-13] MEDS: LEVETIRACETAM SOL (5 ML) 100 MG/ML UDC GT SCH ×2 (09:06→21:08)
[2023-09-13] MEDS: MULTIVITAMINS,THERAGRAN 1 UDTAB TABLET GT SCH (09:06)
[2023-09-13] MEDS: CHLORHEXIDINE GLUCONATE 15 ML UDC MM SCH ×2 (09:06→21:09)
[2023-09-13] MEDS: DOCUSATE SODIUM LIQ 100 MG/10 ML UDC GT SCH (09:06)
[2023-09-13] MEDS: methylPREDNISolone SOD SUCC 125 MG/2ML VIAL IV SCH ×2 (09:06→17:14)
[2023-09-13] MEDS: ASCORBIC ACID 500 MG TABLET GT SCH (09:06)
[2023-09-13] MEDS: LamoTRIgine 100 MG TABLET GT SCH (09:07)
[2023-09-13] MEDS: PANTOPRAZOLE 40 MG/PACK PACK GT SCH (09:07)
[2023-09-13] MEDS: METOPROLOL TARTRATE 50 MG TABLET GT SCH ×2 (09:08→21:08)
[2023-09-13] MEDS: APIXABAN 2.5 MG TABLET PO SCH ×2 (09:09→17:15)
[2023-09-13] MEDS: PROSOURCE / PROSTAT (PYXIS) 30 ML UDC GT SCH (09:11)
[2023-09-13] MEDS: MUPIROCIN OINT 2% 22 GM TUBE NS SCH ×2 (09:12→21:09)
[2023-09-13 12:00] VITALS: BP 160/99; TEMP 98; O2SAT 100
[2023-09-13] MEDS: DIGOXIN 0.125 MG TABLET GT SCH (12:20)
[2023-09-13 16:00] VITALS: BP 138/98; TEMP 98; O2SAT 100
[2023-09-13 20:00] VITALS: BP 147/111; TEMP 98.6; O2SAT 100
[2023-09-13] MEDS: MIRTAZAPINE 15 MG TABLET GT SCH (21:09)
[2023-09-14] VITALS: BP_SYST 147; BP_SYST 152; BP_DIAS 111; BP_DIAS 96; TEMP 97.9; TEMP 98.6; O2SAT 100; O2SAT 99
[2023-09-14] MEDS: DILTIAZEM HCL 30 MG TABLET GT SCH ×3 (00:13→12:10)
[2023-09-14] MEDS: BLOOD SUGAR DIAGNOSTIC 1 EACH STRIP IN SCH ×3 (00:22→12:21)
[2023-09-14] MEDS: INSULIN REGULAR, HUMAN 100 UNIT/ML 3 ML VIAL SQ PRN ×3 (00:24→12:23)
[2023-09-14] MEDS: IPRATROPIUM NEB FS 0.5 MG/2.5 ML AMPUL.NEB NEB SCH ×3 (01:58→13:59)
[2023-09-14] MEDS: ALBUTEROL FS 2.5 MG/0.5 ML VIAL.NEB NEB SCH ×3 (01:58→13:59)
[2023-09-14 04:00] VITALS: BP 149/86; TEMP 97.5; O2SAT 98
[2023-09-14] MEDS: GLUCERNA 1.2 1,000 ML BOTTLE NG PRN (05:20)
[2023-09-14] MEDS: LEVOTHYROXINE SODIUM 25 MCG TABLET GT SCH (06:22)
[2023-09-14 06:49] LABS: BASOPHILS % (AUTO) 0.3 % (0.0-2.0); EOSINOPHILS % (AUTO) 0.3 % (0.0-6.0); HEMATOCRIT 42 % (33-45); LYMPHOCYTES # (AUTO) 0.8 K/uL (0.8-4.8); LYMPHOCYTES % (AUTO) 7.5 % (20.0-44.0); MEAN CORPUSCULAR HEMOGLOBIN 29 PG (26.0-33.0); MEAN CORPUSCULAR HGB CONC 31 g/dl (31.0-36.0); MEAN CORPUSCULAR VOLUME 93 fL (82-100); MONOCYTES # (AUTO) 1.4 K/uL (0.1-1.30); MONOCYTES % (AUTO) 12.7 % (2.0-12.0); NEUTROPHILS # (AUTO) 8.8 K/uL (1.8-8.9); NEUTROPHILS % (AUTO) 79.2 % (43.0-81.0); PLATELET COUNT (AUTO) 322 K/uL (150-450); RED BLOOD CELL COUNT(AUTO) 4.53 MIL/uL (4.0-5.2); RED CELL DISTRIBUTION WIDTH 17.3 % (11.5-15.0); WHITE BLOOD COUNT (AUTO) 11.1 K/uL (4.3-11.0)
[2023-09-14 06:59] LABS: CALCIUM, SERUM 9.7 mg/dL (8.5-10.1); CARBON DIOXIDE 34 mmol/L (21-32); CHLORIDE 100 mmol/L (98-107); CREATININE 0.7 mg/dL (0.6-1.3); GLUCOSE 103 mg/dL (74-106); MAGNESIUM 2.7 mg/dL (1.8-2.4); PHOSPHORUS 4.8 mg/dL (2.5-4.9); POTASSIUM 3.7 mmol/L (3.5-5.1); SODIUM SERUM 142 mmol/L (136-145); UREA NITROGEN, BLOOD 40 mg/dL (7-18)
[2023-09-14 08:00] VITALS: BP 130/87; TEMP 98; O2SAT 99
[2023-09-14] MEDS: methylPREDNISolone SOD SUCC 125 MG/2ML VIAL IV SCH (08:56)
[2023-09-14] MEDS: APIXABAN 2.5 MG TABLET PO SCH (08:57)
[2023-09-14] MEDS: ASCORBIC ACID 500 MG TABLET GT SCH (08:58)
[2023-09-14] MEDS: DOCUSATE SODIUM LIQ 100 MG/10 ML UDC GT SCH (08:58)
[2023-09-14] MEDS: LamoTRIgine 100 MG TABLET GT SCH (08:58)
[2023-09-14] MEDS: LEVETIRACETAM SOL (5 ML) 100 MG/ML UDC GT SCH (08:58)
[2023-09-14] MEDS: MULTIVITAMINS,THERAGRAN 1 UDTAB TABLET GT SCH (08:58)
[2023-09-14] MEDS: CHLORHEXIDINE GLUCONATE 15 ML UDC MM SCH (08:59)
[2023-09-14] MEDS: PROSOURCE / PROSTAT (PYXIS) 30 ML UDC GT SCH (08:59)
[2023-09-14] MEDS: METOPROLOL TARTRATE 50 MG TABLET GT SCH (09:02)
[2023-09-14] MEDS: PANTOPRAZOLE 40 MG/PACK PACK GT SCH (09:02)
[2023-09-14 12:00] VITALS: BP 180/126; TEMP 99.2; O2SAT 95
[2023-09-14 12:10] VITALS: BP 180/126
[2023-09-14] MEDS: DIGOXIN 0.125 MG TABLET GT SCH (12:11)
[2023-09-14] MEDS ORDERED: GLUCERNA 1.2 1,000 ML BOTTLE NG PRN (12:30)
[2023-09-14 13:30] LABS: APPEARANCE,URINE SLIGHTLY CLOUDY (CLEAR); BILIRUBIN,URINE NEGATIVE (NEGATIVE); BLOOD, URINE 2+ Ery/uL (NEGATIVE); COLOR,URINE YELLOW (YELLOW); KETONES,URINE NEGATIVE (NEGATIVE); LEUKOCYTE ESTERASE ,URINE NEGATIVE (NEGATIVE); NITRITE, URINE NEGATIVE (NEGATIVE); PH,URINE 6.5 (5.0-8.0); PROTEIN,URINE 3+ mg/dl (NEGATIVE); UGLUCOSE NEGATIVE (NEGATIVE)
[2023-09-14 13:43] LABS: ADD URINE CULTURE YES; BACTERIA,URINE Moderate /HPF (None Seen); WBC,URINE 0-2 /HPF (0-3)
[2023-09-14 13:44] LABS: SQUAMOUS EPITHELIAL CELL,UR Moderate /HPF (None Seen)
[2023-09-14 13:45] LABS: HYALINE CASTS, URINE Few /LPF (None Seen)
[2023-09-14] MEDS ORDERED: NITROFURANTOIN/MONOHYDRATE MACROCRYSTALS 100 MG CAPSULE PO SCH (14:30)
[2023-09-14] MEDS: LORAZEPAM INJ 2 MG/ML VIAL IV PRN (15:28)
== END 2023-09-14 17:23 | DRG 870 ==
LOC: ER 16:42 → TELE1 22:24 → ICU 09-08 11:26 → TELE-TD 09-09 17:00 → TELE1 09-09 17:23
PROVIDERS: ADMIT Nurse Practitioner Acute Care; ATTEND Nurse Practitioner Family
PROC: 5A1955Z Respiratory Ventilation, Greater than 96 Consecutive Hours (ICD-10-PCS; principal; 2023-09-02)
PROC: 05HB33Z Insertion of Infusion Device into Right Basilic Vein, Percutaneous Approach (ICD-10-PCS; 2023-09-06)
PROC: 05HC33Z Insertion of Infusion Device into Left Basilic Vein, Percutaneous Approach (ICD-10-PCS; 2023-09-11)
DX: A41.9 Sepsis, unspecified organism (principal); G93.41 Metabolic encephalopathy; J96.21 Acute and chronic respiratory failure with hypoxia; J96.22 Acute and chronic respiratory failure with hypercapnia; J95.851 Ventilator associated pneumonia; Z99.11 Dependence on respirator [ventilator] status; J44.0 Chronic obstructive pulmonary disease with (acute) lower respiratory infection; I31.39 Other pericardial effusion (noninflammatory); N39.0 Urinary tract infection, site not specified; J90 Pleural effusion, not elsewhere classified; I82.509 Chronic embolism and thrombosis of unspecified deep veins of unspecified lower extremity; M81.0 Age-related osteoporosis without current pathological fracture; F02.80 Dementia in other diseases classified elsewhere, unspecified severity, without behavioral disturbance, psychotic disturbance, mood disturbance, and anxiety; G20.A1 Parkinson's disease without dyskinesia, without mention of fluctuations; G40.909 Epilepsy, unspecified, not intractable, without status epilepticus; I11.0 Hypertensive heart disease with heart failure; I50.9 Heart failure, unspecified; I48.91 Unspecified atrial fibrillation; Z93.1 Gastrostomy status; Z93.0 Tracheostomy status; R13.10 Dysphagia, unspecified; E78.5 Hyperlipidemia, unspecified; E03.9 Hypothyroidism, unspecified; Z88.8 Allergy status to other drugs, medicaments and biological substances; Z79.01 Long term (current) use of anticoagulants; Z79.51 Long term (current) use of inhaled steroids; Z79.890 Hormone replacement therapy; B96.89 Other specified bacterial agents as the cause of diseases classified elsewhere; Y84.8 Other medical procedures as the cause of abnormal reaction of the patient, or of later complication, without mention of misadventure at the time of the procedure; Y92.129 Unspecified place in nursing home as the place of occurrence of the external cause; I70.0 Atherosclerosis of aorta; G25.81 Restless legs syndrome; E11.9 Type 2 diabetes mellitus without complications; E87.6 Hypokalemia
CPT/HCPCS: 31720; 36410; 36415; 36600; 71045-TC; 80048-TC; 80202-TC; 81001; 82962-TC; 83605-TC; 83735-TC; 83880; 84100-TC; 84443-TC; 84484-TC; 85025-TC; 87040-TC; 87081-TC; 87086-TC; 93307-TC; 93970-TC; 94002-TC; 94003-TC; 94760-TC; 94762-TC; 94799-TC; 99082-TC; A4223; A4623; A7526; C9113; G0378; J0692; J1650; J1815; J1953; J2060; J2405; J2930; J3370; J7050; J7060; Q9967

== ENCOUNTER 2024-03-28 10:46 | Inpatient (IN) | payer MEDICARE, OTHER ==
[~2024-03-28] VITALS: Ht 160 cm; Wt 70.3 kg
[~2024-03-28 10:46] MED LIST changes: +ACET-868 GT; -ALLO100T GT; +APIX2.5T GT; +ASCO-352 GT; -ATOR10TA GT; -BISA10SU11 RC; -BUDE0.5A4 IH; -BUDE0.5A6 IH; +CHLO473M5 MM; +CRAN3875 GT; +CRAN425C6 GT; +DIGO125T GT; +DILT30TA14 GT; -DIVA125T2 GT; -FERR220S2 GT; -HYDR-3974 GT; +LANS30CA56 GT; +LEVE100S GT; +METO25TA20 GT; +MIRT7.5T10 GT; +MULT-447 GT; -NA P133E RC; +NUTR250L58 GT; -OMEP20CA15 GT; -PRAM0.5T11 GT; -PRIM250T GT; -RIVA10TA GT; -SENN-261 GT; +SUCR1ORA6 GT; +ZINC56.713 TP
[2024-03-28] MEDS: MORPHINE SULFATE INJ 2 MG/ML DISP.SYRIN IV ONE (11:42)
[2024-03-28] MEDS ORDERED: ONDANSETRON HCL/PF 4 MG/2 ML VIAL ONE (11:46)
[2024-03-28] MEDS ORDERED: MORPHINE SULFATE INJ 4 MG/ML DISP.SYRIN ONE (11:46)
[2024-03-28] MEDS: ONDANSETRON HCL/PF 4 MG/2 ML VIAL IV ONE (11:49)
[2024-03-28 11:52] LABS: BASOPHILS % (AUTO) 0.5 % (0.0-2.0); EOSINOPHILS % (AUTO) 0.4 % (0.0-6.0); HEMATOCRIT 37 % (33-45); HEMOGLOBIN 12.1 g/dL (11.5-14.8); LYMPHOCYTES # (AUTO) 0.6 K/uL (0.8-4.8); LYMPHOCYTES % (AUTO) 6.8 % (20.0-44.0); MEAN CORPUSCULAR HEMOGLOBIN 30 PG (26.0-33.0); MEAN CORPUSCULAR HGB CONC 33 g/dl (31.0-36.0); MEAN CORPUSCULAR VOLUME 94 fL (82-100); MONOCYTES # (AUTO) 0.8 K/uL (0.1-1.30); MONOCYTES % (AUTO) 8.5 % (2.0-12.0); NEUTROPHILS # (AUTO) 7.6 K/uL (1.8-8.9); NEUTROPHILS % (AUTO) 83.8 % (43.0-81.0); PLATELET COUNT (AUTO) 300 K/uL (150-450); RED BLOOD CELL COUNT(AUTO) 3.99 MIL/uL (4.0-5.2); RED CELL DISTRIBUTION WIDTH 16.7 % (11.5-15.0); WHITE BLOOD COUNT (AUTO) 9.1 K/uL (4.3-11.0)
[2024-03-28 12:00] LABS: CARBON DIOXIDE 28 mmol/L (21-32); CHLORIDE 96 mmol/L (98-107); CREATININE 0.8 mg/dL (0.6-1.3); GLUCOSE 114 mg/dL (74-106); POTASSIUM 4.3 mmol/L (3.5-5.1); SODIUM SERUM 130 mmol/L (136-145); UREA NITROGEN, BLOOD 31 mg/dL (7-18)
[2024-03-28 12:04] LABS: INR 1.18 (0.91-1.10); PARTIAL THROMBOPLASTIN TIME 26.5 SEC (24.3-34.3)
[2024-03-28 12:12] LABS: ALANINE AMINOTRANSFERASE 17 U/L (12-78); ALBUMIN 3.6 g/dL (3.4-5.0); ALKALINE PHOSPHATASE 70 U/L (46-116); ASPARTATE AMINOTRANSFERASE 34 U/L (15-37); BILIRUBIN,DIRECT 0.3 mg/dL (0.0-0.2); BILIRUBIN,TOTAL 0.7 mg/dL (0.2-1.0); CALCIUM, SERUM 9.2 mg/dL (8.5-10.1); TOTAL PROTEIN, SERUM 7.4 g/dL (6.4-8.2)
[2024-03-28] MEDS ORDERED: DILTIAZEM GT (12:24)
[2024-03-28] MEDS ORDERED: ONDA-97 GT (12:24)
[2024-03-28] MEDS ORDERED: IPRA0.2S49 IH (12:24)
[2024-03-28] MEDS ORDERED: INSU100V42 SQ (12:24)
[2024-03-28] MEDS ORDERED: DOCU100C36 GT (12:24)
[2024-03-28] MEDS ORDERED: PANT40SU2 GT (12:24)
[2024-03-28] MEDS ORDERED: SODI100037 GT (12:24)
[2024-03-28] MEDS ORDERED: FURO20TA4 GT (12:24)
[2024-03-28] MEDS ORDERED: ALBU2.5V13 IH (12:24)
[2024-03-28] MEDS ORDERED: ACET325T53 GT (12:24)
[2024-03-28] MEDS ORDERED: HYDR-4303 GT ×2 (12:24)
[2024-03-28] MEDS ORDERED: MULT-225 GT (12:24)
[2024-03-28] MEDS ORDERED: NUT.237L30 PO (12:24)
[2024-03-28] MEDS ORDERED: FENO145T GT (12:24)
[2024-03-28] MEDS ORDERED: MAG HYDROX/AL HYDROX/SIMETH 30 ML UDC PO PRN (15:00)
[2024-03-28] MEDS ORDERED: MAGNESIUM HYDROXIDE 30 ML UDC PO PRN (15:00)
[2024-03-28] MEDS ORDERED: DEXTROSE 50%-WATER 50 ML DISP.SYRIN IV PRN (15:00)
[2024-03-28] MEDS ORDERED: MAGNESIUM HYDROXIDE 30 ML UDC GT PRN (15:00)
[2024-03-28] MEDS ORDERED: ONDANSETRON HCL/PF 4 MG/2 ML VIAL IVP PRN (15:00)
[2024-03-28] MEDS ORDERED: Medication Not On Formulary EA (Ondansetron Hcl 4 MG) GT PRN (15:00)
[2024-03-28] MEDS ORDERED: Z GUARD REMEDY 4 OZ OINT TP PRN (15:00)
[2024-03-28 16:00] VITALS: BP 126/87; TEMP 99; O2SAT 100
[2024-03-28] MEDS: SODIUM CHLORIDE 1000 MG TABLET GT SCH (17:53)
[2024-03-28] MEDS: ACETAMINOPHEN 650 MG/20.3 ML UDC GT SCH (17:53)
[2024-03-28] MEDS: BLOOD SUGAR DIAGNOSTIC 1 EACH STRIP VI SCH (17:53)
[2024-03-28] MEDS ORDERED: MAG HYDROX/AL HYDROX/SIMETH 30 ML UDC GT PRN (18:40)
[2024-03-28 20:00] VITALS: BP 118/78; TEMP 97.3; O2SAT 100
[2024-03-28] MEDS: ALBUTEROL FS 2.5 MG/0.5 ML VIAL.NEB IH SCH (20:06)
[2024-03-28] MEDS: IPRATROPIUM NEB FS 0.5 MG/2.5 ML AMPUL.NEB IH SCH (20:06)
[2024-03-28] MEDS ORDERED: DIATR MEGLU/DIATRIZOATE SODIUM 30 ML BOTTLE (GASTROGRAPHIN) ONE (20:49)
[2024-03-28] MEDS: DOCUSATE SODIUM LIQ 100 MG/10 ML UDC GT SCH (21:26)
[2024-03-28] MEDS: LEVETIRACETAM SOL (5 ML) 100 MG/ML UDC GT SCH (21:26)
[2024-03-28] MEDS: METOPROLOL TARTRATE 25 MG TABLET GT SCH (21:27)
[2024-03-28] MEDS: MIRTAZAPINE 15 MG TABLET GT SCH (21:28)
[2024-03-28] MEDS: ZINC OXIDE 56.7 GM TUBE TP SCH (21:46)
[2024-03-28 21:53] VITALS: BP 118/78; TEMP 97.3; O2SAT 100
[2024-03-28] MEDS: GLUCERNA 1.2 1,000 ML BOTTLE NG PRN (21:53)
[2024-03-29] VITALS: BP 102/89; TEMP 98.7; O2SAT 100
[2024-03-29] MEDS: ACETAMINOPHEN 650 MG/20.3 ML UDC GT PRN (01:51)
[2024-03-29 04:00] VITALS: BP 109/63; TEMP 98.5; O2SAT 100
[2024-03-29] MEDS: HYDROCODONE/APAP 10/325MG TABLET GT PRN (04:10)
[2024-03-29] MEDS: INSULIN REGULAR, HUMAN 100 UNIT/ML 3 ML VIAL SQ PRN (05:30)
[2024-03-29] MEDS: MORPHINE SULFATE INJ 2 MG/ML DISP.SYRIN IV ONE (06:11)
[2024-03-29 08:00] VITALS: BP 96/79; TEMP 98.2; O2SAT 98
[2024-03-29] MEDS: MULTIVIT W/MINERALS 1 TAB TABLET GT SCH (08:39)
[2024-03-29] MEDS: LamoTRIgine 100 MG TABLET GT SCH (08:39)
[2024-03-29] MEDS: LEVOTHYROXINE SODIUM 25 MCG TABLET GT SCH (08:39)
[2024-03-29] MEDS: PANTOPRAZOLE 40 MG/PACK PACK GT SCH (08:39)
[2024-03-29] MEDS: DIGOXIN 0.125 MG TABLET GT SCH (08:40)
[2024-03-29 09:08] LABS: BASOPHILS # (AUTO) 0.1 K/uL (0.0-0.2); BASOPHILS % (AUTO) 0.5 % (0.0-2.0); EOSINOPHILS % (AUTO) 0.4 % (0.0-6.0); HEMATOCRIT 35 % (33-45); HEMOGLOBIN 11.3 g/dL (11.5-14.8); LYMPHOCYTES # (AUTO) 0.8 K/uL (0.8-4.8); LYMPHOCYTES % (AUTO) 7.3 % (20.0-44.0); MEAN CORPUSCULAR HEMOGLOBIN 31 PG (26.0-33.0); MEAN CORPUSCULAR HGB CONC 33 g/dl (31.0-36.0); MEAN CORPUSCULAR VOLUME 95 fL (82-100); MONOCYTES # (AUTO) 0.7 K/uL (0.1-1.30); MONOCYTES % (AUTO) 6.8 % (2.0-12.0); NEUTROPHILS # (AUTO) 9.2 K/uL (1.8-8.9); PLATELET COUNT (AUTO) 284 K/uL (150-450); RED BLOOD CELL COUNT(AUTO) 3.61 MIL/uL (4.0-5.2); WHITE BLOOD COUNT (AUTO) 10.9 K/uL (4.3-11.0)
[2024-03-29 09:32] LABS: CALCIUM, SERUM 8.9 mg/dL (8.5-10.1); MAGNESIUM 2.5 mg/dL (1.8-2.4); POTASSIUM 3.1 mmol/L (3.5-5.1)
[2024-03-29 12:00] VITALS: BP 109/62; TEMP 98.3; O2SAT 99
[2024-03-29] MEDS: POTASSIUM CHLORIDE 20 MEQ TAB.PRT.SR PO ONE (12:20)
[2024-03-29] MEDS: POTASSIUM CHLORIDE 20 MEQ POWDER PACKET PO ONE (12:22)
[2024-03-29] MEDS: ENOXAPARIN SODIUM 40 MG/0.4 ML DISP.SYRIN SQ SCH (14:08)
[2024-03-29 16:00] VITALS: BP 108/59; TEMP 98.6; O2SAT 99
[2024-03-29 20:00] VITALS: BP 114/77; TEMP 99; O2SAT 100
[2024-03-29] MEDS: GLUCERNA 1.2 1,000 ML BOTTLE NG PRN (21:24)
[2024-03-29] MEDS: *INSULIN REGULAR(HUMULIN R)HUM 100 UNIT/ML VIAL SQ PRN (21:59)
[2024-03-30] VITALS: BP 129/98; TEMP 99.3; O2SAT 100
[2024-03-30 04:00] VITALS: BP 132/100; TEMP 99.3; O2SAT 99
[2024-03-30 05:00] VITALS: BP 132/100; TEMP 99.3; O2SAT 99
[2024-03-30 06:48] LABS: BASOPHILS # (AUTO) 0.1 K/uL (0.0-0.2); BASOPHILS % (AUTO) 0.6 % (0.0-2.0); EOSINOPHILS # (AUTO) 0.2 K/uL (0.0-0.7); EOSINOPHILS % (AUTO) 1.7 % (0.0-6.0); HEMATOCRIT 33 % (33-45); HEMOGLOBIN 10.8 g/dL (11.5-14.8); LYMPHOCYTES # (AUTO) 1.1 K/uL (0.8-4.8); LYMPHOCYTES % (AUTO) 11.1 % (20.0-44.0); MEAN CORPUSCULAR HEMOGLOBIN 31 PG (26.0-33.0); MEAN CORPUSCULAR HGB CONC 32 g/dl (31.0-36.0); MEAN CORPUSCULAR VOLUME 97 fL (82-100); MONOCYTES # (AUTO) 1.1 K/uL (0.1-1.30); MONOCYTES % (AUTO) 10.8 % (2.0-12.0); NEUTROPHILS # (AUTO) 7.6 K/uL (1.8-8.9); NEUTROPHILS % (AUTO) 75.8 % (43.0-81.0); PLATELET COUNT (AUTO) 280 K/uL (150-450); RED BLOOD CELL COUNT(AUTO) 3.43 MIL/uL (4.0-5.2); RED CELL DISTRIBUTION WIDTH 16.7 % (11.5-15.0)
[2024-03-30 07:06] LABS: CALCIUM, SERUM 9.2 mg/dL (8.5-10.1); MAGNESIUM 2.6 mg/dL (1.8-2.4); POTASSIUM 3.9 mmol/L (3.5-5.1)
[2024-03-30 08:00] VITALS: BP 99/54; TEMP 97.4; O2SAT 100
[2024-03-30 08:27] LABS: THYROID STIMULATING HORMONE 2.742 uIU/mL (0.358-3.74); URIC ACID 4.3 mg/dL (2.6-7.2)
[2024-03-30 16:00] VITALS: BP 150/72; TEMP 97.5; O2SAT 100
[2024-03-30 20:00] VITALS: BP 113/69; TEMP 97.7; O2SAT 100
[2024-03-31] VITALS: BP 98/55; TEMP 98.1; O2SAT 100
[2024-03-31] MEDS: LORAZEPAM 1 MG TABLET GT PRN (03:14)
[2024-03-31 04:00] VITALS: BP 110/61; TEMP 98.8; O2SAT 100
[2024-03-31 07:47] LABS: BASOPHILS # (AUTO) 0.1 K/uL (0.0-0.2); BASOPHILS % (AUTO) 0.6 % (0.0-2.0); EOSINOPHILS # (AUTO) 0.2 K/uL (0.0-0.7); HEMATOCRIT 32 % (33-45); HEMOGLOBIN 10.4 g/dL (11.5-14.8); LYMPHOCYTES # (AUTO) 0.9 K/uL (0.8-4.8); LYMPHOCYTES % (AUTO) 9.9 % (20.0-44.0); MEAN CORPUSCULAR HEMOGLOBIN 32 PG (26.0-33.0); MEAN CORPUSCULAR HGB CONC 33 g/dl (31.0-36.0); MEAN CORPUSCULAR VOLUME 96 fL (82-100); MONOCYTES # (AUTO) 1.1 K/uL (0.1-1.30); MONOCYTES % (AUTO) 11.6 % (2.0-12.0); NEUTROPHILS % (AUTO) 75.9 % (43.0-81.0); PLATELET COUNT (AUTO) 312 K/uL (150-450); RED BLOOD CELL COUNT(AUTO) 3.28 MIL/uL (4.0-5.2); RED CELL DISTRIBUTION WIDTH 16.9 % (11.5-15.0); WHITE BLOOD COUNT (AUTO) 9.3 K/uL (4.3-11.0)
[2024-03-31 08:00] VITALS: BP 127/77; TEMP 98.9; O2SAT 98
[2024-03-31 08:04] LABS: CALCIUM, SERUM 10.1 mg/dL (8.5-10.1); CREATININE 0.9 mg/dL (0.6-1.3); POTASSIUM 4.2 mmol/L (3.5-5.1)
[2024-03-31 16:00] VITALS: BP 132/96; TEMP 97.9; O2SAT 98
== END 2024-03-31 18:45 | DRG 543 ==
LOC: ER 10:53 → TELE 14:29 → MED 19:47 → TELE 21:15
PROVIDERS: ADMIT Internal Medicine; ATTEND Internal Medicine
PROC: 5A1945Z Respiratory Ventilation, 24-96 Consecutive Hours (ICD-10-PCS; principal; 2024-03-28)
DX: M80.052A Age-related osteoporosis with current pathological fracture, left femur, initial encounter for fracture (principal); E87.1 Hypo-osmolality and hyponatremia; J96.10 Chronic respiratory failure, unspecified whether with hypoxia or hypercapnia; Z99.11 Dependence on respirator [ventilator] status; W06.XXXA Fall from bed, initial encounter; G20.A1 Parkinson's disease without dyskinesia, without mention of fluctuations; G40.909 Epilepsy, unspecified, not intractable, without status epilepticus; E11.9 Type 2 diabetes mellitus without complications; D64.9 Anemia, unspecified; E03.9 Hypothyroidism, unspecified; E87.6 Hypokalemia; I11.0 Hypertensive heart disease with heart failure; I48.91 Unspecified atrial fibrillation; I50.9 Heart failure, unspecified; R13.10 Dysphagia, unspecified; Z79.01 Long term (current) use of anticoagulants; J44.9 Chronic obstructive pulmonary disease, unspecified; Z79.4 Long term (current) use of insulin; Z93.1 Gastrostomy status; Z93.0 Tracheostomy status; M89.8X9 Other specified disorders of bone, unspecified site; E78.5 Hyperlipidemia, unspecified; Y93.9 Activity, unspecified; Y92.129 Unspecified place in nursing home as the place of occurrence of the external cause; Z74.01 Bed confinement status; F02.80 Dementia in other diseases classified elsewhere, unspecified severity, without behavioral disturbance, psychotic disturbance, mood disturbance, and anxiety
CPT/HCPCS: 31720; 36415; 70450-TC; 71045-TC; 73502; 73552; 74018; 80048-TC; 80076-TC; 82962-TC; 83735-TC; 84100-TC; 84443-TC; 84484-TC; 84550-TC; 85025-TC; 85730-TC; 86850-TC; 93307-TC; 94002-TC; 94003-TC; 94760-TC; 94799-TC; 99082-TC; A6253; G0378; J1650; J1815; J1953; J2270; J2405; Q9963